=== PATIENT | female | born 1960 | race Hispanic/Latino ===

== ENCOUNTER 2017-09-28 22:54 | Emergency (ER) | payer MEDICAID, SELFPAY ==
[2017-09-28] MEDS ORDERED: Ondansetron HCl/PF 4 MG/2 ML Vial ONE (23:14)
[2017-09-28 23:21] LABS: #Basophils 0.1 thou/uL (0.0-0.2); #Lymphocytes 1.8 thou/uL (1.20-3.40); #Monocytes 0.6 thou/uL (0.11-0.59); #Neutrophils 13.3 thou/uL (1.40-6.50); %Basophils 0.5 % (0.0-1.0); %Eosinophils 0.2 % (0.0-10.0); %Lymphocytes 11.6 % (21.0-51.0); %Monocytes 3.5 % (0.0-10.0); %Neutrophils 84.1 % (42.0-75.0); Mean Corpuscular HGB CONC 33.4 g/dL (32.0-36.0); Mean Corpuscular Hemoglobin 30.7 pg (27.0-31.0); Mean Corpuscular Volume 91.8 fl (81.0-99.0); Platelet Count 343 thou/uL (130-400); RBC Distribution Width 12.1 % (11.5-14.5); White Blood Cell (WBC) Count 15.8 thou/uL (4.8-10.8)
[2017-09-28 23:42] LABS: ALT (SGPT) 13 U/L (8-55); AST (SGOT) 11 U/L (5-34); Albumin 4.5 g/dL (3.5-5.0); Alkaline Phosphatase 100 U/L (40-150); Anion Gap 15 mmol/L (10-20); BUN (Urea Nitrogen) 27 mg/dL (9.8-20.1); Bilirubin, Total 1.2 mg/dL (0.2-1.2); Calc. Creatinine Clearance 0 mL/min (70-130); Calcium 11.8 mg/dL (7.8-10.44); Carbon Dioxide 28 mmol/L (22-29); Chloride 100 mmol/L (98-107); Estimated GFR-MDRD 28; Globulin 3.9 g/dL (2.4-3.5); Glucose 433 mg/dL (70-105); Lipase 78 U/L (8-78); Potassium 3.9 mmol/L (3.5-5.1); Protein, Total 8.4 g/dL (6.0-8.3); Sodium 139 mmol/L (136-145)
[2017-09-28 23:53] LABS: Bilirubin Negative (Negative); Blood, Urine Trace (Negative); Clarity CLOUDY (Clear); Glucose, Urine (Dipstick) >=1000 mg/dL (Negative); Leukocyte Small (Negative); Nitrite Negative (Negative); Protein, Urine (Dipstick) > or equal to 300 mg/dL (Neg-Trace); Specific Gravity, Urine 1.024 (1.002-1.036)
[2017-09-28 23:56] LABS: Bacteria/HPF 1+ HPF (None Seen); Hyaline Casts/LPF 0-3 HYALINE CAST LPF (0-3 Hyaline); WBC/HPF 21-50 HPF (0-3)
[2017-09-29] LABS: Yeast-AUWi Flag 32.3 (0-25.0)
[2017-09-29] MEDS ORDERED: Ondansetron HCl/PF 4 MG/2 ML Vial ONE (00:08)
[2017-09-29 00:13] LABS: Renal Epithelial None Seen HPF (0-3); Transitional Epithelial NONE SEEN HPF (0-3); Yeast-All Forms None Seen HPF (None Seen)
[2017-09-29 00:17] LABS: CKMB 1.2 ng/mL (0-6.6)
[2017-09-29 01:12] LABS: Base Excess-Venous 1.3 mmol/L (-30.0-30.0); Bicarbonate (HCO3v) 25.3 mmol/L (1.0-85.0); CO2 Tension (PvCO2) 37.2 mmHg (41.0-51.0); Calcium, Ionized 1.25 mmol/L (1.12-1.32); Hemoglobin - Calc 12.5 g/dL (12.0-18.0); O2 Tension (PvO2) 47.9 mmHg (35.0-45.0); Potassium 3.5 mmol/L (3.4-4.7); T. Carbon Dioxide 26.5 mmol/L (1.0-85.0); pH (Venous) 7.441 (7.35-7.45)
[2017-09-29] MEDS ORDERED: Promethazine HCl 25 MG/ML VIAL ONE (01:52)
[2017-09-29] MEDS ORDERED: Amlodipine 5 MG TAB ONE (01:53)
[2017-09-29] MEDS ORDERED: Insulin Regular 300 UNITS/3 ML VIAL ONE (03:35)
--- NOTE | 2017-09-29 07:46 | RAD ---
RADIOGRAPH CHEST 1 VIEW: HISTORY: A 57-year-old female with chest pain. FINDINGS: There are no air space densities, pulmonary edema, pneumothorax, or cardiomegaly. The lateral costop hrenic angles are sharp. IMPRESSION: No acute cardiopulmonary findings. jn [] POS: JIN
== END 2017-09-29 05:30 | disposition home or self-care (01) ==
LOC: ERS 22:54
DX: E86.0 Dehydration (principal); E11.10 Type 2 diabetes mellitus with ketoacidosis without coma; E11.65 Type 2 diabetes mellitus with hyperglycemia; E03.9 Hypothyroidism, unspecified; Z79.4 Long term (current) use of insulin; Z79.899 Other long term (current) drug therapy
CPT/HCPCS: 36416; 71045; 80053; 81003; 81015; 82010; 82330; 82435; 82553; 82803; 83690; 84132; 84295; 84484; 85014; 85025; 93005; 96361; 96365; 96375; 96376; J1815; J2405; J2550

== ENCOUNTER 2017-09-30 17:58 | Emergency (ER) | payer SELFPAY ==
[2017-09-30 20:02] LABS: #Basophils 0.1 thou/uL (0.0-0.2); #Eosinphils 0.1 thou/uL (0.0-0.7); #Lymphocytes 2.6 thou/uL (1.20-3.40); %Basophils 0.7 % (0.0-1.0); %Eosinophils 0.8 % (0.0-10.0); %Lymphocytes 20.3 % (21.0-51.0); %Monocytes 7.7 % (0.0-10.0); %Neutrophils 70.5 % (42.0-75.0); Hemoglobin 12.8 g/dL (12.0-16.0); Mean Corpuscular HGB CONC 34.4 g/dL (32.0-36.0); Mean Corpuscular Hemoglobin 31.2 pg (27.0-31.0); Mean Corpuscular Volume 90.7 fl (81.0-99.0); Mean Platelet Volume 7.6 fL (7.4-10.4); Platelet Count 315 thou/uL (130-400); RBC Distribution Width 11.8 % (11.5-14.5); Red Blood Cell (RBC) Count 4.09 mill/uL (4.20-5.40); White Blood Cell (WBC) Count 12.8 thou/uL (4.8-10.8)
[2017-09-30 20:10] LABS: Base Excess-Venous 2.4 mmol/L (-30.0-30.0); Bicarbonate (HCO3v) 27.6 mmol/L (1.0-85.0); Calcium, Ionized 1.37 mmol/L (1.12-1.32); O2 Tension (PvO2) 23.6 mmHg (35.0-45.0); Potassium 3.4 mmol/L (3.4-4.7); pH (Venous) 7.406 (7.35-7.45); vO2 Saturation-calc 41.4 % (0.0-100.0)
[2017-09-30] MEDS ORDERED: Metoclopramide HCl 10 MG/2 ML VIAL ONE (20:12)
[2017-09-30 20:23] LABS: ALT (SGPT) 8 U/L (8-55); AST (SGOT) 9 U/L (5-34); Albumin 4.2 g/dL (3.5-5.0); Alkaline Phosphatase 81 U/L (40-150); Anion Gap 11 mmol/L (10-20); BUN (Urea Nitrogen) 22 mg/dL (9.8-20.1); Bilirubin, Total 1.2 mg/dL (0.2-1.2); Calc. Creatinine Clearance 0 mL/min (70-130); Calcium 11.2 mg/dL (7.8-10.44); Carbon Dioxide 27 mmol/L (22-29); Chloride 107 mmol/L (98-107); Estimated GFR-MDRD 31; Globulin 3.1 g/dL (2.4-3.5); Glucose 116 mg/dL (70-105); Potassium 3.4 mmol/L (3.5-5.1); Protein, Total 7.3 g/dL (6.0-8.3); Sodium 142 mmol/L (136-145)
== END 2017-09-30 21:00 | disposition home or self-care (01) ==
LOC: ERS 17:58
DX: R11.2 Nausea with vomiting, unspecified (principal); E03.9 Hypothyroidism, unspecified; I10 Essential (primary) hypertension; E11.42 Type 2 diabetes mellitus with diabetic polyneuropathy; Z79.899 Other long term (current) drug therapy
CPT/HCPCS: 80053; 82010; 82330; 82803; 85025; 96365; J2765

== ENCOUNTER 2018-05-22 17:21 | Outpatient (CLI) | payer MEDICAID ==
--- NOTE | 2018-05-22 18:52 | RAD ---
TWO VIEW CHEST: HISTORY: Shortness of breath. Cough. Possible pneumonia. FINDINGS: The lungs appear clear. no evidence of infiltrate identified. The heart and mediastinum are unremar kable. IMPRESSION: No evidence of infiltrate. POS: AGW
== END 2018-05-22 17:22 | disposition home or self-care (01) ==
LOC: RAD 17:21
PROVIDERS: ATTEND Internal Medicine
DX: J45.40 Moderate persistent asthma, uncomplicated (principal)
CPT/HCPCS: 71046

== ENCOUNTER 2019-08-02 11:35 | Inpatient (IN) | payer MEDICAID, OTHER ==
[2019-08-02] MEDS ORDERED: niCARdipine 25 MG in Sodium Chloride 0.9% 250 ML 240 ML IVPB SCH (12:15)
[2019-08-02] MEDS ORDERED: hydrALAZINE 20 MG/ML VIAL ONE (12:20)
[2019-08-02] MEDS ORDERED: Amlodipine 5 MG TAB ONE (12:33)
[2019-08-02] MEDS ORDERED: Ondansetron PF 4 MG/2 ML Vial ONE (12:35)
[2019-08-02 12:41] LABS: #Lymphocytes 1.5 thou/uL (1.20-3.40); #Monocytes 1.1 thou/uL (0.11-0.59); #Neutrophils 16.2 thou/uL (1.40-6.50); %Eosinophils 0.1 % (0.0-10.0); %Lymphocytes 7.9 % (21.0-51.0); %Monocytes 5.7 % (0.0-10.0); %Neutrophils 86.3 % (42.0-75.0); Mean Corpuscular Hemoglobin 30.9 pg (27.0-31.0); Mean Corpuscular Volume 91.1 fL (78.0-98.0); Mean Platelet Volume 7.9 fL (7.4-10.4); Platelet Count 333 thou/uL (130-400); Red Blood Cell (RBC) Count 3.87 mill/uL (4.20-5.40); White Blood Cell (WBC) Count 18.8 thou/uL (4.8-10.8)
[2019-08-02] MEDS ORDERED: Amlodipine 10 MG TAB PO SCH (12:45)
[2019-08-02 13:05] LABS: ALT (SGPT) 9 U/L (8-55); AST (SGOT) 11 U/L (5-34); Albumin 3.4 g/dL (3.5-5.0); Alkaline Phosphatase 79 U/L (40-110); Anion Gap 16 mmol/L (10-20); BUN (Urea Nitrogen) 55 mg/dL (9.8-20.1); Bilirubin, Total 0.7 mg/dL (0.2-1.2); Calc. Creatinine Clearance 0 mL/min (70-130); Calcium 9.7 mg/dL (7.8-10.44); Carbon Dioxide 18 mmol/L (22-29); Chloride 109 mmol/L (98-107); Estimated GFR-MDRD 9; Globulin 2.9 g/dL (2.4-3.5); Glucose 385 mg/dL (70-105); Potassium 4.6 mmol/L (3.5-5.1); Protein, Total 6.3 g/dL (6.0-8.3); Sodium 138 mmol/L (136-145)
[2019-08-02 13:56] LABS: CKMB 3.4 ng/mL (0-6.6)
[2019-08-02] MEDS ORDERED: Dextrose 5% in Water 1,000 ML IV PRN (16:05)
[2019-08-02] MEDS ORDERED: Dextrose 50% Abboject 50 ML SYRINGE SLOW IVP PRN (16:05)
[2019-08-02] MEDS ORDERED: Ondansetron PF 4 MG/2 ML Vial IVP PRN (16:10)
[2019-08-02] MEDS ORDERED: Acetaminophen 650 MG Suppository PR PRN (16:10)
[2019-08-02] MEDS ORDERED: Ondansetron ODT 4 MG TAB PO PRN (16:10)
--- NOTE | 2019-08-02 16:15 | PDOC.HHP ---
Hospitalist HPI - History of Present Illness N/V/D History of Present Illness: Mrs. Dang presents complaining of nausea, vomiting and diarrhea since Tuesday. States it started suddenly with diarrhea and she had vomiting immediately after. It has been persistent and she developed watery stools. No blood in the stools and no hematemesis. No associated abdominal pain. Has not been on antibiotics recently. No cough, sob or chest pain. Not able to tolerate any oral intake therefore hasn't had anything to eat or drink since Tuesday. She has had decreased urinary output. Reports having low grade temperatures as well. Due to the vomiting she hasnt been able to take her medications and so her blood pressure has been uncontrolled. Complains of a mild headache and has started noting some lightheadedness when she stands. Her children have had colds and flu like symptoms but no one at home has had n/v /d but her. Transferred here due to severe acute on chronic renal insufficiency and hypertensive urgency. Of note she was previously recommended consultation with a Final Finisher but she never went. ED Course: Initially seen in [place] where she states she was treated with IV fluids. On arrival here she had a significantly elevated BP of 245/124. She was given Amlodipine 10 mg PO and Hydralazine 10 mg IV. Her BP improved to 133/87. Initial order for Cardene drip therefore cancelled. CXR was normal. Labs notable for leukocytosis and an elevated creatinine of 4.98, GFR of 9. Significantly worse from baseline. Consult was placed to Nephrology (Dr. Calixto). EKG: NSR, HR 94. No ST changes or T wave abnormalities. Initial trop in the ED was indeterminate. She has not had any complaints of chest pain. Hospitalist ROS - Review of Systems Constitutional: reports: malaise Eyes: denies: pain, vision change, conjunctivae inflammation, eyelid inflammation, redness, other ENT: reports: other (dry mouth) Respiratory: denies: cough, dry, shortness of breath, hemoptysis, SOB with excertion, pleuritic pain, sputum, wheezing, other Cardiovascular: reports: light headedness. denies: chest pain, palpitations, orthopnea, paroxysmal noc. dyspnea, edema, other Gastrointestinal: reports: nausea, vomiting, diarrhea (NVD has settled since yesterday) Genitourinary: reports: other (decreased urinary output x 2 days) Musculoskeletal: denies: neck pain, shoulder pain, arm pain, back pain, hand pain, leg pain, foot pain, other Skin: denies: rash, lesions, justin, bruising, other Neurological: denies: weakness, numbness, incoordination, change in speech, confusion, seizures, other Hospitalist History - Past Medical History Cardiac: reports: HTN RECORD CHANGER: reports: Peripheral neuropathy Renal/: reports: Chronic renal failure Endocrine: reports: Diabetes, Hypothyroidism - Past Surgical History Past Surgical History: reports: Cholecystectomy, Hysterectomy - Social History Smoking Status: Never smoker Alcohol: reports: None Drugs: reports: none Living Situation: With Family Activity level: independent ambulation - Exam General Appearance: NAD, awake alert, ill appearing Eye: PERRL, anicteric sclera Eye - other findings: exophtalmos ENT: dry oral mucosa Neck: supple, no lymphadenopathy Heart: RRR, no murmur, no gallops, no rubs Respiratory: CTAB, no wheezes, no rales, no ronchi, normal chest expansion, no tachypnea Gastrointestinal: soft, non-tender, non-distended, normal bowel sounds, no palpable masses, no guarding, no rigidity Extremities: no cyanosis, no clubbing, no edema Skin: tenting Neurological: cranial nerve grossly intact Musculoskeletal: normal tone, normal strength, generalized weakness Psychiatric: normal affect, normal behavior, A&O x 3 Hospitalist Results - Labs Result Diagrams: 08/02/19 12:35 08/02/19 12:35 Lab results: WBC 18.8 thou/uL (4.8-10.8) H 08/02/19 12:35 Hgb 12.0 g/dL (12.0-16.0) 08/02/19 12:35 Hct 35.2 % (36.0-47.0) L 08/02/19 12:35 MCV 91.1 fL (78.0-98.0) 08/02/19 12:35 Plt Count 333 thou/uL (130-400) 08/02/19 12:35 Neutrophils % 86.3 % (42.0-75.0) H 08/02/19 12:35 Sodium 138 mmol/L (136-145) 08/02/19 12:35 Potassium 4.6 mmol/L (3.5-5.1) 08/02/19 12:35 Chloride 109 mmol/L (98-107) H 08/02/19 12:35 Carbon Dioxide 18 mmol/L (22-29) L 08/02/19 12:35 BUN 55 mg/dL (9.8-20.1) H 08/02/19 12:35 Creatinine 4.98 mg/dL (0.6-1.1) H 08/02/19 12:35 Glucose 385 mg/dL (70-105) H 08/02/19 12:35 Calcium 9.7 mg/dL (7.8-10.44) 08/02/19 12:35 Total Bilirubin 0.7 mg/dL (0.2-1.2) 08/02/19 12:35 AST 11 U/L (5-34) 08/02/19 12:35 ALT 9 U/L (8-55) 08/02/19 12:35 Alkaline Phosphatase 79 U/L (40-110) 08/02/19 12:35 Creatine Kinase 78 U/L (29-168) 08/02/19 12:35 CK-MB (CK-2) 3.4 ng/mL (0-6.6) 08/02/19 12:35 Troponin I 0.033 ng/mL (< 0.028) H 08/02/19 12:35 B-Natriuretic Peptide 89.6 pg/mL (0-100) 08/02/19 12:35 Serum Total Protein 6.3 g/dL (6.0-8.3) 08/02/19 12:35 Albumin 3.4 g/dL (3.5-5.0) L 08/02/19 12:35 - Radiology Interpretation Chest x-ray Status: report reviewed by ak Hospitalist H&P A/P - Problem (1) Malaise and fatigue Code(s): R53.81 - OTHER MALAISE; R53.83 - OTHER FATIGUE Status: Acute (2) Nausea & vomiting Code(s): R11.2 - NAUSEA WITH VOMITING, UNSPECIFIED Status: Acute (3) Diarrhea Code(s): R19.7 - DIARRHEA, UNSPECIFIED Status: Resolved Qualifiers: Diarrhea type: unspecified type Qualified Code(s): R19.7 - Diarrhea, unspecified (4) Gastroenteritis Code(s): K52.9 - NONINFECTIVE GASTROENTERITIS AND COLITIS, UNSPECIFIED Status : Acute (5) Acute on chronic renal insufficiency Code(s): N28.9 - DISORDER OF KIDNEY AND URETER, UNSPECIFIED; N18.9 - CHRONIC KIDNEY DISEASE, UNSPECIFIED Status: Acute (6) DMII (diabetes mellitus, type 2) Status: Chronic (7) HTN (hypertension) Code(s): I10 - ESSENTIAL (PRIMARY) HYPERTENSION Status: Chronic (8) Hypothyroid Code(s): E03.9 - HYPOTHYROIDISM, UNSPECIFIED Status: Chronic - Plan Plan: IV hydration. Monitor I/Os. UA/UCx. Lightheadedness due to dehydration. Orthostatis BPs. Obtain 2nd trop, first indeterminate. EKG normal. No CP. Consult placed to Dr. Calixto, Nephrology. BP now improved after Amlodipine and Hydralazine. Monitor BP and resume home medications. Initiate sliding scale and monitor glucose. Clear liquid diet and advance as tolerated. Antiemetics. No abdominal pain, LFTs normal, no indication for CT imaging, likely viral gastroenteritis. DVT prophylaxis with mechanical SCDs. GI Prophylaxis with Famotidine. CODE STATUS FULL Surrogate decision maker: Opal Lozoya, daughter.
[2019-08-02] MEDS ORDERED: Nitroglycerin 2% Ointment 1 INCH/1 GM Packet ONE (16:30)
[2019-08-02 16:48] LABS: Lactic Acid 1.4 mmol/L (0.5-2.2)
[2019-08-02 16:58] LABS: Troponin I 0.038 ng/mL (< 0.028)
[2019-08-02] MEDS: Sodium Chloride 0.9% 1,000 ML IV SCH (18:10)
[2019-08-02 22:11] LABS: Bacteria/HPF None Seen HPF (None Seen); Bilirubin Negative (Negative); Blood, Urine 1+ (Negative); Clarity Clear (Clear); Glucose, Urine (Dipstick) 500 mg/dL (Negative); Leukocyte Negative Leu/uL (Negative); Nitrite Negative (Negative); Protein, Urine (Dipstick) Greater than 600 mg/dL (Neg-Trace); Squamous Epithelial 0-3 HPF (0-3); Urobilinogen Normal mg/dL (Less than 2); WBC/HPF 0-3 HPF (0-3)
[2019-08-02 22:13] LABS: Urine Culture Reflex No No
[2019-08-03] MEDS: Sodium Chloride 0.9% 1,000 ML IV SCH ×3 (03:28→21:44)
[2019-08-03 05:41] LABS: #Basophils 0.1 thou/uL (0.0-0.2); #Lymphocytes 1.6 thou/uL (1.20-3.40); #Monocytes 0.9 thou/uL (0.11-0.59); #Neutrophils 10.1 thou/uL (1.40-6.50); %Basophils 0.4 % (0.0-1.0); %Eosinophils 0.1 % (0.0-10.0); %Lymphocytes 12.4 % (21.0-51.0); %Monocytes 7.4 % (0.0-10.0); %Neutrophils 79.7 % (42.0-75.0); Hemoglobin 11.1 g/dL (12.0-16.0); Mean Corpuscular HGB CONC 34.1 g/dL (32.0-36.0); Mean Corpuscular Hemoglobin 30.8 pg (27.0-31.0); Mean Corpuscular Volume 90.4 fL (78.0-98.0); Mean Platelet Volume 8.2 fL (7.4-10.4); Platelet Count 326 thou/uL (130-400); Red Blood Cell (RBC) Count 3.61 mill/uL (4.20-5.40); White Blood Cell (WBC) Count 12.7 thou/uL (4.8-10.8)
[2019-08-03 05:58] LABS: Anion Gap 13 mmol/L (10-20); BUN (Urea Nitrogen) 54 mg/dL (9.8-20.1); Calc. Creatinine Clearance 14 mL/min (70-130); Calcium 9.4 mg/dL (7.8-10.44); Carbon Dioxide 20 mmol/L (22-29); Chloride 111 mmol/L (98-107); Estimated GFR-MDRD 9; Glucose 64 mg/dL (70-105); Potassium 3.5 mmol/L (3.5-5.1); Sodium 140 mmol/L (136-145)
--- NOTE | 2019-08-03 08:23 | ULT ---
RENAL ULTRASOUND WITH DUPLEX EVALUATION HISTORY: Hypertension COMPARISON: None FINDINGS: Grayscale, color Doppler spectral Doppler images were obtained of the kidneys and bladder. Renal duplex evaluation was performed of the renal and aortic vasculature. The peak systolic velocity within the aorta was 127.8 cm/s. Right Kidney: Size: 11.9 x 5.0 x 5.7 cm Abnormality: Normal cortical echotexture. No hydronephrosis. The peak systolic velocity within the right renal arteries 148.1 cm/s. The right renal artery to aort ic ratio is 1.15. Sampled arcuate artery resistive index in the right kidney is 0.74 Left Kidney: Size: The left kidney measures 11.4 x 5.4 x 6.3 cm. Abnormality: Incidental note was made of a 1.4 cm cyst involving the inferior pole of the left kidney . No hydronephrosis is demonstrated. Peak systolic velocity within the left renal artery is 146.4 cm/s. The left renal artery to aortic ra vivi is 1.14. A sample resistive index within the left renal arcuate artery was 0.72. Urinary bladder: Normal mucosa. IMPRESSION: 1. No sonographic evidence to suggest presence of renal artery stenosis. 2. Small left renal cyst
[2019-08-03] MEDS: Amlodipine 10 MG TAB PO SCH (08:43)
[2019-08-03] MEDS: Famotidine/PF 20 mg/2ml Vial SLOW IVP SCH (08:44)
[2019-08-03] MEDS: hydrALAZINE 20 MG/ML VIAL SLOW IVP PRN (08:44)
[2019-08-03] MEDS: cloNIDine 0.1 MG TAB PO SCH ×2 (09:08→21:26)
--- NOTE | 2019-08-03 09:17 | PRG ---
DATE OF SERVICE: 08/03/2019 SUBJECTIVE: Ms. Dang is a 59-year-old female who was admitted for labile hypertension and acute kidney injury. She has history of generalized weakness, nausea, vomiting, and diarrhea. Empiric volume repletion is being given. We are following up for acute kidney injury on top of her chronic renal failure. No new complaints today. No chest pain or shortness of breath. OBJECTIVE: VITAL SIGNS: Blood pressure 217/108, heart rate 98, respiratory rate 16, temperature 98, and pulse ox 99%. GENERAL: Exam noted to be awake, alert, comfortable, sitting, not in distress. SKIN: Adequate turgor. HEENT: Pinkish conjunctivae. Anicteric sclerae. NECK: No neck mass. No carotid bruits. No JVD. CHEST: No deformities. LUNGS: Clear breath sounds. HEART: Normal sinus rhythm. No murmur. No gallops. No rubs. ABDOMEN: Globular, soft, nontender. No masses. Positive for bowel sounds. Negative for epigastric bruits. EXTREMITIES: No edema. No deformities. MEDICATIONS: On August 03, 2019, were reviewed. LABORATORY DATA: Laboratories on August 03, 2019, showed the following sodium 140, potassium 3.5, chloride 111, carbon dioxide 20, BUN 54, creatinine 4.93, glucose 64, and calcium 9.4. Hemoglobin 11.1, hematocrit 32.6. ASSESSMENT AND PLAN: 1. Acute kidney injury on top of chronic renal failure, superimposed prerenal azotemia. Continue IV hydration. No indication for any dialytic intervention. I did review the renal ultrasound, and there is no evidence of renal artery stenosis. In addition, there is no evidence of hydronephrosis. 2. Labile hypertension. Continue current BP medications. We will add clonidine 0.1 mg tablet b.i.d. 3. Overall, agree with current management. We will recheck basic metabolic profile and CBC in a.m. again tomorrow. Job ID: [id number]
[2019-08-03] MEDS: HumaLOG 300 UNITS/3 ML VIAL SC PRN ×3 (11:23→21:26)
--- NOTE | 2019-08-03 13:18 | CON ---
DATE OF CONSULTATION: 08/02/2019 SERVICE: Renal Medicine. HISTORY OF PRESENT ILLNESS: Ms. Dang is a 59-year-old female, who was admitted due to complaints of nausea and vomiting. This has been ongoing for several days. This was said to have been associated with headache and low-grade fever. She has had also decreased p.o. intake. Due to the worsening signs and symptoms, the patient went to the ER and she was found to have severely elevated blood pressure as well as an acute kidney injury on top of her chronic renal failure. Creatinine was noted to be 4.98 mg%. We are now evaluating this patient for further management of her acute kidney injury as well as chronic renal failure. ROS: no chest pain, no shortness of breath, no diarrhea, no dysuria, no abdominal pain, + nausea and vomiting, no melena, appetite and energy level is decreased, no headache, no sore throat, no fever or chills Meds of 08/02/19 - Reviewed PMH: Chronic Renal Failure, Type II DM, Hypertension, hyperlipidemia PSH: - S/p hysterectoy Social History: single, 3 children, lives in [place], retired loan officer assistant, education - HS; no smoking no alcohol intake, no IV drug use, sedentary lifestyle Allergies: See Medical Records Trauma: none Immunization: up to date Hospitalization: See PMH Family History: No ESRD BP - 170/90, HER-70, RR-12 Gen: Awake, alert,supine, comfortable,not in distress Skin: Adequate turgor, no rashs HEENT: Pinkish conjunctiva, anicteric sclerae, no neck mass, No JVD Lungs: Clear breath sounds, no wheezing, no crackles Heart: NSR, no murmur, no gallops, no rubs Abdomen: Globular, soft, non-tender Ext: No edema, no deformities Neuro: Awake, oriented to 3 spheres, moving all extremities, no tremors, no asterixis LABS of 08/02/19 - Reviewed 1. Acute Renal Failure/CRF - R/o superimposed pre-renal azotemia on top of her chronic renal failure; Her history of nausea and vomiting, use of previous diuretics maybe playing a possible pre-renal azotemia - our plan is empiric volume repletion with the patient; hold diuretics and VELMA-i inhibitors for the moment. No indication for any emergent dialytic intervention; review urine sediment and ultrasound - will also rule out possible renal artery stenosis with this patient Her history of DM suggests patient may have an underlying chronic renal failure secondary to diabetic nephropathy. For the moment agree with current management. Thank you for the consult, will continue to follow. Job ID: [id number] SORAYA
--- NOTE | 2019-08-03 16:56 | PDOC.HOSPP ---
- Subjective Subjective: Patient seen this morning. A little sleepy, but felt better in general. Had no complaints. - Objective Vital Signs & Weight: Vital Signs (12 hours) Temp Pulse Resp BP BP BP Pulse Ox 08/03/19 16:00 99.0 F 78 16 133/63 99 08/03/19 12:09 161/76 H 147/69 H 139/64 08/03/19 11:03 99.0 F 76 17 123/70 96 08/03/19 09:50 179/84 H 08/03/19 08:21 98.0 F 98 16 217/108 H 99 Weight Admit Weight 159 lb Weight 159 lb Result Diagrams: 08/03/19 04:21 08/03/19 04:21 Additional Labs: Accuchecks 08/03/19 08/03/19 08/02/19 10:29 05:54 19:18 POC Glucose 194 H 77 120 H Hospitalist ROS - Medication Medications: Active Medications Generic Name Dose Route Start Last Admin Trade Name Freq PRN Reason Stop Dose Admin Amlodipine Besylate 10 mg 08/03/19 09:00 08/03/19 08:43 Norvasc PO 10 mg DAILY JULIA Administration Clonidine 0.1 mg 08/03/19 09:00 08/03/19 09:08 Catapres PO 0.1 mg BID JULIA Administration Famotidine 20 mg 08/03/19 09:00 08/03/19 08:44 Pepcid SLOW IVP 20 mg DAILY JULIA Administration Hydralazine HCl 10 mg 08/03/19 08:36 08/03/19 08:44 Apresoline SLOW IVP 10 mg Q4H PRN Administration Hypertension Sodium Chloride 1,000 mls @ 100 mls/hr 08/02/19 16:15 08/03/19 15:40 Normal Saline 0.9% IV 1,000 mls .Q10H JULIA Administration Insulin Human Lispro 0 units 08/02/19 16:05 08/03/19 11:23 Humalog SC 2 unit .MILD SLIDING SCALE PRN Administration Mild Correctional Scale Ondansetron HCl 4 mg 08/02/19 16:10 08/03/19 08:45 Zofran IVP 4 mg Q6H PRN Administration Nausea/Vomiting Pantoprazole Sodium 40 mg 08/03/19 09:00 08/03/19 08:44 Protonix PO 40 mg DAILY JULIA Administration - Exam General Appearance: NAD, awake alert Eye - other findings: Exophthalmos. Heart: RRR, no murmur, no gallops, no rubs, normal peripheral pulses Respiratory: CTAB, no wheezes, no rales, no ronchi, normal chest expansion, no tachypnea, normal percussion Gastrointestinal: soft, non-tender, non-distended, normal bowel sounds, no palpable masses, no hepatomegaly, no splenomegaly, no bruit Extremities: no cyanosis, no clubbing, no edema Skin: normal turgor Psychiatric: somnolent Hosp A/P (1) Hypertensive urgency Code(s): I16.0 - HYPERTENSIVE URGENCY Status: Acute (2) Acute on chronic renal insufficiency Code(s): N28.9 - DISORDER OF KIDNEY AND URETER, UNSPECIFIED; N18.9 - CHRONIC KIDNEY DISEASE, UNSPECIFIED Status: Acute (3) Gastroenteritis Code(s): K52.9 - NONINFECTIVE GASTROENTERITIS AND COLITIS, UNSPECIFIED Status : Acute (4) Nausea & vomiting Code(s): R11.2 - NAUSEA WITH VOMITING, UNSPECIFIED Status: Acute (5) Diarrhea Code(s): R19.7 - DIARRHEA, UNSPECIFIED Status: Resolved Qualifiers: Diarrhea type: unspecified type Qualified Code(s): R19.7 - Diarrhea, unspecified (6) DMII (diabetes mellitus, type 2) Status: Chronic (7) HTN (hypertension) Code(s): I10 - ESSENTIAL (PRIMARY) HYPERTENSION Status: Chronic (8) Hypothyroid Code(s): E03.9 - HYPOTHYROIDISM, UNSPECIFIED Status: Chronic - Plan N/V/D: Appears to be improving. IVF. Symptomatic therapy. HTN urgency: IV meds prn. Dr. Calixto added Clonidine. acute on chronic kidney disease: Nephrology rec appreciated. IVF. Control BP. 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 Continue home meds. TSH is low and will need to be rechecked when she is not acutely ill. DM: Blood sugars well controlled. Continue home meds.
[2019-08-03] MEDS ORDERED: INSULIN DETEMIR SQ SCH (21:00)
[2019-08-03] MEDS ORDERED: Insulin Glargine 46 UNITS in Pre-Filled Syringe 1 EACH SC SCH (21:00)
[2019-08-04] MEDS: Acetaminophen 325 MG TAB PO PRN (02:41)
[2019-08-04 04:29] LABS: #Basophils 0.1 thou/uL (0.0-0.2); #Eosinphils 0.2 thou/uL (0.0-0.7); #Lymphocytes 1.4 thou/uL (1.20-3.40); #Monocytes 0.9 thou/uL (0.11-0.59); #Neutrophils 7.4 thou/uL (1.40-6.50); %Basophils 0.6 % (0.0-1.0); %Eosinophils 1.9 % (0.0-10.0); %Monocytes 8.6 % (0.0-10.0); %Neutrophils 74.9 % (42.0-75.0); Hemoglobin 11.1 g/dL (12.0-16.0); Mean Corpuscular HGB CONC 34.3 g/dL (32.0-36.0); Mean Corpuscular Hemoglobin 30.9 pg (27.0-31.0); Mean Corpuscular Volume 90.3 fL (78.0-98.0); Mean Platelet Volume 8.2 fL (7.4-10.4); Platelet Count 272 thou/uL (130-400); RBC Distribution Width 12.8 % (11.5-14.5); Red Blood Cell (RBC) Count 3.59 mill/uL (4.20-5.40); White Blood Cell (WBC) Count 9.9 thou/uL (4.8-10.8)
[2019-08-04 04:57] LABS: Anion Gap 13 mmol/L (10-20); BUN (Urea Nitrogen) 44 mg/dL (9.8-20.1); Calc. Creatinine Clearance 16 mL/min (70-130); Calcium 8.7 mg/dL (7.8-10.44); Carbon Dioxide 15 mmol/L (22-29); Chloride 109 mmol/L (98-107); Estimated GFR-MDRD 10; Glucose 145 mg/dL (70-105); Potassium 3.7 mmol/L (3.5-5.1); Sodium 133 mmol/L (136-145)
[2019-08-04] MEDS: Levothyroxine Sodium 50 MCG TAB PO SCH (05:16)
[2019-08-04] MEDS: Amlodipine 10 MG TAB PO SCH (07:11)
[2019-08-04] MEDS: cloNIDine 0.1 MG TAB PO SCH ×2 (07:11→21:34)
[2019-08-04] MEDS: Famotidine/PF 20 mg/2ml Vial SLOW IVP SCH (07:11)
[2019-08-04] MEDS: HumaLOG 300 UNITS/3 ML VIAL SC PRN ×3 (11:35→21:42)
[2019-08-04] MEDS: Sodium Chloride 0.9% 1,000 ML IV SCH ×2 (13:10→22:50)
--- NOTE | 2019-08-04 20:28 | PRG ---
DATE OF SERVICE: 08/04/2019 SUBJECTIVE: Ms. Dang is a 59-year-old female, who was seen by the Renal Service for her acute kidney injury on top of her chronic renal failure. She has been empirically volume repleted with slow improvement of the renal function. She voices no new complaints today. No chest pain or shortness of breath. OBJECTIVE: VITAL SIGNS: Blood pressure is 144/82, heart rate 69, respiratory rate 18, temperature 99.1, and pulse ox 97%. GENERAL: Noted to be awake, alert, comfortable, not in distress. SKIN: Adequate turgor. HEENT: She has a pinkish conjunctivae. Anicteric sclerae. No neck mass. No carotid bruits. No JVD. CHEST: No deformities. LUNGS: Clear breath sounds. HEART: Normal sinus rhythm. No murmur. No gallops. No rubs. ABDOMEN: Globular, soft, nontender. No masses. EXTREMITIES: No edema. No deformities. MEDICATIONS: Medications of 08/04/2019, were reviewed. LABORATORY DATA: Laboratories of 08/04/2019; white count 9.9, hemoglobin 11.1. On 08/04/2019, sodium 133, potassium 3.7, chloride 109, carbon dioxide 15, BUN 44, creatinine 4.67, glucose 145, calcium 8.7. ASSESSMENT AND PLAN: 1. Chronic renal failure/acute kidney injury, superimposed prerenal azotemia. Continue IV hydration. There is a slight improvement in the creatinine. I do not see any indication for any emergent dialytic intervention. Her underlying chronic renal failure is most likely from diabetic nephropathy. However, we will rule out other possible causes of the proteinuria to complete the workup for this patient. 2. Metabolic acidosis. Sodium bicarbonate 650 mg one tablet p.o. t.i.d. 3. Labile hypertension, much improved. Agree with current management. Continue IV hydration. 4. We will recheck CBC, basic metabolic panel, PTH, serum phosphorus, NOEMÍ, hepatitis B and C tomorrow. Job ID: [id number]
[2019-08-04] MEDS: Sodium Bicarbonate Tab 325 MG TAB PO SCH (21:34)
--- NOTE | 2019-08-04 22:03 | PDOC.HOSPP ---
- Subjective Encounter Date: 08/04/19 Encounter Time: 15:00 Subjective: The patient states her nausea, vomiting and diarrhea have resolved. She says her urine output has diminished compared to her baseline. She states family members had diarrhea but not nausea nad vomiting - Objective Vital Signs & Weight: Vital Signs (12 hours) Temp Pulse Resp BP BP BP Pulse Ox 08/04/19 21:33 98.7 F 68 16 157/74 H 98 08/04/19 15:27 99.1 F 69 18 144/82 H 97 08/04/19 11:29 99.4 F 65 16 155/79 H 156/84 H 152/76 H 95 Weight Admit Weight 159 lb Weight 163 lb 3 oz I&O: 08/03/19 08/04/19 08/05/19 06:59 06:59 06:59 Intake Total 4980 2400 Output Total 600 1300 Balance 4380 1100 Result Diagrams: 08/04/19 04:03 08/04/19 04:03 Additional Labs: Accuchecks 08/04/19 08/04/19 08/04/19 20:33 16:02 10:31 POC Glucose 301 H 287 H 259 H 08/04/19 05:11 POC Glucose 157 H Hospitalist ROS - Review of Systems Constitutional: denies: fever, chills - Medication Medications: Active Medications Generic Name Dose Route Start Last Admin Trade Name Freq PRN Reason Stop Dose Admin Acetaminophen 650 mg 08/02/19 16:10 08/04/19 02:41 Tylenol PO 650 mg Q4H PRN Administration Headache/Fever/Mild Pain (1-3) Amlodipine Besylate 10 mg 08/03/19 09:00 08/04/19 07:11 Norvasc PO 10 mg DAILY JULIA Administration Clonidine 0.1 mg 08/03/19 09:00 08/04/19 21:34 Catapres PO 0.1 mg BID JULIA Administration Famotidine 20 mg 08/03/19 09:00 08/04/19 07:11 Pepcid SLOW IVP 20 mg DAILY JULIA Administration Hydralazine HCl 10 mg 08/03/19 08:36 08/03/19 08:44 Apresoline SLOW IVP 10 mg Q4H PRN Administration Hypertension Sodium Chloride 1,000 mls @ 100 mls/hr 08/02/19 16:15 08/04/19 13:10 Normal Saline 0.9% IV 1,000 mls .Q10H JULIA Administration Insulin Human Lispro 0 units 08/02/19 16:05 08/04/19 16:16 Humalog SC 4 unit .MILD SLIDING SCALE PRN Administration Mild Correctional Scale Insulin Human Lispro 0 units 08/02/19 16:05 08/04/19 21:42 Humalog SC 4 unit .BEDTIME SLIDING SC PRN Administration Bedtime Correctional Scale Levothyroxine Sodium 50 mcg 08/04/19 06:00 08/04/19 05:16 Synthroid PO 50 mcg 0600 JULIA Administration Ondansetron HCl 4 mg 08/02/19 16:10 08/03/19 08:45 Zofran IVP 4 mg Q6H PRN Administration Nausea/Vomiting Pantoprazole Sodium 40 mg 08/03/19 09:00 08/04/19 07:11 Protonix PO 40 mg DAILY JULIA Administration Sodium Bicarbonate 650 mg 08/04/19 21:00 08/04/19 21:34 Bicarbonate, Sodium PO 650 mg TID JULIA Administration - Exam General Appearance: NAD, awake alert Eye: PERRL, anicteric sclera ENT: normocephalic atraumatic, no oropharyngeal lesions Neck: supple, symmetric, no JVD, no thyromegaly Heart: RRR, no murmur, no rubs Respiratory: CTAB, no wheezes, no rales, no ronchi Gastrointestinal: soft, non-tender, non-distended, normal bowel sounds Extremities: no cyanosis, no clubbing, no edema Skin: normal turgor, no lesions, no rashes Neurological: cranial nerve grossly intact, normal sensation to touch, no focal deficits, no new deficit Musculoskeletal: normal tone, normal strength, no muscle wasting Psychiatric: normal affect, normal behavior, A&O x 3 Hosp A/P - Plan Renal ultrasound: small left renal cyst This is a 59 year old female with past medical history of type II diabetes, hypothyroidism wh opresneted with Acute Kidney Injury -creatinine improved from 4.98 to 4.67. Continue IV fluids - per nephrology, plan to check hepatititis panel in the morning, NOEMÍ, SPEP, UPEP - urine protein > 600 Hypertensive urgency - continue on clonidine and amlodipine - BP improved Acute gastroenteritis - had WBC of 18 on admission with n/v/diarrhea, now resolved Hyponatremia - possibly from vomiting/diarrhea - sodium 133, will monitor - continue IV fluids Hypothyroidism - continue levothyroxine - TSH was elevated at 24 on admission Metabolic acidosis - bicarb of 15, on sodium bicarbonate TID Code status: full code
[2019-08-04] MEDS ORDERED: Insulin Glargine 15 UNITS in Pre-Filled Syringe 1 EACH SC SCH (22:15)
[2019-08-05] MEDS: hydrALAZINE 20 MG/ML VIAL SLOW IVP PRN (01:21)
[2019-08-05 04:57] LABS: Phosphorus 2.9 mg/dL (2.3-4.7)
[2019-08-05 05:01] LABS: Anion Gap 10 mmol/L (10-20); BUN (Urea Nitrogen) 39 mg/dL (9.8-20.1); Calc. Creatinine Clearance 17 mL/min (70-130); Carbon Dioxide 16 mmol/L (22-29); Chloride 111 mmol/L (98-107); Estimated GFR-MDRD 11; Glucose 155 mg/dL (70-105); Potassium 3.3 mmol/L (3.5-5.1); Sodium 134 mmol/L (136-145)
[2019-08-05 05:16] LABS: HBSAg Index 0.16 S/CO (0-0.99); Hep B Surf Ag Non-Reactive S/CO (NonReactive); Hep C IgG Ab Non-Reactive (NonReactive); Hep C Index 0.08 S/CO (0-0.79)
[2019-08-05 06:16] LABS: Band 4 % (5-11); Eosinophils 3 % (0-10); Hemoglobin 10.3 g/dL (12.0-16.0); Lymphocytes 26 % (21-51); MDiff Complete? YES; Mean Corpuscular HGB CONC 34.3 g/dL (32.0-36.0); Mean Corpuscular Hemoglobin 30.8 pg (27.0-31.0); Mean Corpuscular Volume 89.6 fL (78.0-98.0); Monocytes 7 % (0-10); Neutrophil 57 % (42-75); Platelet Count 223 thou/uL (130-400); Platelet Morphology Comment Appears Adequate; RBC Distribution Width 12.9 % (11.5-14.5); Reactive Lymphocytes 2 % (0-10); Red Blood Cell (RBC) Count 3.34 mill/uL (4.20-5.40); White Blood Cell (WBC) Count 8.6 thou/uL (4.8-10.8)
[2019-08-05] MEDS: Levothyroxine Sodium 50 MCG TAB PO SCH (06:20)
[2019-08-05] MEDS ORDERED: Potassium Chloride 20 MEQ TAB PO SCH (08:00)
[2019-08-05] MEDS: Amlodipine 10 MG TAB PO SCH (08:58)
[2019-08-05] MEDS: cloNIDine 0.1 MG TAB PO SCH ×2 (08:58→20:30)
[2019-08-05] MEDS: Calcitriol 0.25 MCG CAP PO SCH (08:58)
[2019-08-05] MEDS: Sodium Bicarbonate Tab 325 MG TAB PO SCH ×3 (08:58→20:30)
[2019-08-05] MEDS: Famotidine/PF 20 mg/2ml Vial SLOW IVP SCH (08:59)
[2019-08-05] MEDS: Sodium Chloride 0.9% 1,000 ML IV SCH (08:59)
[2019-08-05] MEDS: Albumin 25% 25 GM/100 ML BOT IVPB SCH ×3 (10:16→21:34)
--- NOTE | 2019-08-05 10:55 | PRG ---
DATE OF SERVICE: 08/05/2019 SUBJECTIVE: Ms. Dang is a 59-year-old female, who was admitted for her worsening renal dysfunction. Initially, we felt that she may have an acute kidney injury on top of her chronic renal failure from presumed diabetic nephropathy. IV hydration has been done with slow improvement of her creatinine. The patient voices no new complaints today. No chest pain. No shortness of breath. Please note, her urine showed significant proteinuria. OBJECTIVE: VITAL SIGNS: Blood pressure 163/79, heart rate 70, respiratory rate 16, temperature 98.8, and pulse ox 98%. GENERAL: Noted to be awake, alert, comfortable, not in overt distress. SKIN: Adequate turgor. HEENT: She has a pinkish conjunctivae. Anicteric sclerae. NECK: No neck mass. No carotid bruits. No JVD. CHEST: No deformities. LUNGS: Clear breath sounds. No wheezing. No crackles. HEART: Normal sinus rhythm. No murmur. No gallops. No rubs. ABDOMEN: Globular, soft, and nontender. No masses. EXTREMITIES: No edema. No deformities. MEDICATIONS: Medications of August 05, 2019, was reviewed. LABORATORY DATA: Laboratories of August 05, 2019; white count 8.6, hemoglobin 10.3. Sodium 134, potassium 3.3, chloride 111, carbon dioxide 16, BUN 39, creatinine 4.33, glucose 155, and calcium 8. PTH 755. Phosphorus 2.9. Hemoglobin 10.3. ASSESSMENT AND PLAN: 1. Chronic renal failure from a presumed diabetic nephropathy - renal function slowly improving. Creatinine is noted at 4.33 and previously, this was noted to be as high as 4.98. There is a slow improvement. However, the improvement is not very significant. I did discuss with the patient regarding the possibility of dialytic intervention as well as eventual renal transplantation. I gave her my cellphone and her daughter will be getting in touch with me, so I could explain her overall clinical situation. 2. Secondary hyperparathyroidism. Calcitriol 0.25 mcg tablet daily has been started. I will continue current IV hydration. I have decided to start her on albumin 25 g IV q.6 for 4 doses. Furthermore, workup for proteinuria has been done. We had ordered an NOEMÍ with this patient, ANCA, urine serum protein electrophoresis. Overall, agree with current management. Job ID: [id number]
[2019-08-05] MEDS: HumaLOG 300 UNITS/3 ML VIAL SC PRN ×2 (12:00→17:05)
--- NOTE | 2019-08-05 16:41 | PDOC.HOSPP ---
- Subjective Encounter Date: 08/05/19 Encounter Time: 15:00 Subjective: The patient is doing better. No nausea, vomiting diarrhea, urine output slightly better. Per family, patient has had multiple hospitalizations for nausea/vomiting/diarrhea. She had CKD before but not to this extent. Nephro told patient she may need dialysis since she is slow to improve. The patient reported some headache this morning which was relieved with tylenol - Objective Vital Signs & Weight: Vital Signs (12 hours) Temp Pulse Resp BP Pulse Ox 08/05/19 15:43 98.2 F 76 16 178/87 H 99 08/05/19 11:25 98.3 F 68 16 163/83 H 99 08/05/19 07:30 98.8 F 70 16 163/79 H 98 Weight Admit Weight 159 lb Weight 163 lb 3 oz I&O: 08/04/19 08/05/19 08/06/19 06:59 06:59 06:59 Intake Total 4980 3880 Output Total 600 3080 Balance 4380 800 Result Diagrams: 08/05/19 04:05 08/05/19 04:05 Additional Labs: Accuchecks 08/05/19 08/05/19 08/05/19 11:01 05:38 01:05 POC Glucose 225 H 155 H 198 H 08/04/19 08/04/19 20:33 16:02 POC Glucose 301 H 287 H Hospitalist ROS - Review of Systems Constitutional: denies: fever, chills Respiratory: denies: cough, dry - Medication Medications: Active Medications Generic Name Dose Route Start Last Admin Trade Name Freq PRN Reason Stop Dose Admin Acetaminophen 650 mg 08/02/19 16:10 08/04/19 02:41 Tylenol PO 650 mg Q4H PRN Administration Headache/Fever/Mild Pain (1-3) Albumin Human 25 gm 08/05/19 10:00 08/05/19 15:37 Albumin 25% IVPB 08/06/19 04:01 25 gm 0400,1000,1600,2200 JULIA Administration Amlodipine Besylate 10 mg 08/03/19 09:00 08/05/19 08:58 Norvasc PO 10 mg DAILY JULIA Administration Calcitriol 0.25 mcg 08/05/19 09:00 08/05/19 08:58 Rocaltrol PO 0.25 mcg DAILY JULIA Administration Clonidine 0.1 mg 08/03/19 09:00 08/05/19 08:58 Catapres PO 0.1 mg BID JULIA Administration Famotidine 20 mg 08/03/19 09:00 08/05/19 08:59 Pepcid SLOW IVP Not Given DAILY JULIA Hydralazine HCl 10 mg 08/03/19 08:36 08/05/19 01:21 Apresoline SLOW IVP 10 mg Q4H PRN Administration Hypertension Insulin Human Lispro 0 units 08/02/19 16:05 08/05/19 12:00 Humalog SC 3 unit .MILD SLIDING SCALE PRN Administration Mild Correctional Scale Insulin Human Lispro 0 units 08/02/19 16:05 08/04/19 21:42 Humalog SC 4 unit .BEDTIME SLIDING SC PRN Administration Bedtime Correctional Scale Levothyroxine Sodium 50 mcg 08/04/19 06:00 08/05/19 06:20 Synthroid PO 50 mcg 0600 JULIA Administration Ondansetron HCl 4 mg 08/02/19 16:10 08/03/19 08:45 Zofran IVP 4 mg Q6H PRN Administration Nausea/Vomiting Pantoprazole Sodium 40 mg 08/03/19 09:00 08/05/19 08:58 Protonix PO 40 mg DAILY JULIA Administration Sodium Bicarbonate 650 mg 08/04/19 21:00 08/05/19 15:37 Bicarbonate, Sodium PO 650 mg TID JULIA Administration - Exam General Appearance: NAD, awake alert Eye: PERRL, anicteric sclera ENT: normocephalic atraumatic, no oropharyngeal lesions Neck: supple, symmetric, no JVD, no thyromegaly Heart: RRR, no murmur, no gallops, no rubs Respiratory: CTAB, no wheezes, no rales, no ronchi Gastrointestinal: soft, non-tender, non-distended, normal bowel sounds Extremities: no cyanosis, no clubbing, no edema Skin: normal turgor, no lesions, no rashes Hosp A/P - Plan Renal ultrasound: small left renal cyst This is a 59 year old female with past medical history of type II diabetes, hypothyroidism wh opresneted with Acute Kidney Injury -creatinine improved to 4.33. Will stop IV fluids and do albumin for now - hepatitis panel normal. NOEMÍ, SPEP, UPEP pending - urine protein > 600 - check BMP tomorrow, may need dialysis eventually Hypokalemia - potassium 3.3, give 20 meq and recheck Hypertensive urgency - continue on clonidine and amlodipine. Add hydralazin 25 mg daily since BP still 170 Acute gastroenteritis - had WBC of 18 on admission with n/v/diarrhea, now resolved Hyponatremia - possibly from vomiting/diarrhea - sodium 134, will monitor Hypothyroidism - continue levothyroxine - TSH was elevated at 24 on admission Metabolic acidosis - bicarb of 15, on sodium bicarbonate TID Type II diabetes - continue levemir 15 units qhs Disposition: pending improvement in creatinine Code status: full code
[2019-08-05] MEDS ORDERED: hydrALAZINE 25 MG TAB PO SCH (17:00)
[2019-08-05 17:12] LABS: Potassium 4.1 mmol/L (3.5-5.1)
[2019-08-05] MEDS: Insulin Glargine 15 UNITS in Pre-Filled Syringe 1 EACH SC SCH (20:30)
[2019-08-06] MEDS: Albumin 25% 25 GM/100 ML BOT IVPB SCH (04:06)
[2019-08-06] MEDS: Levothyroxine Sodium 50 MCG TAB PO SCH (04:06)
[2019-08-06 04:48] LABS: #Eosinphils 0.4 thou/uL (0.0-0.7); #Lymphocytes 1.9 thou/uL (1.20-3.40); #Monocytes 0.7 thou/uL (0.11-0.59); %Basophils 0.6 % (0.0-1.0); %Eosinophils 5.2 % (0.0-10.0); %Lymphocytes 23.7 % (21.0-51.0); %Monocytes 8.8 % (0.0-10.0); %Neutrophils 61.7 % (42.0-75.0); Mean Corpuscular HGB CONC 34.7 g/dL (32.0-36.0); Mean Corpuscular Hemoglobin 31.4 pg (27.0-31.0); Mean Corpuscular Volume 90.6 fL (78.0-98.0); Mean Platelet Volume 8.6 fL (7.4-10.4); Platelet Count 189 thou/uL (130-400); RBC Distribution Width 12.9 % (11.5-14.5); Red Blood Cell (RBC) Count 2.86 mill/uL (4.20-5.40); White Blood Cell (WBC) Count 8.1 thou/uL (4.8-10.8)
[2019-08-06 05:12] LABS: Anion Gap 10 mmol/L (10-20); BUN (Urea Nitrogen) 39 mg/dL (9.8-20.1); Calc. Creatinine Clearance 16 mL/min (70-130); Calcium 8.3 mg/dL (7.8-10.44); Carbon Dioxide 16 mmol/L (22-29); Chloride 113 mmol/L (98-107); Estimated GFR-MDRD 10; Glucose 266 mg/dL (70-105); Sodium 135 mmol/L (136-145)
[2019-08-06] MEDS: Famotidine/PF 20 mg/2ml Vial SLOW IVP SCH (08:20)
[2019-08-06] MEDS: cloNIDine 0.1 MG TAB PO SCH ×2 (08:21→21:28)
[2019-08-06] MEDS: Calcitriol 0.25 MCG CAP PO SCH (08:21)
[2019-08-06] MEDS: Amlodipine 10 MG TAB PO SCH (08:21)
[2019-08-06] MEDS: HumaLOG 300 UNITS/3 ML VIAL SC PRN ×4 (08:22→21:29)
[2019-08-06] MEDS: Sodium Bicarbonate Tab 325 MG TAB PO SCH ×3 (08:22→21:28)
[2019-08-06] MEDS ORDERED: hydrALAZINE 25 MG TAB PO SCH (09:00)
--- NOTE | 2019-08-06 09:21 | PRG ---
DATE OF SERVICE: 08/06/2019 SUBJECTIVE: Ms. Dang is a 59-year-old female, admitted for worsening renal dysfunction. Empiric volume repletion was done over the last several days, but there is no improvement. I did discuss dialysis yesterday and again I rediscussed this with the patient. We will do an options visit as to what type of dialysis modality she wants to be. When she decides, we will consult Surgery for placement of dialysis access. No other complaints. No chest pain or shortness of breath. OBJECTIVE: VITAL SIGNS: Blood pressure is 173/85, heart rate 75, respiratory rate 16, temperature 98.3, and pulse ox 99%. GENERAL: Awake, alert, comfortable, not in distress. SKIN: Adequate turgor. HEENT: Pinkish conjunctivae. Anicteric sclerae. NECK: No neck mass. No carotid bruits. No JVD. CHEST: No deformities. LUNGS: Clear breath sounds. HEART: Normal sinus rhythm. No murmur. No gallops. No rubs. ABDOMEN: Globular, soft, and nontender. No masses. EXTREMITIES: No edema. No deformities. MEDICATIONS: Medications of August 06, 2019, reviewed. LABORATORY DATA: Laboratories of August 06, 2019; white count 8.1, hemoglobin 9. Sodium 135, potassium 4, chloride 113, carbon dioxide 16, BUN 39, creatinine 4.52, glucose 266, and calcium 8.3. ASSESSMENT AND PLAN: 1. Chronic renal failure - unimproved. This is in spite of volume repletion. The patient has been counseled regarding initiation of dialysis. An options visit will be done today and she will finalize the decision as to what type of dialysis modality she would like to go to. Continue current management. 2. Metabolic acidosis, currently on sodium bicarbonate. 3. Renal osteodystrophy, currently on calcitriol. 4. Borderline anemia. We will continue to observe. We will recheck basic metabolic panel and CBC again in a.m. Job ID: [id number]
[2019-08-06 13:08] LABS: ANA Symphony (Qualitative) Negative (Negative); ANA Symphony (Quantitative) 0.1 Ratio (< 0.7 Negative); dsDNA IgG Antibody Less than 0.5 IU/mL (<10 Negative)
--- NOTE | 2019-08-06 16:56 | ULT ---
BILATERAL UPPER EXTREMITY VEIN MAPPING: Clinical history: AV fistula Right upper extremity brachial artery 3.6 mm Radial artery 2.2 mm Ulnar artery 1.8 mm Cephalic size 2.7 2.3, 1.8 3.0, 1.5 1.1, 1.1 Basilic size 5.9 4.7, 3.9 4.9, 1.0 0.4, 0.7 Left upper extremity Brachial artery 4.0 cm Radial artery 1.9 cm Ulnar artery 2.2 cm Cephalic size 0.8, 0.9, 0.9, 1.5, 1.3 0.8, 1.1 Basilic size 3.1, 3.0, 2.4, 2.8, 1.1, 1.1, 1.3 Incidental note of hypoechoic complex appearing focus of the right base of neck/upper chest near the shoulder girdle, slightly greater than 5 cm in diameter. IMPRESSION: Bilateral upper extremity vein mapping, as above Complex appearing fluid collection, approximating the right shoulder girdle. Recommend clinical corre lation. Transcribed Date/Time: 08/06/2019 6:01 PM
[2019-08-06] MEDS ORDERED: CEFAZOLIN 2 GM in Premix Bag 1 BAG IVPB SCH (17:00)
--- NOTE | 2019-08-06 17:49 | PDOC.HOSPP ---
- Subjective Encounter Date: 08/06/19 Encounter Time: 17:47 Subjective: CC: JHOANA Patient states that she has no nausea, vomiting. Just fatigue. Had discussion about dialysis and explained PD versus HD options. Patient states three of her daughters are all willing to donate kidney and she is interested in kidney transplant. They are all the same blood type. Explained that transplant process takes a while and she would need something in the interim. Dr. Navas unfortunately not available today. - Objective Vital Signs & Weight: Vital Signs (12 hours) Temp Pulse Resp BP BP BP BP 08/06/19 15:35 97.8 F 75 16 166/83 H 163/79 H 165/77 H 08/06/19 11:00 98.2 F 76 20 182/88 H 08/06/19 07:45 98.3 F 75 16 173/85 H Pulse Ox 08/06/19 15:35 99 08/06/19 11:00 99 08/06/19 07:45 99 Weight Admit Weight 159 lb Weight 163 lb 3 oz I&O: 08/05/19 08/06/19 08/07/19 06:59 06:59 06:59 Intake Total 3880 1430 Output Total 3080 2300 Balance 800 -870 Result Diagrams: 08/06/19 04:02 08/06/19 04:02 Additional Labs: Accuchecks 08/06/19 08/06/19 08/05/19 10:40 07:47 20:36 POC Glucose 262 H 310 H 198 H Hospitalist ROS - Review of Systems Constitutional: denies: fever, chills Cardiovascular: denies: chest pain - Medication Medications: Active Medications Generic Name Dose Route Start Last Admin Trade Name Freq PRN Reason Stop Dose Admin Acetaminophen 650 mg 08/02/19 16:10 08/04/19 02:41 Tylenol PO 650 mg Q4H PRN Administration Headache/Fever/Mild Pain (1-3) Amlodipine Besylate 10 mg 08/03/19 09:00 08/06/19 08:21 Norvasc PO 10 mg DAILY JULIA Administration Calcitriol 0.25 mcg 08/05/19 09:00 08/06/19 08:21 Rocaltrol PO 0.25 mcg DAILY JULIA Administration Clonidine 0.1 mg 08/03/19 09:00 08/06/19 08:21 Catapres PO 0.1 mg BID JULIA Administration Famotidine 20 mg 08/03/19 09:00 08/06/19 08:20 Pepcid SLOW IVP Not Given DAILY JULIA Hydralazine HCl 10 mg 08/03/19 08:36 08/05/19 01:21 Apresoline SLOW IVP 10 mg Q4H PRN Administration Hypertension Hydralazine HCl 25 mg 08/06/19 09:00 08/06/19 08:21 Apresoline PO 25 mg DAILY JULIA Administration Insulin Glargine 15 units/ 0.15 mls @ 0 mls/hr 08/05/19 21:00 08/05/19 20:30 Miscellaneous Medication SC 0.15 mls HS JULIA Administration Insulin Human Lispro 0 units 08/02/19 16:05 08/06/19 11:41 Humalog SC 4 unit .MILD SLIDING SCALE PRN Administration Mild Correctional Scale Insulin Human Lispro 0 units 08/02/19 16:05 08/04/19 21:42 Humalog SC 4 unit .BEDTIME SLIDING SC PRN Administration Bedtime Correctional Scale Levothyroxine Sodium 50 mcg 08/04/19 06:00 08/06/19 04:06 Synthroid PO 50 mcg 0600 JULIA Administration Ondansetron HCl 4 mg 08/02/19 16:10 08/03/19 08:45 Zofran IVP 4 mg Q6H PRN Administration Nausea/Vomiting Pantoprazole Sodium 40 mg 08/03/19 09:00 08/06/19 08:22 Protonix PO 40 mg DAILY JULIA Administration Sodium Bicarbonate 650 mg 08/04/19 21:00 08/06/19 15:14 Bicarbonate, Sodium PO 650 mg TID JULIA Administration - Exam General Appearance: NAD, awake alert Eye: PERRL, anicteric sclera ENT: normocephalic atraumatic, no oropharyngeal lesions Neck: supple, symmetric, no JVD, no thyromegaly Heart: RRR, no murmur, no gallops, no rubs Respiratory: CTAB, no wheezes, no rales, no ronchi Gastrointestinal: soft, non-tender, non-distended, normal bowel sounds, no palpable masses Extremities: no cyanosis, no clubbing, no edema Skin: normal turgor, no lesions, no rashes Hosp A/P - Plan Renal ultrasound: small left renal cyst This is a 59 year old female with past medical history of type II diabetes, hypothyroidism wh opresneted with Acute Kidney Injury -creatinine worsened. Patient with no IV access currently, will monitor without but will need IV access. Possibly central line if anticipating dialysis, will discuss with Dr. Calixto - hepatitis panel normal. NOEMÍ negative - urine protein > 600 Hypokalemia - potassium 3.3, give 20 meq and recheck Hypertensive urgency - continue on clonidine and amlodipine. Started hydralazine 25 mg daily - hold IV fluids for now to see if it improves BP Acute gastroenteritis - had WBC of 18 on admission with n/v/diarrhea, now resolved Hyponatremia - possibly from vomiting/diarrhea - sodium 134, will monitor Hypothyroidism - continue levothyroxine - TSH was elevated at 24 on admission Metabolic acidosis - bicarb of 15, on sodium bicarbonate TID Type II diabetes - continue levemir 15 units qhs Disposition: pending improvement in creatinine Code status: full code
--- NOTE | 2019-08-06 18:57 | CON ---
DATE OF CONSULTATION: HISTORY OF PRESENT ILLNESS: Beth Dang is a 59-year-old female, who lives with her mother. She has been from her for 4 years. She is an insulin-dependent diabetic, takes insulin twice a day, oral hypoglycemics and has hypertension. She was admitted to the hospital four days ago and I was called today to establish dialysis access on August 06. The patient was not n.p.o. I have talked to Dr. Calixto and plan is to place a temporary dialysis catheter as cuffed tunneled catheter cannot be placed over the next few days as I will be out of town. The other surgeons who do this will be out of town. She has insurance product that demands that she goes elsewhere and this could not be established as an outpatient. Ultrasound vein mapping performed today reveals cephalic vein right 2.7, 2.3, and 1.8 mm antecubital and 3 mm antecubital and 1.5 mm smaller distal forearm. Basilic vein 5.9, 4.7, 3.9, and 4.9 mm right arm. Left upper extremity cephalic vein 0.8, 0.9, 0.9, and 1.5 mm. Basilic vein small. Plan is to place a right groin Trialysis catheter, save her veins for dialysis access and place a right arm fistula hemodialysis catheter next week. She understands risks and benefits and consents. ALLERGIES: NONE. SOCIAL HISTORY: Tobacco, none. Alcohol, none. MEDICATIONS: At home; 1. Insulin. 2. Protonix. 3. Amlodipine. 4. Levothyroxine. PAST SURGICAL HISTORY: Partial hysterectomy and laparoscopic cholecystectomy. PAST MEDICAL HISTORY: Diabetes mellitus, insulin-dependent; obesity. REVIEW OF SYSTEMS: Noncontributory. PHYSICAL EXAMINATION: VITAL SIGNS: 5 feet 8 inches, 163 pounds, and 24 BMI. 97.8, 75, and 166/83. HEAD, EARS, EYES, NOSE, AND THROAT: Unremarkable. LUNGS: Clear to auscultation. CARDIAC: Regular rate and rhythm without murmur or gallop. ABDOMEN: Soft and nontender. EXTREMITIES: Unremarkable. Palpable radial pulses. ASSESSMENT AND PLAN: End-stage renal disease. PLAN: Placement of hemodialysis catheter temporary groin to initiate dialysis. She will stay in the hospital and plan placement of hemodialysis catheter central line, possible right arm fistula next week. She understands risks and benefits, consents. Job ID: [id number]
[2019-08-06] MEDS: Acetaminophen 325 MG TAB PO PRN (21:28)
[2019-08-06] MEDS: Insulin Glargine 15 UNITS in Pre-Filled Syringe 1 EACH SC SCH (21:29)
[2019-08-07] MEDS: Levothyroxine Sodium 50 MCG TAB PO SCH (04:53)
[2019-08-07 05:34] LABS: #Eosinphils 0.5 thou/uL (0.0-0.7); #Lymphocytes 1.8 thou/uL (1.20-3.40); #Monocytes 0.6 thou/uL (0.11-0.59); #Neutrophils 4.8 thou/uL (1.40-6.50); %Basophils 0.1 % (0.0-1.0); %Eosinophils 6.3 % (0.0-10.0); %Lymphocytes 23.3 % (21.0-51.0); %Monocytes 8.3 % (0.0-10.0); Hemoglobin 8.9 g/dL (12.0-16.0); Mean Corpuscular HGB CONC 34.1 g/dL (32.0-36.0); Mean Corpuscular Hemoglobin 31.1 pg (27.0-31.0); Mean Corpuscular Volume 91.2 fL (78.0-98.0); Mean Platelet Volume 8.7 fL (7.4-10.4); Platelet Count 188 thou/uL (130-400); RBC Distribution Width 12.8 % (11.5-14.5); Red Blood Cell (RBC) Count 2.86 mill/uL (4.20-5.40); White Blood Cell (WBC) Count 7.8 thou/uL (4.8-10.8)
[2019-08-07 05:38] LABS: Anion Gap 10 mmol/L (10-20); BUN (Urea Nitrogen) 38 mg/dL (9.8-20.1); Calc. Creatinine Clearance 19 mL/min (70-130); Calcium 8.7 mg/dL (7.8-10.44); Carbon Dioxide 19 mmol/L (22-29); Chloride 111 mmol/L (98-107); Estimated GFR-MDRD 11; Glucose 104 mg/dL (70-105); Potassium 4.1 mmol/L (3.5-5.1); Sodium 136 mmol/L (136-145)
[2019-08-07] MEDS ORDERED: Heparin 10,000 UNITS/1 ML VIAL ONE (07:31)
--- NOTE | 2019-08-07 09:11 | PRG ---
DATE OF SERVICE: 08/07/2019 SUBJECTIVE: Ms. Dang is a 59-year-old female, who was admitted for an acute kidney injury on top of her chronic renal failure. She is undergoing hemodialysis due to the unimproved renal function in spite of IV hydration. A temporary femoral dialysis catheter was placed by Dr. Navas and this coming Tuesday, she will have a cuffed hemodialysis catheter with AV fistula. No other complaints today. OBJECTIVE: VITAL SIGNS: Blood pressure is 174/77, heart rate 69, respiratory rate 16, temperature 97.9, pulse ox 97% on room air. GENERAL: Awake, alert, comfortable, not in distress. SKIN: Adequate turgor. HEENT: The patient has a slightly pale conjunctivae. Anicteric sclerae. NECK: No neck mass. No carotid bruits. No JVD. CHEST: No deformities. LUNGS: Clear breath sounds. HEART: Normal sinus rhythm. No murmur. No gallops. No rubs. ABDOMEN: Globular, soft, nontender. No masses. EXTREMITIES: Trace edema. MEDICATIONS: Medications of August 07, 2019, reviewed. LABORATORY DATA: Laboratories of August 07, 2019; white count 7.8, hemoglobin 8.9. Hepatitis B and C negative. NOEMÍ is negative. Sodium 136, potassium 4.1, chloride 111, carbon dioxide 19, BUN 30, creatinine 4.26, calcium 8.7. ASSESSMENT AND PLAN: 1. Chronic renal failure/end-stage renal disease - most likely the patient has diabetic nephropathy. NOEMÍ was negative. In addition, hepatitis B and C negative. We are awaiting for ANCA and electrophoresis results. Continue supportive care. Continue daily dialysis. She has a temporary dialysis catheter. Permanent placement - dialysis access will be done on Tuesday. 2. Hypertension, adjust blood pressure medications. 3. Anemia, start Epogen 7500 units subcu every week. Iron supplementation will also be started. Job ID: [id number]
[2019-08-07 10:11] LABS: Albumin 2.3 g/dL (2.9-4.4); Alpha 1 0.1 g/dL (0.0-0.4); Alpha 2 0.8 g/dL (0.4-1.0); Beta 0.8 g/dL (0.7-1.3); Gamma 0.7 g/dL (0.4-1.8); Globulin, Total 2.4 g/dL (2.2-3.9); M-Spike Not Observed g/dL (Not Observed)
[2019-08-07] MEDS: Famotidine/PF 20 mg/2ml Vial SLOW IVP SCH (10:14)
[2019-08-07] MEDS: Amlodipine 10 MG TAB PO SCH (10:15)
[2019-08-07] MEDS: hydrALAZINE 25 MG TAB PO SCH ×3 (10:16→21:26)
[2019-08-07] MEDS: cloNIDine 0.1 MG TAB PO SCH ×2 (10:16→21:25)
[2019-08-07] MEDS: Calcitriol 0.25 MCG CAP PO SCH (10:16)
[2019-08-07] MEDS: Sodium Bicarbonate Tab 325 MG TAB PO SCH ×3 (10:17→21:29)
[2019-08-07] MEDS: EPOETIN ALFA-EPBX (ESRD) 4,000 UNIT/ML VIAL SC SCH (10:48)
--- NOTE | 2019-08-07 11:31 | PDOC.HOSPP ---
- Subjective Encounter Date: 08/07/19 Encounter Time: 11:29 Subjective: The patient is doing well, decided on HD. She has no nausea or vomiting. She had right groin catheter placed today and underwent dialysis for an hour today. Plan is to do next dialysis on and then AV fistula placement on Tuesday. Patient is interested in being transferred to [place] for transplant surgery evaluation after that. She will need cardiac workup there. - Objective Vital Signs & Weight: Vital Signs (12 hours) Temp Pulse Resp BP Pulse Ox 08/07/19 07:20 97.9 F 69 16 174/77 H 99 08/07/19 04:16 97.5 F L 67 16 157/86 H 100 08/06/19 23:47 98.6 F 71 16 145/69 H 99 Weight Admit Weight 159 lb Weight 178 lb 9.6 oz I&O: 08/06/19 08/07/19 08/08/19 06:59 06:59 06:59 Intake Total 1430 1660 Output Total 2300 1750 Balance -870 -90 Result Diagrams: 08/07/19 05:00 08/07/19 05:00 Additional Labs: Accuchecks 08/07/19 08/07/19 08/06/19 11:00 05:46 20:35 POC Glucose 244 H 106 256 H 08/06/19 17:40 POC Glucose 241 H Hospitalist ROS - Review of Systems Constitutional: denies: fever, chills Respiratory: denies: cough, dry Cardiovascular: denies: chest pain, palpitations - Medication Medications: Active Medications Generic Name Dose Route Start Last Admin Trade Name Betty PRN Reason Stop Dose Admin Acetaminophen 650 mg 08/02/19 16:10 08/06/19 21:28 Tylenol PO 650 mg Q4H PRN Administration Headache/Fever/Mild Pain (1-3) Amlodipine Besylate 10 mg 08/03/19 09:00 08/07/19 10:15 Norvasc PO 10 mg DAILY JULIA Administration Calcitriol 0.25 mcg 08/05/19 09:00 08/07/19 10:16 Rocaltrol PO 0.25 mcg DAILY JULIA Administration Clonidine 0.1 mg 08/03/19 09:00 08/07/19 10:16 Catapres PO 0.1 mg BID JULIA Administration Epoetin Ezequiel-epbx 7,500 unit 08/07/19 09:00 08/07/19 10:48 Retacrit SC 7,500 unit Q7D JULIA Administration Famotidine 20 mg 08/03/19 09:00 08/07/19 10:14 Pepcid SLOW IVP Not Given DAILY JULIA Heparin Sodium (Porcine) 500 units 08/07/19 09:00 08/07/19 10:16 Heparin Lock Flush 100 Units/Ml IVF 500 unit Q12HR JULIA Administration Heparin Sodium (Porcine) 500 units 08/07/19 04:41 08/07/19 04:57 Heparin Lock Flush 100 Units/Ml IVF 500 unit PRN PRN Administration Heparin Flush Hydralazine HCl 10 mg 08/03/19 08:36 08/05/19 01:21 Apresoline SLOW IVP 10 mg Q4H PRN Administration Hypertension Hydralazine HCl 25 mg 08/07/19 09:00 08/07/19 10:16 Apresoline PO 25 mg TID JULIA Administration Insulin Glargine 15 units/ 0.15 mls @ 0 mls/hr 08/05/19 21:00 08/06/19 21:29 Miscellaneous Medication SC 0.15 mls HS JULIA Administration Insulin Human Lispro 0 units 08/02/19 16:05 08/06/19 18:27 Humalog SC 3 unit .MILD SLIDING SCALE PRN Administration Mild Correctional Scale Insulin Human Lispro 0 units 08/02/19 16:05 08/06/19 21:29 Humalog SC 3 unit .BEDTIME SLIDING SC PRN Administration Bedtime Correctional Scale Levothyroxine Sodium 50 mcg 08/04/19 06:00 08/07/19 04:53 Synthroid PO 50 mcg 0600 JULIA Administration Ondansetron HCl 4 mg 08/02/19 16:10 08/03/19 08:45 Zofran IVP 4 mg Q6H PRN Administration Nausea/Vomiting Pantoprazole Sodium 40 mg 08/03/19 09:00 08/07/19 10:17 Protonix PO 40 mg DAILY JULIA Administration Sodium Bicarbonate 650 mg 08/04/19 21:00 08/07/19 10:17 Bicarbonate, Sodium PO 650 mg TID JULIA Administration - Exam General Appearance: NAD, awake alert Eye: PERRL, anicteric sclera ENT: normocephalic atraumatic, no oropharyngeal lesions Neck: supple, symmetric, no JVD, no thyromegaly Heart: RRR, no murmur, no gallops, no rubs Respiratory: CTAB, no wheezes, no rales, no ronchi Gastrointestinal: soft, non-tender, non-distended, normal bowel sounds Extremities: no cyanosis, no clubbing, no edema Hosp A/P - Plan Renal ultrasound: small left renal cyst This is a 59 year old female with past medical history of type II diabetes, hypothyroidism wh opresneted with Acute Kidney Injury -creatinine improved. Started hemodialysis today, plan for AV fistula on Tuesday. Afterwards patient would like to be transferred to get renal transplant SARI - hepatitis panel normal. NOEMÍ negative, ANCA pending, electropheresis results pending - urine protein > 600 Anemia - patient will be started on EPO 7500 SC q week per Dr. Calixto - also starting iron supplementation Hypertension - continue on clonidine and amlodipine. Started hydralazine 25 mg daily 08/06, increase to TID per Dr. Calixto. BP 140-170 Acute gastroenteritis - had WBC of 18 on admission with n/v/diarrhea, now resolved Hyponatremia -resolved Hypothyroidism - continue levothyroxine - TSH was elevated at 24 on admission Metabolic acidosis - bicarb of 15, on sodium bicarbonate TID Type II diabetes - continue levemir 15 units qhs - blood sugars controlled Disposition: needs dialysis with plan for AV fistula on Tuesday by Dr. Navas Code status: full code
[2019-08-07] MEDS: HumaLOG 300 UNITS/3 ML VIAL SC PRN ×2 (11:58→17:38)
--- NOTE | 2019-08-07 14:56 | RAD ---
Exam: Chest one view HISTORY:HD setup Comparison: 09/29/2017 FINDINGS: Lungs: No masses or consolidation. Cardiac silhouette:Accentuated by portable technique Pulmonary vessels: Normal Pleural Spaces: Clear Pneumothorax: None Osseous abnormalities: None of acuity. IMPRESSION: No focal consolidation.
[2019-08-07] MEDS ORDERED: Tuberculin PPD 0.1 ML VIAL I-DERMAL SCH (15:15)
[2019-08-07 15:31] LABS: HBSAB Concentration 2.15 mIU/mL; HBSAg Index 0.13 S/CO (0-0.99); Hep B Core Total Ab Non-Reactive (NonReactive); Hep B Surf AB Non-Reactive (NonReactive); Hep B Surf Ag Non-Reactive S/CO (NonReactive); Hep C IgG Ab Non-Reactive (NonReactive); Hep C Index 0.08 S/CO (0-0.79)
[2019-08-07] MEDS: Ferrous Sulfate 325 MG TAB PO SCH (17:38)
[2019-08-07] MEDS: Insulin Glargine 15 UNITS in Pre-Filled Syringe 1 EACH SC SCH (21:26)
[2019-08-08] MEDS: Levothyroxine Sodium 50 MCG TAB PO SCH (07:05)
[2019-08-08 08:00] LABS: %Neutrophils 63.2 % (42.0-75.0); Mean Corpuscular HGB CONC 34.2 g/dL (32.0-36.0); Mean Corpuscular Volume 90.7 fL (78.0-98.0); Platelet Count 194 thou/uL (130-400); RBC Distribution Width 12.9 % (11.5-14.5); Red Blood Cell (RBC) Count 3.22 mill/uL (4.20-5.40); White Blood Cell (WBC) Count 9.9 thou/uL (4.8-10.8)
[2019-08-08 08:01] LABS: #Basophils 0.1 thou/uL (0.0-0.2); #Eosinphils 0.5 thou/uL (0.0-0.7); #Lymphocytes 2.3 thou/uL (1.20-3.40); #Monocytes 0.7 thou/uL (0.11-0.59); #Neutrophils 6.3 thou/uL (1.40-6.50); %Basophils 0.7 % (0.0-1.0); %Eosinophils 5.5 % (0.0-10.0); %Lymphocytes 23.5 % (21.0-51.0); %Monocytes 7.1 % (0.0-10.0)
[2019-08-08 08:15] LABS: Anion Gap 10 mmol/L (10-20); BUN (Urea Nitrogen) 33 mg/dL (9.8-20.1); Calc. Creatinine Clearance 17 mL/min (70-130); Calcium 9.3 mg/dL (7.8-10.44); Carbon Dioxide 23 mmol/L (22-29); Chloride 110 mmol/L (98-107); Estimated GFR-MDRD 11; Glucose 103 mg/dL (70-105); Potassium 4.3 mmol/L (3.5-5.1); Sodium 139 mmol/L (136-145)
--- NOTE | 2019-08-08 08:36 | PRG ---
DATE OF SERVICE: 08/08/2019 SUBJECTIVE: Ms. Dang is a 59-year-old female, who was seen for her acute kidney injury on top of her chronic renal failure. Empiric volume repletion was given in attempt to improve renal function, but this remained unimproved. Due to the low GFR, it was decided to initiate hemodialysis. She underwent her first hemodialysis, it is today for 1 hour. She tolerated said treatment. Our plan is in the next few days to do daily dialysis with fluid removal only as tolerated. The patient voices no new complaints. No chest pain or shortness of breath. OBJECTIVE: VITAL SIGNS: Blood pressure 180/87, heart rate 73, respiratory rate 16, temperature 98.3, and pulse ox 99%. GENERAL: Noted to be awake, alert, comfortable, not in distress. SKIN: Adequate turgor. HEENT: She has pinkish conjunctivae. Anicteric sclerae. NECK: No neck mass. No carotid bruits. No JVD. CHEST: No deformities. LUNGS: Clear breath sounds. HEART: Normal sinus rhythm. No murmur. No gallops. No rubs. ABDOMEN: Globular, soft, and nontender. No masses. EXTREMITIES: No edema. No deformities. MEDICATIONS: Medication of August 08, 2019, reviewed. LABORATORY DATA: Laboratories of August 08, 2019; white count 9.9, hemoglobin 10. Sodium 139, potassium 4.3, chloride 110, carbon dioxide 23, BUN 33, creatinine 4.07, and calcium 9.3. ASSESSMENT AND PLAN: 1. Chronic renal failure/end-stage renal disease - secondary to diabetic nephropathy. So far serologies have been negative. NOEMÍ screening was said to have been normal. In addition, on albumin immunofixation was said to be on the low end at 2.3. Furthermore, hepatitis B and C was negative with this patient. We are still awaiting ANCA. The end-stage renal disease is most likely from diabetic nephropathy. 2. Hypertension. Recently, hydralazine 25 mg tablet t.i.d. was started. She will continue with the current BP medications as well as with amlodipine. Overall, agree with current management. 3. Anemia, on weekly Epogen. Recheck basic metabolic panel and CBC in a.m. Job ID: [id number]
[2019-08-08] MEDS: cloNIDine 0.1 MG TAB PO SCH ×2 (08:41→20:33)
[2019-08-08] MEDS: Ferrous Sulfate 325 MG TAB PO SCH ×2 (08:41→17:29)
[2019-08-08] MEDS: Sodium Bicarbonate Tab 325 MG TAB PO SCH ×3 (08:41→20:33)
[2019-08-08] MEDS: Calcitriol 0.25 MCG CAP PO SCH (08:41)
[2019-08-08] MEDS: Famotidine/PF 20 mg/2ml Vial SLOW IVP SCH (08:41)
[2019-08-08] MEDS: Amlodipine 10 MG TAB PO SCH (08:41)
[2019-08-08] MEDS: hydrALAZINE 25 MG TAB PO SCH ×3 (08:41→20:33)
[2019-08-08] MEDS: HumaLOG 300 UNITS/3 ML VIAL SC PRN ×2 (12:35→17:28)
--- NOTE | 2019-08-08 16:06 | PDOC.HOSPP ---
- Subjective Encounter Date: 08/08/19 Encounter Time: 03:30 Subjective: CC: acute renal failure The patient has no complaints. She is waiting for her procedure on Tuesday. No nausea or vomiting. Family is coming by today to celebrate [place] with her. - Objective Vital Signs & Weight: Vital Signs (12 hours) Temp Pulse Resp BP Pulse Ox 08/08/19 12:31 98.0 F 69 15 128/72 98 08/08/19 08:41 99 08/08/19 07:40 98.3 F 73 16 180/87 H 99 Weight Admit Weight 159 lb Weight 153 lb 6.4 oz I&O: 08/07/19 08/08/19 08/09/19 06:59 06:59 06:59 Intake Total 1660 1300 Output Total 1750 2600 Balance -90 -1300 Result Diagrams: 08/08/19 07:54 08/08/19 07:54 Additional Labs: Accuchecks 08/08/19 08/07/19 08/07/19 10:55 20:50 17:24 POC Glucose 242 H 197 H 198 H Hospitalist ROS - Review of Systems Constitutional: denies: fever, chills ENT: denies: ear pain, ear discharge - Medication Medications: Active Medications Generic Name Dose Route Start Last Admin Trade Name Freq PRN Reason Stop Dose Admin Acetaminophen 650 mg 08/02/19 16:10 08/06/19 21:28 Tylenol PO 650 mg Q4H PRN Administration Headache/Fever/Mild Pain (1-3) Amlodipine Besylate 10 mg 08/03/19 09:00 08/08/19 08:41 Norvasc PO 10 mg DAILY JULIA Administration Calcitriol 0.25 mcg 08/05/19 09:00 08/08/19 08:41 Rocaltrol PO 0.25 mcg DAILY JULIA Administration Clonidine 0.1 mg 08/03/19 09:00 08/08/19 08:41 Catapres PO 0.1 mg BID JULIA Administration Epoetin Ezequiel-epbx 7,500 unit 08/07/19 09:00 08/07/19 10:48 Retacrit SC 7,500 unit Q7D JULIA Administration Famotidine 20 mg 08/03/19 09:00 08/08/19 08:41 Pepcid SLOW IVP 20 mg DAILY JULIA Administration Ferrous Sulfate 325 mg 08/07/19 17:00 08/08/19 08:41 Feosol PO 325 mg BID-WM JULIA Administration Heparin Sodium (Porcine) 500 units 08/07/19 09:00 08/08/19 08:42 Heparin Lock Flush 100 Units/Ml IVF 500 ml Q12HR JULIA Administration Heparin Sodium (Porcine) 500 units 08/07/19 04:41 08/07/19 04:57 Heparin Lock Flush 100 Units/Ml IVF 500 unit PRN PRN Administration Heparin Flush Hydralazine HCl 10 mg 08/03/19 08:36 08/05/19 01:21 Apresoline SLOW IVP 10 mg Q4H PRN Administration Hypertension Hydralazine HCl 25 mg 08/07/19 09:00 08/08/19 14:45 Apresoline PO 25 mg TID JULIA Administration Insulin Glargine 15 units/ 0.15 mls @ 0 mls/hr 08/05/19 21:00 08/07/19 21:26 Miscellaneous Medication SC 0.15 mls HS JULIA Administration Insulin Human Lispro 0 units 08/02/19 16:05 08/08/19 12:35 Humalog SC 3 unit .MILD SLIDING SCALE PRN Administration Mild Correctional Scale Insulin Human Lispro 0 units 08/02/19 16:05 08/06/19 21:29 Humalog SC 3 unit .BEDTIME SLIDING SC PRN Administration Bedtime Correctional Scale Levothyroxine Sodium 50 mcg 08/04/19 06:00 08/08/19 07:05 Synthroid PO 50 mcg 0600 JULIA Administration Ondansetron HCl 4 mg 08/02/19 16:10 08/03/19 08:45 Zofran IVP 4 mg Q6H PRN Administration Nausea/Vomiting Pantoprazole Sodium 40 mg 08/03/19 09:00 08/08/19 08:42 Protonix PO 40 mg DAILY JULIA Administration Sodium Bicarbonate 650 mg 08/04/19 21:00 08/08/19 14:45 Bicarbonate, Sodium PO 650 mg TID JULIA Administration - Exam General Appearance: NAD, awake alert ENT: normocephalic atraumatic, no oropharyngeal lesions Respiratory: CTAB, no wheezes, no rales, no ronchi Gastrointestinal: non-distended Extremities: no edema Neurological: cranial nerve grossly intact, no focal deficits Hosp A/P - Plan Renal ultrasound: small left renal cyst This is a 59 year old female with past medical history of type II diabetes, hypothyroidism wh opresneted with Acute Kidney Injury -creatinine improved. Started hemodialysis today, plan for AV fistula on Tuesday. Afterwards patient would like to be transferred to get renal transplant SARI - hepatitis panel normal. NOEMÍ negative, ANCA pending, electropheresis results pending - urine protein > 600 Anemia -continue EPO 7500 SC q week per Dr. Calixto -continue iron supplementation Hypertension - continue on clonidine and amlodipine. Continue hydralazin 25 mg tid Acute gastroenteritis - had WBC of 18 on admission with n/v/diarrhea, now resolved Hyponatremia -resolved Hypothyroidism - continue levothyroxine - TSH was elevated at 24 on admission Metabolic acidosis - bicarb of 15, on sodium bicarbonate TID Type II diabetes - continue levemir 15 units qhs - blood sugars controlled Disposition: needs dialysis with plan for AV fistula on Tuesday by Dr. Navas Code status: full code
[2019-08-08] MEDS: Insulin Glargine 15 UNITS in Pre-Filled Syringe 1 EACH SC SCH (20:37)
[2019-08-09 04:27] LABS: #Basophils 0.1 thou/uL (0.0-0.2); #Eosinphils 0.5 thou/uL (0.0-0.7); #Lymphocytes 2.1 thou/uL (1.20-3.40); #Monocytes 0.8 thou/uL (0.11-0.59); #Neutrophils 5.5 thou/uL (1.40-6.50); %Basophils 0.8 % (0.0-1.0); %Eosinophils 5.2 % (0.0-10.0); %Lymphocytes 23.2 % (21.0-51.0); %Monocytes 9.2 % (0.0-10.0); %Neutrophils 61.6 % (42.0-75.0); Hemoglobin 8.6 g/dL (12.0-16.0); Mean Corpuscular HGB CONC 33.8 g/dL (32.0-36.0); Mean Corpuscular Hemoglobin 31.1 pg (27.0-31.0); Mean Corpuscular Volume 92.1 fL (78.0-98.0); Mean Platelet Volume 8.8 fL (7.4-10.4); Platelet Count 180 thou/uL (130-400); RBC Distribution Width 12.8 % (11.5-14.5); Red Blood Cell (RBC) Count 2.77 mill/uL (4.20-5.40)
[2019-08-09 04:51] LABS: Anion Gap 10 mmol/L (10-20); BUN (Urea Nitrogen) 37 mg/dL (9.8-20.1); Calc. Creatinine Clearance 15 mL/min (70-130); Calcium 8.8 mg/dL (7.8-10.44); Carbon Dioxide 22 mmol/L (22-29); Chloride 108 mmol/L (98-107); Estimated GFR-MDRD 10; Glucose 158 mg/dL (70-105); Potassium 4.2 mmol/L (3.5-5.1); Sodium 136 mmol/L (136-145)
[2019-08-09] MEDS: Levothyroxine Sodium 50 MCG TAB PO SCH (05:25)
--- NOTE | 2019-08-09 08:20 | OP ---
DATE OF PROCEDURE: 08/06/2019 PREOPERATIVE DIAGNOSIS: End-stage renal disease, in need of dialysis access. POSTOPERATIVE DIAGNOSIS: End-stage renal disease, in need of dialysis access. PROCEDURE PERFORMED: Right femoral vein Trialysis catheter. ANESTHESIA: 1% Xylocaine. DESCRIPTION OF PROCEDURE: With the patient's bedside, groin was clipped of hair, prepared with ChloraPrep and draped in routine fashion. 1% Xylocaine was infiltrated in the skin and subcutaneous tissue about the operative site. Trocar catheter was cannulated in the femoral vein, J-wire threaded, trocar catheter removed. Seldinger technique used to place a Trialysis catheter, securing it with 3-0 nylon and sterile dressing applied. Each port aspirated, blood flushed with heparinized saline solution. The patient tolerated the procedure well. Job ID: [id number]
--- NOTE | 2019-08-09 08:57 | PRG ---
DATE OF SERVICE: SUBJECTIVE: Ms. Dang is a 59-year-old female, who was admitted for an acute kidney injury/chronic renal failure. Initial empiric volume repletion did not improve renal function. For this reason, due to the significant decrease in GFR , she was initiated on dialysis. She is now on her second day. They were doing a 2-hour hemodialysis. She voices no new complaints. No chest pain or shortness of breath. OBJECTIVE: VITAL SIGNS: Blood pressure 155/76, heart rate 68, respiratory rate 15, temperature 98.7, and pulse ox 99%. GENERAL: Awake, alert, comfortable, not in distress. SKIN: Adequate turgor. HEENT: Slightly pale conjunctivae. Anicteric sclerae. No neck mass. No carotid bruits. No JVD. CHEST: No deformities. LUNGS: Clear breath sounds. No wheezing. No crackles. HEART: Normal sinus rhythm. No murmurs. No gallops. No rubs. ABDOMEN: Globular, soft, and nontender. No masses. EXTREMITIES: No edema. No deformities. MEDICATIONS: Medications of August 09, 2019, reviewed. LABORATORY DATA: August 09, 2019; white count 9, hemoglobin 8.6, sodium 136, potassium 4.2, chloride 108, carbon dioxide 22, BUN 37, creatinine 4.45, GFR 10 mL/min, glucose 158, and calcium 8.8. Hepatitis B and C were negative. NOEMÍ is negative. Total protein FARIHA, it is decreased. ANCA is still pending. ASSESSMENT AND PLAN: 1. Chronic renal failure/end-stage renal disease - this is most likely from diabetic nephropathy. Serologies were negative. We are awaiting for the ANCA, which I suspect will be negative. Continue supportive care. Continue daily dialysis. Fluid removal only as tolerated. 2. Hypertension, stable. Continue current BP medications. 3. Renal osteodystrophy. Continuing calcitriol and phosphate binders as needed. 4. Anemia, on weekly Epogen. Job ID: [id number] [facility]
[2019-08-09] MEDS ORDERED: READ PPD TEST SITE PO SCH (09:00)
[2019-08-09] MEDS: Sodium Bicarbonate Tab 325 MG TAB PO SCH ×3 (10:05→20:36)
[2019-08-09] MEDS: hydrALAZINE 25 MG TAB PO SCH ×3 (10:06→20:37)
[2019-08-09] MEDS: Calcitriol 0.25 MCG CAP PO SCH (10:06)
[2019-08-09] MEDS: Ferrous Sulfate 325 MG TAB PO SCH ×2 (10:06→17:34)
[2019-08-09] MEDS: Famotidine/PF 20 mg/2ml Vial SLOW IVP SCH (10:06)
[2019-08-09] MEDS: Amlodipine 10 MG TAB PO SCH (10:06)
[2019-08-09] MEDS: cloNIDine 0.1 MG TAB PO SCH ×2 (10:06→20:36)
--- NOTE | 2019-08-09 11:06 | PDOC.HOSPP ---
- Subjective Encounter Date: 08/09/19 Encounter Time: 15:00 Subjective: Patient with some fatigue from dialysis. No other complaints. Waiting for fistula surgery on Tuesday. - Objective Vital Signs & Weight: Vital Signs (12 hours) Temp Pulse Resp BP Pulse Ox 08/09/19 07:08 98.7 F 68 15 155/76 H 99 08/09/19 03:28 99.0 F 67 18 135/65 98 Weight Admit Weight 159 lb Weight 153 lb 6.4 oz I&O: 08/08/19 08/09/19 08/10/19 06:59 06:59 06:59 Intake Total 1300 960 Output Total 2600 854 Balance -1300 106 Result Diagrams: 08/09/19 04:05 08/09/19 04:05 Additional Labs: Accuchecks 08/09/19 08/08/19 08/08/19 05:42 21:00 17:01 POC Glucose 144 H 242 H 185 H 08/08/19 08/08/19 10:55 05:39 POC Glucose 242 H 117 H Hospitalist ROS - Review of Systems Constitutional: denies: fever, chills Respiratory: denies: cough, dry, shortness of breath Cardiovascular: denies: chest pain, palpitations, orthopnea Gastrointestinal: denies: nausea, vomiting, abdominal pain - Medication Medications: Active Medications Generic Name Dose Route Start Last Admin Trade Name Freq PRN Reason Stop Dose Admin Acetaminophen 650 mg 08/02/19 16:10 08/06/19 21:28 Tylenol PO 650 mg Q4H PRN Administration Headache/Fever/Mild Pain (1-3) Amlodipine Besylate 10 mg 08/03/19 09:00 08/09/19 10:06 Norvasc PO 10 mg DAILY JULIA Administration Calcitriol 0.25 mcg 08/05/19 09:00 08/09/19 10:06 Rocaltrol PO 0.25 mcg DAILY JULIA Administration Clonidine 0.1 mg 08/03/19 09:00 08/09/19 10:06 Catapres PO 0.1 mg BID JULIA Administration Epoetin Ezequiel-epbx 7,500 unit 08/07/19 09:00 08/07/19 10:48 Retacrit SC 7,500 unit Q7D JULIA Administration Famotidine 20 mg 08/03/19 09:00 08/09/19 10:06 Pepcid SLOW IVP 20 mg DAILY JULIA Administration Ferrous Sulfate 325 mg 08/07/19 17:00 08/09/19 10:06 Feosol PO 325 mg BID-WM JULIA Administration Heparin Sodium (Porcine) 500 units 08/07/19 09:00 08/09/19 10:06 Heparin Lock Flush 100 Units/Ml IVF 500 unit Q12HR JULIA Administration Heparin Sodium (Porcine) 500 units 08/07/19 04:41 08/07/19 04:57 Heparin Lock Flush 100 Units/Ml IVF 500 unit PRN PRN Administration Heparin Flush Hydralazine HCl 10 mg 08/03/19 08:36 08/05/19 01:21 Apresoline SLOW IVP 10 mg Q4H PRN Administration Hypertension Hydralazine HCl 25 mg 08/07/19 09:00 08/09/19 10:06 Apresoline PO 25 mg TID JULIA Administration Insulin Glargine 15 units/ 0.15 mls @ 0 mls/hr 08/05/19 21:00 08/08/19 20:37 Miscellaneous Medication SC 0.15 mls HS JULIA Administration Insulin Human Lispro 0 units 08/02/19 16:05 08/08/19 17:28 Humalog SC 2 unit .MILD SLIDING SCALE PRN Administration Mild Correctional Scale Insulin Human Lispro 0 units 08/02/19 16:05 08/06/19 21:29 Humalog SC 3 unit .BEDTIME SLIDING SC PRN Administration Bedtime Correctional Scale Levothyroxine Sodium 50 mcg 08/04/19 06:00 08/09/19 05:25 Synthroid PO 50 mcg 0600 JULIA Administration Ondansetron HCl 4 mg 08/02/19 16:10 08/03/19 08:45 Zofran IVP 4 mg Q6H PRN Administration Nausea/Vomiting Pantoprazole Sodium 40 mg 08/03/19 09:00 08/09/19 10:06 Protonix PO 40 mg DAILY JULIA Administration Sodium Bicarbonate 650 mg 08/04/19 21:00 08/09/19 10:05 Bicarbonate, Sodium PO 650 mg TID JULIA Administration - Exam General Appearance: NAD Eye: anicteric sclera ENT: moist mucosa Heart: RRR, no murmur, no gallops, no rubs Respiratory: CTAB, no wheezes, no rales, no ronchi Gastrointestinal: soft, non-tender, non-distended, normal bowel sounds Extremities: no edema Psychiatric: normal affect, normal behavior, A&O x 3 Hosp A/P (1) ESRD (end stage renal disease) Code(s): N18.6 - END STAGE RENAL DISEASE Status: Acute Plan: starting dialysis (2) DMII (diabetes mellitus, type 2) Status: Chronic 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 Started hemodialysis this week, plan for cuffed HD cath and AV fistula on Tuesday. Outpatient dialysis being arranged in [place] - hepatitis panel normal. NOEMÍ negative, ANCA pending, electropheresis results pending - urine protein > 600 Anemia -continue EPO 7500 SC q week per Dr. Calixto -continue iron supplementation Hypertension- decent control now - continue on clonidine and amlodipine. Continue hydralazin 25 mg tid Acute gastroenteritis- resolved - had WBC of 18 on admission with n/v/diarrhea, now resolved Hyponatremia -resolved Hypothyroidism - continue levothyroxine - TSH was elevated at 24 on admission Metabolic acidosis- resolved - bicarb of 15, on sodium bicarbonate TID Type II diabetes- insulin dependent - continue levemir 15 units qhs - blood sugars controlled Disposition: needs dialysis with plan for cuffed HD cath and AV fistula on Tuesday by Dr. Navas, arrange OP hemodialysis, then d/c Code status: full code
[2019-08-09] MEDS ORDERED: Heparin 10,000 UNITS/1 ML VIAL ONE (14:51)
[2019-08-09 15:10] LABS: Albumin-Ur 74.9 % (.); Alpha 1 - Ur 2.5 % (.); Alpha 2 - Ur 3.7 % (.); Beta-Ur 7.1 % (.); Gamma-Ur 11.8 % (.); M-Spike,% Not Observed % (Not Observed); Protein, Urine 324.8 mg/dL (Not Estab.)
[2019-08-09 16:09] LABS: Cytoplasmic (C-ANCA) <1:20 titer (Neg:<1:20); Myeloperoxidase AutoAbs <9.0 U/mL (0.0-9.0); Perinuclear (P-ANCA) <1:20 titer (Neg:<1:20); Proteinase-3 AutoAbs Less than 3.5 U/mL (0.0-3.5)
[2019-08-09] MEDS: HumaLOG 300 UNITS/3 ML VIAL SC PRN (17:35)
[2019-08-09] MEDS: Insulin Glargine 15 UNITS in Pre-Filled Syringe 1 EACH SC SCH (20:37)
[2019-08-10] MEDS: Levothyroxine Sodium 50 MCG TAB PO SCH (05:25)
--- NOTE | 2019-08-10 09:08 | PRG ---
DATE OF SERVICE: 08/10/2019 SUBJECTIVE: Ms. Dang is a 59-year-old female, who was admitted for an acute kidney injury/chronic renal failure. Renal function remained unimproved. For that reason, she was initiated on dialysis. She is tolerating said dialysis. She is undergoing a 3-hour hemodialysis today. She voices no new complaints. She is feeling better. No chest pain or shortness of breath. OBJECTIVE: VITAL SIGNS: Blood pressure 130/67, heart rate 76, respiratory rate 16, temperature 98.9, and pulse ox 98%. GENERAL: The patient is awake, alert, comfortable, not in overt distress. SKIN: Adequate turgor. HEENT: She has a slightly pale conjunctivae. Anicteric sclerae. NECK: No neck mass. No carotid bruits. No JVD. CHEST: No deformities. LUNGS: Clear breath sounds. No wheezing. No crackles. HEART: Normal sinus rhythm. No murmur. No gallops. No rubs. ABDOMEN: Globular, soft, and nontender. No masses. EXTREMITIES: No edema. No deformities. MEDICATIONS: Medications of August 10, 2019, reviewed. LABORATORY DATA: Laboratories of August 09, 2019; white count 9, hemoglobin 8.6. Sodium 136, potassium 4.2, chloride 108, carbon dioxide 22, BUN 37, creatinine 4.45, glucose 158, calcium 8.8. ANCA is negative. NOEMÍ is negative. Total protein FARIHA is negative. Hepatitis B and C negative. ASSESSMENT AND PLAN: 1. Nephrotic range proteinuria-most likely related to underlying diabetic nephropathy. Other serologies are negative. 2. Chronic renal failure/end-stage renal disease, continuing daily hemodialysis. Fluid removal as tolerated. 3. Anemia, on iron supplementation and p.r.n. blood transfusion. We have initiated the patient on Epogen at 7500 units subcu every week. 4. Hypertension. Blood pressure stable. Continue current BP medications. Recently hydralazine has been adjusted. 5. Recheck basic metabolic and CBC in a.m. Job ID: [id number]
--- NOTE | 2019-08-10 10:12 | PDOC.HOSPP ---
- Subjective Encounter Date: 08/10/19 Encounter Time: 16:50 Subjective: Patient tolerated 3 hours of dialysis this AM, tired afterward, but getting used to it. No other complaints. She took 50 units Lantus in AM and 15 at night at home previous to coming in. - Objective Vital Signs & Weight: Vital Signs (12 hours) Temp Pulse Resp BP BP Pulse Ox 08/10/19 07:50 98.9 F 76 16 130/67 98 08/10/19 03:51 98.5 F 71 18 141/71 H 99 Weight Admit Weight 159 lb Weight 170 lb 13.732 oz I&O: 08/09/19 08/10/19 08/11/19 06:59 06:59 06:59 Intake Total 960 770 Output Total 854 3000 Balance 106 -4630 Result Diagrams: 08/09/19 04:05 08/09/19 04:05 Additional Labs: Accuchecks 08/10/19 08/09/19 08/09/19 06:20 20:23 16:56 POC Glucose 265 H 195 H 326 H 08/09/19 11:19 POC Glucose 122 H Hospitalist ROS - Review of Systems Constitutional: denies: fever, chills Respiratory: denies: cough, shortness of breath Cardiovascular: denies: chest pain, palpitations Gastrointestinal: denies: nausea, vomiting, abdominal pain - Medication Medications: Active Medications Generic Name Dose Route Start Last Admin Trade Name Freq PRN Reason Stop Dose Admin Acetaminophen 650 mg 08/02/19 16:10 08/06/19 21:28 Tylenol PO 650 mg Q4H PRN Administration Headache/Fever/Mild Pain (1-3) Amlodipine Besylate 10 mg 08/03/19 09:00 08/09/19 10:06 Norvasc PO 10 mg DAILY JULIA Administration Calcitriol 0.25 mcg 08/05/19 09:00 08/09/19 10:06 Rocaltrol PO 0.25 mcg DAILY JULIA Administration Clonidine 0.1 mg 08/03/19 09:00 08/09/19 20:36 Catapres PO 0.1 mg BID JULIA Administration Epoetin Ezequiel-epbx 7,500 unit 08/07/19 09:00 08/07/19 10:48 Retacrit SC 7,500 unit Q7D JULIA Administration Famotidine 20 mg 08/03/19 09:00 08/09/19 10:06 Pepcid SLOW IVP 20 mg DAILY JULIA Administration Ferrous Sulfate 325 mg 08/07/19 17:00 08/09/19 17:34 Feosol PO 325 mg BID-WM JULIA Administration Heparin Sodium (Porcine) 500 units 08/07/19 09:00 08/09/19 20:44 Heparin Lock Flush 100 Units/Ml IVF 500 unit Q12HR JULIA Administration Heparin Sodium (Porcine) 500 units 08/07/19 04:41 08/07/19 04:57 Heparin Lock Flush 100 Units/Ml IVF 500 unit PRN PRN Administration Heparin Flush Hydralazine HCl 10 mg 08/03/19 08:36 08/05/19 01:21 Apresoline SLOW IVP 10 mg Q4H PRN Administration Hypertension Hydralazine HCl 25 mg 08/07/19 09:00 08/09/19 20:37 Apresoline PO 25 mg TID JULIA Administration Insulin Human Lispro 0 units 08/02/19 16:05 08/09/19 17:35 Humalog SC 5 unit .MILD SLIDING SCALE PRN Administration Mild Correctional Scale Insulin Human Lispro 0 units 08/02/19 16:05 08/06/19 21:29 Humalog SC 3 unit .BEDTIME SLIDING SC PRN Administration Bedtime Correctional Scale Levothyroxine Sodium 50 mcg 08/04/19 06:00 08/10/19 05:25 Synthroid PO 50 mcg 0600 JULIA Administration Ondansetron HCl 4 mg 08/02/19 16:10 08/03/19 08:45 Zofran IVP 4 mg Q6H PRN Administration Nausea/Vomiting Pantoprazole Sodium 40 mg 08/03/19 09:00 08/09/19 10:06 Protonix PO 40 mg DAILY JULIA Administration Sodium Bicarbonate 650 mg 08/04/19 21:00 08/09/19 20:36 Bicarbonate, Sodium PO 650 mg TID JULIA Administration - Exam General Appearance: NAD Eye: anicteric sclera ENT: moist mucosa Heart: RRR, no murmur, no gallops Respiratory: CTAB, no wheezes, no rales, no ronchi Gastrointestinal: soft, non-tender, non-distended, normal bowel sounds Psychiatric: normal affect, normal behavior, A&O x 3 Hosp A/P (1) ESRD (end stage renal disease) Code(s): N18.6 - END STAGE RENAL DISEASE Status: Acute (2) DMII (diabetes mellitus, type 2) Status: Chronic 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 Started hemodialysis this week, plan for cuffed HD cath and AV fistula on Tuesday. Outpatient dialysis being arranged in [place] - hepatitis panel normal. NOEMÍ negative, ANCA pending, electropheresis results pending - urine protein > 600 Anemia -continue EPO 7500 SC q week per Dr. Calixto -continue iron supplementation Hypertension- decent control now - continue on clonidine and amlodipine. Continue hydralazin 25 mg tid Acute gastroenteritis- resolved - had WBC of 18 on admission with n/v/diarrhea, now resolved Hyponatremia -resolved Hypothyroidism - continue levothyroxine - TSH was elevated at 24 on admission Metabolic acidosis- resolved - bicarb of 15, on sodium bicarbonate TID Type II diabetes- insulin dependent - blood sugars running high on diabetic diet - increase Lantus to 20 units qhs, will likely need a good bit more, though maybe less than her previous 65 per day due to worse renal failure Disposition: needs dialysis with plan for cuffed HD cath and AV fistula on Tuesday by Dr. Navas, arrange OP hemodialysis, then d/c Code status: full code
[2019-08-10] MEDS ORDERED: Heparin 10,000 UNITS/1 ML VIAL ONE (11:43)
[2019-08-10] MEDS: Amlodipine 10 MG TAB PO SCH (13:30)
[2019-08-10] MEDS: Sodium Bicarbonate Tab 325 MG TAB PO SCH ×3 (13:30→21:23)
[2019-08-10] MEDS: Ferrous Sulfate 325 MG TAB PO SCH ×2 (13:31→17:53)
[2019-08-10] MEDS: hydrALAZINE 25 MG TAB PO SCH ×3 (13:31→21:23)
[2019-08-10] MEDS: cloNIDine 0.1 MG TAB PO SCH (13:31)
[2019-08-10] MEDS: Famotidine/PF 20 mg/2ml Vial SLOW IVP SCH (13:31)
[2019-08-10] MEDS: Calcitriol 0.25 MCG CAP PO SCH (13:31)
[2019-08-10] MEDS: HumaLOG 300 UNITS/3 ML VIAL SC PRN ×2 (17:53→21:24)
[2019-08-10] MEDS: Insulin Glargine 20 UNITS in Pre-Filled Syringe 1 EACH SC SCH (21:24)
[2019-08-11] MEDS: cloNIDine 0.1 MG TAB PO SCH ×3 (01:14→20:18)
[2019-08-11] MEDS: Levothyroxine Sodium 50 MCG TAB PO SCH (05:07)
[2019-08-11 05:20] LABS: #Basophils 0.1 thou/uL (0.0-0.2); #Eosinphils 0.4 thou/uL (0.0-0.7); #Monocytes 0.9 thou/uL (0.11-0.59); #Neutrophils 4.5 thou/uL (1.40-6.50); %Basophils 1.2 % (0.0-1.0); %Eosinophils 4.9 % (0.0-10.0); %Lymphocytes 25.4 % (21.0-51.0); %Monocytes 11.1 % (0.0-10.0); %Neutrophils 57.3 % (42.0-75.0); Hemoglobin 9.2 g/dL (12.0-16.0); Mean Corpuscular HGB CONC 34.3 g/dL (32.0-36.0); Mean Corpuscular Hemoglobin 31.4 pg (27.0-31.0); Mean Corpuscular Volume 91.6 fL (78.0-98.0); Mean Platelet Volume 8.3 fL (7.4-10.4); Platelet Count 219 thou/uL (130-400); RBC Distribution Width 12.8 % (11.5-14.5); Red Blood Cell (RBC) Count 2.91 mill/uL (4.20-5.40); White Blood Cell (WBC) Count 7.8 thou/uL (4.8-10.8)
[2019-08-11 05:41] LABS: Anion Gap 12 mmol/L (10-20); BUN (Urea Nitrogen) 16 mg/dL (9.8-20.1); Calc. Creatinine Clearance 23 mL/min (70-130); Carbon Dioxide 27 mmol/L (22-29); Chloride 103 mmol/L (98-107); Estimated GFR-MDRD 15; Glucose 157 mg/dL (70-105); Potassium 4.1 mmol/L (3.5-5.1); Sodium 138 mmol/L (136-145)
--- NOTE | 2019-08-11 09:12 | PRG ---
DATE OF SERVICE: 08/11/2019 SUBJECTIVE: Ms. Dang is a 59-year-old female, who was admitted for acute kidney injury on top of her chronic renal failure. She has been initiated on hemodialysis due to the unimproved renal function. She is undergoing hemodialysis today. Serological workup for glucose and vasculitis were all negative. No other complaints today. We are attempting about a liter of fluid removal with dialysis today. OBJECTIVE: VITAL SIGNS: Blood pressure 127/77, heart rate 75, respiratory rate 16, temperature 98.6, and pulse ox 96%. GENERAL: Noted to be awake, alert, comfortable, not in distress. SKIN: Adequate turgor. HEENT: Slightly pale conjunctivae. Anicteric sclerae. NECK: No neck mass. No carotid bruits. No JVD. CHEST: No deformities. LUNGS: Clear breath sounds. HEART: Normal sinus rhythm. No murmur. No gallops. No rubs. ABDOMEN: Globular, soft, and nontender. No masses. EXTREMITIES: No edema. No deformities. MEDICATIONS: Medications of August 11, 2019, reviewed. LABORATORY DATA: Laboratories of August 11, 2019; white count 7.8, hemoglobin 9.2. Sodium 138, potassium 4.1, chloride 103, carbon dioxide 27, BUN 16, creatinine 3.2, glucose 157, and calcium 9. ASSESSMENT AND PLAN: 1. Chronic renal failure/end-stage renal disease - secondary to diabetic nephropathy, tolerating hemodialysis regimen. Again, fluid removal only as tolerated by the patient. 2. Hypertension, much improved with adjustment of her BP medications. 3. Renal osteodystrophy - the patient on calcitriol and a phosphate binder. 4. Anemia, continuing weekly Epogen. The patient is scheduled for placement of AV fistula this coming Tuesday. No dialysis scheduled for tomorrow. Job ID: [id number]
[2019-08-11] MEDS ORDERED: Heparin 10,000 UNITS/1 ML VIAL ONE (11:45)
[2019-08-11] MEDS: Calcitriol 0.25 MCG CAP PO SCH (13:00)
[2019-08-11] MEDS: Amlodipine 10 MG TAB PO SCH (13:00)
[2019-08-11] MEDS: hydrALAZINE 25 MG TAB PO SCH ×3 (13:01→20:18)
[2019-08-11] MEDS: Ferrous Sulfate 325 MG TAB PO SCH ×2 (13:01→17:22)
[2019-08-11] MEDS: Sodium Bicarbonate Tab 325 MG TAB PO SCH ×3 (13:01→20:18)
[2019-08-11] MEDS: Famotidine/PF 20 mg/2ml Vial SLOW IVP SCH (13:06)
--- NOTE | 2019-08-11 15:58 | PDOC.HOSPP ---
- Subjective Encounter Date: 08/11/19 (f/u ESRD) Encounter Time: 15:56 Subjective: Pt reports dialysis was better today, however afterwards she sat up and felt dizzy and nausea. That sensation resolved. She denies any pain or other new sx. - Objective Vital Signs & Weight: Vital Signs (12 hours) Temp Pulse Resp BP BP BP Pulse Ox 08/11/19 13:01 77 152/70 H 08/11/19 13:00 77 08/11/19 07:35 97.4 F L 83 16 160/78 H 98 08/11/19 04:00 98.6 F 75 16 127/77 96 Weight Admit Weight 159 lb Weight 167 lb 8.821 oz I&O: 08/10/19 08/11/19 08/12/19 06:59 06:59 06:59 Intake Total 770 920 Output Total 3000 1700 Balance -2230 -780 Result Diagrams: 08/11/19 05:02 08/11/19 05:02 Additional Labs: Accuchecks 08/11/19 08/10/19 08/10/19 05:52 20:29 17:16 POC Glucose 170 H 290 H 321 H EKG Reviewed by me: Yes (tele - sinus 70's) Hospitalist ROS - Medication Medications: Active Medications Generic Name Dose Route Start Last Admin Trade Name Freq PRN Reason Stop Dose Admin Acetaminophen 650 mg 08/02/19 16:10 08/06/19 21:28 Tylenol PO 650 mg Q4H PRN Administration Headache/Fever/Mild Pain (1-3) Amlodipine Besylate 10 mg 08/03/19 09:00 08/11/19 13:00 Norvasc PO 10 mg DAILY JULIA Administration Calcitriol 0.25 mcg 08/05/19 09:00 08/11/19 13:00 Rocaltrol PO 0.25 mcg DAILY JULIA Administration Clonidine 0.1 mg 08/03/19 09:00 08/11/19 13:01 Catapres PO 0.1 mg BID JULIA Administration Epoetin Ezequiel-epbx 7,500 unit 08/07/19 09:00 08/07/19 10:48 Retacrit SC 7,500 unit Q7D JULIA Administration Famotidine 20 mg 08/03/19 09:00 08/11/19 13:06 Pepcid SLOW IVP 20 mg DAILY JULIA Administration Ferrous Sulfate 325 mg 08/07/19 17:00 08/11/19 13:01 Feosol PO 325 mg BID-WM JULIA Administration Heparin Sodium (Porcine) 500 units 08/07/19 09:00 08/11/19 13:02 Heparin Lock Flush 100 Units/Ml IVF 500 unit Q12HR JULIA Administration Heparin Sodium (Porcine) 500 units 08/07/19 04:41 08/07/19 04:57 Heparin Lock Flush 100 Units/Ml IVF 500 unit PRN PRN Administration Heparin Flush Hydralazine HCl 10 mg 08/03/19 08:36 08/05/19 01:21 Apresoline SLOW IVP 10 mg Q4H PRN Administration Hypertension Hydralazine HCl 25 mg 08/07/19 09:00 08/11/19 14:40 Apresoline PO Not Given TID [facility] Insulin Glargine 20 units/ 0.2 mls @ 0 mls/hr 08/10/19 21:00 08/10/19 21:24 Miscellaneous Medication SC 0.2 mls HS JULIA Administration Insulin Human Lispro 0 units 08/02/19 16:05 08/10/19 17:53 Humalog SC 5 unit .MILD SLIDING SCALE PRN Administration Mild Correctional Scale Insulin Human Lispro 0 units 08/02/19 16:05 08/10/19 21:24 Humalog SC 3 unit .BEDTIME SLIDING SC PRN Administration Bedtime Correctional Scale Levothyroxine Sodium 50 mcg 08/04/19 06:00 08/11/19 05:07 Synthroid PO 50 mcg 0600 [facility] Administration Ondansetron HCl 4 mg 08/02/19 16:10 08/03/19 08:45 Zofran IVP 4 mg Q6H PRN Administration Nausea/Vomiting Pantoprazole Sodium 40 mg 08/03/19 09:00 08/11/19 13:00 Protonix PO 40 mg DAILY JULIA Administration Sodium Bicarbonate 650 mg 08/04/19 21:00 08/11/19 14:41 Bicarbonate, Sodium PO Not Given TID [facility] Sodium Chloride 10 ml 08/02/19 16:10 08/10/19 13:32 Flush - Normal Saline IVF 10 ml Q12H PRN Administration Saline Flush - Exam General Appearance: NAD Heart: RRR, no murmur Respiratory: CTAB, no wheezes, no rales, no ronchi Gastrointestinal: soft, non-tender, non-distended, normal bowel sounds Extremities: no cyanosis, no clubbing, no edema Psychiatric: normal affect Hosp A/P (1) ESRD (end stage renal disease) Code(s): N18.6 - END STAGE RENAL DISEASE Status: Acute (2) DMII (diabetes mellitus, type 2) Status: Chronic Qualifiers: Diabetes mellitus senior living insulin use: with exterminator helper use (3) HTN (hypertension) Code(s): I10 - ESSENTIAL (PRIMARY) HYPERTENSION Status: Chronic (4) Hypothyroid Code(s): E03.9 - HYPOTHYROIDISM, UNSPECIFIED Status: Chronic - Plan Appreciate Nephrology consult - dialysis per Dr. Durga Quiroz Gen Surgery consult - plan for cuffed HD cath and AV fisgular on Tuesday, with outpatient dialysis in [place] Anemia - stable on epogen and iron HTN - improved control with dialysis DM type 2 - improved control - continue daily lantus and I will adjust the sliding scale insulin to moderate scale Hypothyroidism - TSH was in the 20's on admission - will recheck tomorrow along with free T4. Pt is on levothyroxine, this may need adjustment. dvt prophy - ambulatory gi prophy - not indicated - on home ppi, continue this. Will d/c IV famotidine code status full reviewed plan of care wiht patient, no questions or further needs at end of eval pt remains at high risk in current condition
[2019-08-11] MEDS: HumaLOG 300 UNITS/3 ML VIAL SC PRN (17:22)
[2019-08-11] MEDS: Insulin Glargine 20 UNITS in Pre-Filled Syringe 1 EACH SC SCH (21:18)
[2019-08-12] MEDS: Levothyroxine Sodium 50 MCG TAB PO SCH (05:07)
[2019-08-12 05:25] LABS: Free T4 (Free Thyroxine) 0.53 ng/dL (0.70-1.48); Thyroid Stimulating Hormone 47.2142 uIU/mL (0.35-4.94)
[2019-08-12] MEDS: Sodium Bicarbonate Tab 325 MG TAB PO SCH (08:40)
[2019-08-12] MEDS: Calcitriol 0.25 MCG CAP PO SCH (08:41)
[2019-08-12] MEDS: Ferrous Sulfate 325 MG TAB PO SCH ×2 (08:42→17:18)
[2019-08-12] MEDS: Amlodipine 10 MG TAB PO SCH (08:42)
[2019-08-12] MEDS: hydrALAZINE 25 MG TAB PO SCH ×3 (08:48→21:05)
[2019-08-12] MEDS: cloNIDine 0.1 MG TAB PO SCH ×2 (08:48→21:04)
[2019-08-12] MEDS: HumaLOG 300 UNITS/3 ML VIAL SC PRN ×2 (12:01→17:18)
--- NOTE | 2019-08-12 12:18 | PRG ---
DATE OF SERVICE: 08/12/2019 SUBJECTIVE: Ms. Dang is a 59-year-old female with chronic renal failure and was initiated on hemodialysis due to the progressive azotemia. She has tolerated her hemodialysis. She did receive a 3.5 hours of hemodialysis yesterday. The patient is scheduled for placement of AV fistula and permanent hemodialysis catheter in a.m. No other complaints. No chest pain or shortness of breath. OBJECTIVE: VITAL SIGNS: Blood pressure 153/74, heart rate 74, respiratory rate 16, temperature 99.1, and pulse ox 99%. GENERAL: Noted to be awake, alert, comfortable, not in distress. SKIN: Adequate turgor. HEENT: Slightly pale conjunctivae. Anicteric sclerae. NECK: No neck mass. No carotid bruits. No JVD. CHEST: No deformities. LUNGS: Clear breath sounds. HEART: Normal sinus rhythm. No murmur. No gallops. No rubs. ABDOMEN: Globular, soft, and nontender. No masses. EXTREMITIES: No edema. MEDICATIONS: Medications of August 12, 2019, reviewed. LABORATORY DATA: Laboratories on August 11, 2019; hemoglobin 9.2. Sodium 138, potassium 4.1, chloride 103, carbon dioxide 27, BUN 16, creatinine 3.2, and calcium 9.0. ASSESSMENT AND PLAN: 1. End-stage renal disease/chronic renal failure - tolerating hemodialysis regimen. No dialysis today. For an arteriovenous fistula and cuffed hemodialysis catheter placement tomorrow. 2. Anemia - we are correcting the anemia currently on weekly Epogen and the patient is on iron supplementation. 3. Hypertension, much improved with adjustment of her BP medications. 4. Renal osteodystrophy. She has been currently on calcitriol. Job ID: [id number]
--- NOTE | 2019-08-12 13:44 | PDOC.HOSPP ---
- Subjective Encounter Date: 08/12/19 (f/u ESRD) Encounter Time: 13:42 Subjective: Pt states it has been a while since having a BM. She denies any n/v, she is having flatus. She denies any shortness of breath. - Objective Vital Signs & Weight: Vital Signs (12 hours) Temp Pulse Resp BP BP BP Pulse Ox 08/12/19 12:00 98.2 F 72 17 139/67 99 08/12/19 08:48 74 08/12/19 08:31 99.1 F 74 16 153/74 H 99 08/12/19 08:00 99 08/12/19 04:00 98.1 F 75 18 129/68 08/12/19 03:24 98.1 F 75 18 129/68 99 Weight Admit Weight 159 lb Weight 168 lb 3.2 oz I&O: 08/11/19 08/12/19 08/13/19 06:59 06:59 06:59 Intake Total 920 1150 Output Total 1700 1700 Balance -780 -550 Result Diagrams: 08/11/19 05:02 08/11/19 05:02 Additional Labs: Accuchecks 08/12/19 08/12/19 08/11/19 10:17 05:35 20:26 POC Glucose 212 H 113 H 205 H 08/11/19 16:41 POC Glucose 253 H EKG Reviewed by me: Yes (tele - sinus 60's) Hospitalist ROS - Medication Medications: Active Medications Generic Name Dose Route Start Last Admin Trade Name Freq PRN Reason Stop Dose Admin Acetaminophen 650 mg 08/02/19 16:10 08/06/19 21:28 Tylenol PO 650 mg Q4H PRN Administration Headache/Fever/Mild Pain (1-3) Amlodipine Besylate 10 mg 08/03/19 09:00 08/12/19 08:42 Norvasc PO 10 mg DAILY JULIA Administration Calcitriol 0.25 mcg 08/05/19 09:00 08/12/19 08:41 Rocaltrol PO 0.25 mcg DAILY JULIA Administration Clonidine 0.1 mg 08/03/19 09:00 08/12/19 08:48 Catapres PO 0.1 mg BID JULIA Administration Epoetin Ezequiel-epbx 7,500 unit 08/07/19 09:00 08/07/19 10:48 Retacrit SC 7,500 unit Q7D JULIA Administration Ferrous Sulfate 325 mg 08/07/19 17:00 08/12/19 08:42 Feosol PO 325 mg BID-WM JULIA Administration Heparin Sodium (Porcine) 500 units 08/07/19 09:00 08/12/19 08:49 Heparin Lock Flush 100 Units/Ml IVF 500 unit Q12HR JULIA Administration Heparin Sodium (Porcine) 500 units 08/07/19 04:41 08/07/19 04:57 Heparin Lock Flush 100 Units/Ml IVF 500 unit PRN PRN Administration Heparin Flush Hydralazine HCl 10 mg 08/03/19 08:36 08/05/19 01:21 Apresoline SLOW IVP 10 mg Q4H PRN Administration Hypertension Hydralazine HCl 25 mg 08/07/19 09:00 08/12/19 08:48 Apresoline PO 25 mg TID JULIA Administration Insulin Glargine 20 units/ 0.2 mls @ 0 mls/hr 08/10/19 21:00 08/11/19 21:18 Miscellaneous Medication SC 0.2 mls HS JULIA Administration Insulin Human Lispro 0 units 08/02/19 16:05 08/10/19 21:24 Humalog SC 3 unit .BEDTIME SLIDING SC PRN Administration Bedtime Correctional Scale Insulin Human Lispro 0 units 08/11/19 15:55 08/12/19 12:01 Humalog SC 4 unit .MODERATE SLIDING SC PRN Administration Moderate Correctional Scale Levothyroxine Sodium 50 mcg 08/04/19 06:00 08/12/19 05:07 Synthroid PO 50 mcg 0600 JULIA Administration Ondansetron HCl 4 mg 08/02/19 16:10 08/03/19 08:45 Zofran IVP 4 mg Q6H PRN Administration Nausea/Vomiting Pantoprazole Sodium 40 mg 08/03/19 09:00 08/12/19 08:41 Protonix PO 40 mg DAILY JULIA Administration Sodium Chloride 10 ml 08/02/19 16:10 08/10/19 13:32 Flush - Normal Saline IVF 10 ml Q12H PRN Administration Saline Flush - Exam General Appearance: NAD Heart: RRR, no murmur Respiratory: no wheezes, no ronchi Respiratory - other findings: faint bibasilar rales, good air movement Gastrointestinal: soft, non-tender, non-distended, normal bowel sounds Extremities: no cyanosis, no clubbing, no edema Psychiatric: normal affect Hosp A/P (1) ESRD (end stage renal disease) Code(s): N18.6 - END STAGE RENAL DISEASE Status: Acute (2) DMII (diabetes mellitus, type 2) Status: Chronic Qualifiers: Diabetes mellitus machine long goods helper insulin use: with custodial use (3) HTN (hypertension) Code(s): I10 - ESSENTIAL (PRIMARY) HYPERTENSION Status: Chronic (4) Hypothyroid Code(s): E03.9 - HYPOTHYROIDISM, UNSPECIFIED Status: Chronic - Plan Appreciate Nephrology consult - dialysis per Dr. Durga Quiroz Gen Surgery consult - plan for cuffed HD cath and AV fisgular on Tuesday, with outpatient dialysis in [place] Anemia - stable on epogen and iron HTN - improved control with dialysis DM type 2 - controlled Hypothyroidism - TSH is 47, Free T4 is low at 0.53 -> will double the dose of levothyroxine, and will need f/u check in 4 weeks. I'm uncertain if this is inadequate dosing , or if there is poor absorption. Constipation - schedule colace and miralax and add prn lactulose dvt prophy - ambulatory gi prophy - not indicated - on home ppi code status full reviewed plan of care jose patient, no questions or further needs at end of eval pt remains at high risk in current condition
[2019-08-12] MEDS ORDERED: Levothyroxine Sodium 50 MCG TAB PO SCH (13:45)
[2019-08-12] MEDS: Polyethylene Glycol 3350 17 GM Packet PO SCH (21:04)
[2019-08-12] MEDS: Docusate 100 MG CAP PO SCH (21:04)
[2019-08-12] MEDS: Insulin Glargine 20 UNITS in Pre-Filled Syringe 1 EACH SC SCH (21:05)
[2019-08-13] MEDS: HumaLOG 300 UNITS/3 ML VIAL SC PRN (05:28)
[2019-08-13] MEDS ORDERED: Levothyroxine Sodium 50 MCG TAB PO SCH (06:00)
[2019-08-13] MEDS: Ferrous Sulfate 325 MG TAB PO SCH ×2 (09:18→16:50)
[2019-08-13] MEDS: cloNIDine 0.1 MG TAB PO SCH ×2 (09:20→20:58)
[2019-08-13] MEDS: Amlodipine 10 MG TAB PO SCH (09:20)
[2019-08-13] MEDS: Calcitriol 0.25 MCG CAP PO SCH (09:20)
[2019-08-13] MEDS: Docusate 100 MG CAP PO SCH ×2 (09:21→20:58)
[2019-08-13] MEDS: hydrALAZINE 25 MG TAB PO SCH ×3 (09:21→20:58)
--- NOTE | 2019-08-13 09:27 | PRG ---
DATE OF SERVICE: 08/13/2019 SUBJECTIVE: Ms. Dang is a 59-year-old female with known history of chronic renal failure/ESRD and has been initiated on dialysis due to progressive azotemia. She is scheduled for an AV fistula and placement of a cuffed hemodialysis catheter today. She did receive dialysis Tuesday. No new complaints. She is doing well. OBJECTIVE: VITAL SIGNS: Blood pressure is noted at 152/73, heart rate 82, respiratory rate 18, temperature 98, and pulse ox 98%. GENERAL: Noted to be awake, alert, comfortable, not in overt distress. SKIN: Adequate turgor. HEENT: She has pinkish conjunctivae. Anicteric sclerae. No neck mass. No carotid bruits. No JVD. CHEST: No deformities. LUNGS: Clear breath sounds. No wheezing. No crackles. HEART: Normal sinus rhythm. No murmur. No gallops. No rubs. ABDOMEN: Globular, soft, nontender. No masses. EXTREMITIES: No edema. No deformities. MEDICATIONS: Medications of August 13, 2019, were reviewed. LABORATORY DATA: Laboratories of August 11, 2019; white count 7.8, hemoglobin 9.2. On August 13, 2019; glucose 330. On August 11, 2019; BUN 16, creatinine 3.2. ASSESSMENT AND PLAN: 1. End-stage renal disease/chronic renal failure secondary to diabetic nephropathy, initiated on hemodialysis. Tolerating said treatment. Continue 3 times a week hemodialysis with this patient. Awaiting placement of AV fistula as well as cuffed hemodialysis catheter. 2. Hypertension, adequate control. Continue current BP medications. 3. Anemia, continuing weekly Epogen. Recheck basic metabolic panel and CBC in a.m. Job ID: [id number]
[2019-08-13] MEDS ORDERED: PROPOFOL 200 MG/20 ML VIAL ONE (10:26)
[2019-08-13] MEDS ORDERED: Bupivacaine HCl 0.5%/Epinephrine 1:200,000/PF 30 ml Vial ONE (10:26)
[2019-08-13] MEDS ORDERED: Fentanyl 100 MCG/2 ML VIAL ONE ×2 (10:29→11:18)
[2019-08-13] MEDS ORDERED: Midazolam HCl 2 mg/2 ml Vial ONE ×2 (10:54→11:18)
--- NOTE | 2019-08-13 11:01 | PDOC.HOSPP ---
- Subjective Encounter Date: 08/13/19 Encounter Time: 16:40 Subjective: Patient back from surgery for tunnelled catheter and right forearm AV fistula. Very scared to move or get up, worried something bad will happen to the surgical sites. Crying some. Reassurance given. - Objective Vital Signs & Weight: Vital Signs (12 hours) Temp Pulse Resp BP BP BP BP 08/13/19 09:21 80 08/13/19 09:20 80 130/69 08/13/19 07:29 98 F 80 18 152/73 H 08/13/19 04:42 98.0 F 79 18 171/82 H 08/12/19 23:47 98.1 F 67 18 121/66 Pulse Ox 08/13/19 09:21 08/13/19 09:20 08/13/19 07:29 98 08/13/19 04:42 100 08/12/19 23:47 97 Weight Admit Weight 159 lb Weight 174 lb 5 oz I&O: 08/12/19 08/13/19 08/14/19 06:59 06:59 06:59 Intake Total 1150 550 Output Total 1700 600 Balance -550 -50 Result Diagrams: 08/11/19 05:02 08/11/19 05:02 Additional Labs: Accuchecks 08/13/19 08/12/19 08/12/19 04:40 20:19 16:22 POC Glucose 330 H 183 H 165 H Hospitalist ROS - Review of Systems Constitutional: denies: fever, chills Respiratory: denies: cough, shortness of breath Cardiovascular: denies: chest pain, palpitations, orthopnea Gastrointestinal: denies: nausea, vomiting, abdominal pain - Medication Medications: Active Medications Generic Name Dose Route Start Last Admin Trade Name Freq PRN Reason Stop Dose Admin Acetaminophen 650 mg 08/02/19 16:10 08/06/19 21:28 Tylenol PO 650 mg Q4H PRN Administration Headache/Fever/Mild Pain (1-3) Amlodipine Besylate 10 mg 08/13/19 09:00 08/13/19 09:20 Norvasc PO Not Given DAILY JULIA Calcitriol 0.25 mcg 08/05/19 09:00 08/13/19 09:20 Rocaltrol PO Not Given DAILY JULIA Clonidine 0.1 mg 08/03/19 09:00 08/13/19 09:20 Catapres PO Not Given BID [facility] Docusate Sodium 100 mg 08/12/19 21:00 08/13/19 09:21 Colace PO Not Given BID [facility] Epoetin Ezequiel-epbx 7,500 unit 08/07/19 09:00 08/07/19 10:48 Retacrit SC 7,500 unit Q7D JULIA Administration Ferrous Sulfate 325 mg 08/07/19 17:00 08/13/19 09:18 Feosol PO Not Given BID-WM [facility] Heparin Sodium (Porcine) 500 units 08/07/19 09:00 08/13/19 09:21 Heparin Lock Flush 100 Units/Ml IVF Not Given Q12HR [facility] Heparin Sodium (Porcine) 500 units 08/07/19 04:41 08/07/19 04:57 Heparin Lock Flush 100 Units/Ml IVF 500 unit PRN PRN Administration Heparin Flush Hydralazine HCl 10 mg 08/03/19 08:36 08/05/19 01:21 Apresoline SLOW IVP 10 mg Q4H PRN Administration Hypertension Hydralazine HCl 25 mg 08/12/19 21:00 08/13/19 09:21 Apresoline PO Not Given TID [facility] Insulin Glargine 20 units/ 0.2 mls @ 0 mls/hr 08/10/19 21:00 08/12/19 21:05 Miscellaneous Medication SC Not Given HS [facility] Insulin Human Lispro 0 units 08/02/19 16:05 08/10/19 21:24 Humalog SC 3 unit .BEDTIME SLIDING SC PRN Administration Bedtime Correctional Scale Insulin Human Lispro 0 units 08/11/19 15:55 08/13/19 05:28 Humalog SC 8 unit .MODERATE SLIDING SC PRN Administration Moderate Correctional Scale Lactulose 20 gm 08/12/19 13:41 08/12/19 14:19 Lactulose PO 20 gm DAILYPRN PRN Administration Constipation Levothyroxine Sodium 100 mcg 08/13/19 06:00 08/13/19 05:24 Synthroid PO 100 mcg 0600 JULIA Administration Ondansetron HCl 4 mg 08/02/19 16:10 08/03/19 08:45 Zofran IVP 4 mg Q6H PRN Administration Nausea/Vomiting Pantoprazole Sodium 40 mg 08/03/19 09:00 08/13/19 09:21 Protonix PO Not Given DAILY JULIA Polyethylene Glycol 17 gm 08/12/19 21:00 08/12/19 21:04 Miralax PO 17 gm HS JULIA Administration Sodium Chloride 10 ml 08/02/19 16:10 08/10/19 13:32 Flush - Normal Saline IVF 10 ml Q12H PRN Administration Saline Flush - Exam General Appearance: awake alert General - other findings: anxious, tearful Eye: anicteric sclera ENT: moist mucosa Heart: RRR, no murmur, no gallops, no rubs Respiratory: CTAB, no wheezes, no rales, no ronchi Gastrointestinal: soft, non-tender, non-distended Extremities - other findings: RUE fistula site with incision C/D/I Psychiatric: normal behavior, A&O x 3 Psychiatric - other findings: anxious Hosp A/P (1) ESRD (end stage renal disease) Code(s): N18.6 - END STAGE RENAL DISEASE Status: Acute (2) DMII (diabetes mellitus, type 2) Status: Chronic Qualifiers: Diabetes mellitus detention insulin use: with detention use (3) HTN (hypertension) Code(s): I10 - ESSENTIAL (PRIMARY) HYPERTENSION Status: Chronic (4) Hypothyroid Code(s): E03.9 - HYPOTHYROIDISM, UNSPECIFIED Status: Chronic - Plan This is a 59 year old female with past medical history of type II diabetes, hypothyroidism who presented with: Acute Kidney Injury- Now End Stage Renal Disease on Dialysis - tunneled cath and AV fistula done today Anemia -continue EPO 7500 SC q week per Dr. Calixto -continue iron supplementation Hypertension- decent control now - continue on clonidine and amlodipine. Continue hydralazin 25 mg tid Acute gastroenteritis- resolved - had WBC of 18 on admission with n/v/diarrhea, now resolved Hyponatremia -resolved Hypothyroidism - continue levothyroxine- increased to 75mg daily, needs repeat labs in 6 weeks - TSH was elevated at 24 on admission Metabolic acidosis- resolved - bicarb of 15, on sodium bicarbonate TID Type II diabetes- insulin dependent - blood sugars running high on diabetic diet - increase Lantus to 25 units qhs, will likely need a good bit more, though maybe less than her previous 65 per day due to worse renal failure Disposition: after HD cath placement need arrange OP hemodialysis, then d/c Code status: full code
[2019-08-13] MEDS ORDERED: Protamine Sulfate 50 MG/5 ML VIAL ONE (11:17)
[2019-08-13] MEDS ORDERED: Heparin 10,000 UNITS/1 ML VIAL ONE (11:17)
[2019-08-13] MEDS ORDERED: Heparin 5,000 UNITS/ML VIAL ONE (11:17)
[2019-08-13] MEDS ORDERED: Lidocaine 1% w/Epinephrine 1:100K 20 ML VIAL ONE (11:17)
[2019-08-13] MEDS ORDERED: Bupivacaine PF 0.5% 30 ML VIAL ONE (11:17)
[2019-08-13] MEDS ORDERED: Sodium Chloride 0.9% 30 ML ONE (11:32)
[2019-08-13] MEDS ORDERED: PROPOFOL 20 ML ONE (12:57)
[2019-08-13] MEDS ORDERED: Promethazine HCl 25 MG/ML VIAL IM PRN (13:50)
[2019-08-13] MEDS ORDERED: Promethazine HCl 25 MG/ML VIAL SLOW IVP PRN (13:50)
[2019-08-13] MEDS ORDERED: Ondansetron HCl/PF 4 MG/2 ML Vial IVP PRN (13:50)
[2019-08-13] MEDS ORDERED: traMADol HCl 50 MG TAB PO PRN (13:53)
--- NOTE | 2019-08-13 14:28 | RAD ---
EXAM: Single view of the chest HISTORY: Central line placement COMPARISON: 08/07/2019 FINDINGS: Single view of the chest shows an enlarged but stable cardiomediastinal silhouette. A righ t IJ dialysis catheter seen with its tip in the superior vena cava. A left IJ central venous catheter seen with its tip in the superior vena cava. No pneumothorax is seen. There is no evidence of consolidation, mass, or pleural effusion. The bones are unremarkable. IMPRESSION: Appropriate position of dialysis and central venous catheters.
--- NOTE | 2019-08-13 14:30 | OP ---
DATE OF PROCEDURE: 08/13/2019 PREOPERATIVE DIAGNOSES: 1. End-stage renal disease. 2. Poor IV access. POSTOPERATIVE DIAGNOSES: 1. End-stage renal disease. 2. Poor IV access. PROCEDURES PERFORMED: 1. Right IJ cuffed tunneled hemodialysis catheter, AngioDynamics, pre-curved. 2. Left IJ triple-lumen catheter for ultrasound fluoroscopy use. 3. Right arm primary arteriovenous fistula, antecubital vein to proximal radial artery outflow, cephalic and basilic vein, calibrated to 4 mm coronary dilator, cephalic vein outflow. ANESTHESIA: Regional anesthesia, TIVA, local 0.5% Marcaine 30 mL mixed with 1% Xylocaine with epinephrine 30 mL. DESCRIPTION OF PROCEDURE: The patient was taken to the operating room, where under regional anesthesia and intravenous sedation, neck, chest, right upper extremity, axilla, and shoulder were prepared with ChloraPrep and draped in routine fashion. Local anesthetic was infiltrated in the skin and subcutaneous tissue for placement of central lines. Ultrasound used to cannulate the right and left internal jugular veins and J-wire was threaded. Trocar and catheters were removed. Skin site was enlarged sharply on both sides. Using a Seldinger technique, a triple-lumen catheter placed in the left internal jugular vein and secured with 3-0 nylon suture. Each port aspirated blood, flushed with saline solution. Sterile dressing applied. On the right side, a stab incision was made over the right chest. Using a tunneling device, a pre-curved AngioDynamics cuffed-tunneled hemodialysis catheter was tunneled between 2 incisions, placed the fabric cuff beneath the skin exit site, catheter secured with 2 interrupted suture of 3-0 nylon. Sterile dressing applied. Smaller and medium size dilators placed over the J-wire in the internal jugular vein. Dilator removed. Catheter placed with the Peel-Away sheath. Peel-Away sheath removed. Platysma was approximated with 4-0 Monocryl, skin with subdermal 4-0 Monocryl. The hemodialysis catheter flushed with saline solution and heparinized saline solution, 1000 units of heparin per mL, indicating the volume of the port. Sterile dressings applied. Fluoroscopic images revealed good line placement. Incision was made in the proximal volar forearm longitudinally below the antecubital fossa, carried down to skin and subcutaneous tissue and a good-sized antecubital vein identified, dissected free, and the proximal radial artery dissected free, brachial, proximal radial artery, ulnar artery dissected free, and after 6000 units of heparin administered intravenously, circulating for 3 minutes, artery inflow and outflow, occluded with a vascular clamp. Antecubital vein dissected free, spatulated and interrogated with coronary dilators, passing coronary dilators from 2 mm to 4 mm coronary dilator throughout the cephalic vein outflow. Cephalic vein to side proximal artery anastomosis created with continuous suture of 6-0 Prolene, completing anastomosis and releasing vascular inflow, noting good Doppler signal in the outflow. The patient tolerated the procedure well. She has dual outflow cephalic and basilic vein, may need a fistulogram in the future. She may need ligation of basilic vein direct outflow to the cephalic vein, but did not want to commit to that at this time due to uncertain venous outflow in the cephalic vein. Subcutaneous tissue was approximated with 3-0 Monocryl, skin with subdermal 4-0 Monocryl, and [place] glue applied. Job ID: [id number]
[2019-08-13] MEDS: Polyethylene Glycol 3350 17 GM Packet PO SCH (20:59)
[2019-08-13] MEDS: Insulin Glargine 25 UNITS in Pre-Filled Syringe 1 EACH SC SCH (21:18)
[2019-08-14] MEDS: Levothyroxine Sodium 75 MCG TAB PO SCH (05:19)
[2019-08-14 05:53] LABS: #Basophils 0.1 thou/uL (0.0-0.2); #Eosinphils 0.3 thou/uL (0.0-0.7); #Lymphocytes 1.5 thou/uL (1.20-3.40); #Monocytes 0.7 thou/uL (0.11-0.59); #Neutrophils 6.5 thou/uL (1.40-6.50); %Basophils 0.7 % (0.0-1.0); %Eosinophils 3.8 % (0.0-10.0); %Lymphocytes 16.1 % (21.0-51.0); %Monocytes 7.7 % (0.0-10.0); %Neutrophils 71.7 % (42.0-75.0); Hemoglobin 8.2 g/dL (12.0-16.0); Mean Corpuscular HGB CONC 31.1 g/dL (32.0-36.0); Mean Corpuscular Hemoglobin 29.2 pg (27.0-31.0); Mean Corpuscular Volume 93.9 fL (78.0-98.0); Mean Platelet Volume 8.1 fL (7.4-10.4); Platelet Count 249 thou/uL (130-400); RBC Distribution Width 12.8 % (11.5-14.5); Red Blood Cell (RBC) Count 2.81 mill/uL (4.20-5.40)
[2019-08-14 06:17] LABS: Anion Gap 10 mmol/L (10-20); BUN (Urea Nitrogen) 23 mg/dL (9.8-20.1); Calc. Creatinine Clearance 16 mL/min (70-130); Calcium 9.5 mg/dL (7.8-10.44); Carbon Dioxide 27 mmol/L (22-29); Chloride 107 mmol/L (98-107); Estimated GFR-MDRD 10; Glucose 83 mg/dL (70-105); Potassium 4.9 mmol/L (3.5-5.1); Sodium 139 mmol/L (136-145)
--- NOTE | 2019-08-14 09:08 | PDOC.HOSPP ---
- Subjective Encounter Date: 08/14/19 Encounter Time: 14:50 Subjective: Patient feeling much less anxious today. Getting up and ambulating well. Awaiting OP dialysis arrangements. - Objective Vital Signs & Weight: Vital Signs (12 hours) Temp Pulse Resp BP Pulse Ox 08/14/19 07:43 98.0 F 78 20 151/66 H 94 L 08/14/19 04:00 98.3 F 69 19 125/69 99 08/14/19 00:00 98.5 F 67 19 124/70 97 Weight Admit Weight 159 lb Weight 174 lb 5 oz I&O: 08/13/19 08/14/19 08/15/19 06:59 06:59 06:59 Intake Total 550 720 Output Total 600 Balance -50 720 Result Diagrams: 08/14/19 05:33 08/14/19 05:33 Additional Labs: Accuchecks 08/14/19 08/13/19 08/13/19 04:46 20:14 16:01 POC Glucose 105 217 H 169 H 08/13/19 10:35 POC Glucose 111 H Hospitalist ROS - Review of Systems Constitutional: denies: fever, chills Respiratory: denies: cough, shortness of breath Cardiovascular: denies: chest pain, palpitations, orthopnea Gastrointestinal: denies: nausea, vomiting, abdominal pain - Medication Medications: Active Medications Generic Name Dose Route Start Last Admin Trade Name Freq PRN Reason Stop Dose Admin Amlodipine Besylate 10 mg 08/13/19 09:00 08/13/19 09:20 Norvasc PO Not Given DAILY [facility] Calcitriol 0.25 mcg 08/05/19 09:00 08/13/19 09:20 Rocaltrol PO Not Given DAILY [facility] Clonidine 0.1 mg 08/03/19 09:00 08/13/19 20:58 Catapres PO 0.1 mg BID [facility] Administration Docusate Sodium 100 mg 08/12/19 21:00 08/13/19 20:58 Colace PO 100 mg BID [facility] Administration Epoetin Ezequiel-epbx 7,500 unit 08/07/19 09:00 08/07/19 10:48 Retacrit SC 7,500 unit Q7D [facility] Administration Ferrous Sulfate 325 mg 08/07/19 17:00 08/13/19 16:50 Feosol PO Not Given BID-WM [facility] Heparin Sodium (Porcine) 500 units 08/07/19 09:00 08/13/19 21:00 Heparin Lock Flush 100 Units/Ml IVF 500 unit Q12HR [facility] Administration Heparin Sodium (Porcine) 500 units 08/07/19 04:41 08/07/19 04:57 Heparin Lock Flush 100 Units/Ml IVF 500 unit PRN PRN Administration Heparin Flush Hydralazine HCl 10 mg 08/03/19 08:36 08/05/19 01:21 Apresoline SLOW IVP 10 mg Q4H PRN Administration Hypertension Hydralazine HCl 25 mg 08/12/19 21:00 08/13/19 20:58 Apresoline PO 25 mg TID [facility] Administration Insulin Glargine 25 units/ 0.25 mls @ 0 mls/hr 08/13/19 21:00 08/13/19 21:18 Miscellaneous Medication SC 0.25 mls HS [facility] Administration Insulin Human Lispro 0 units 08/02/19 16:05 08/10/19 21:24 Humalog SC 3 unit .BEDTIME SLIDING SC PRN Administration Bedtime Correctional Scale Insulin Human Lispro 0 units 08/11/19 15:55 08/13/19 05:28 Humalog SC 8 unit .MODERATE SLIDING SC PRN Administration Moderate Correctional Scale Lactulose 20 gm 08/12/19 13:41 08/12/19 14:19 Lactulose PO 20 gm DAILYPRN PRN Administration Constipation Levothyroxine Sodium 75 mcg 08/14/19 06:00 08/14/19 05:19 Synthroid PO 75 mcg 0600 [facility] Administration Ondansetron HCl 4 mg 08/02/19 16:10 08/03/19 08:45 Zofran IVP 4 mg Q6H PRN Administration Nausea/Vomiting Pantoprazole Sodium 40 mg 08/03/19 09:00 08/13/19 09:21 Protonix PO Not Given DAILY [facility] Polyethylene Glycol 17 gm 08/12/19 21:00 08/13/19 20:59 Miralax PO 17 gm HS [facility] Administration Sodium Chloride 10 ml 08/02/19 16:10 08/10/19 13:32 Flush - Normal Saline IVF 10 ml Q12H PRN Administration Saline Flush - Exam General Appearance: NAD Eye: anicteric sclera ENT: moist mucosa Heart: RRR, no murmur, no gallops, no rubs Respiratory: CTAB, no wheezes, no rales, no ronchi Gastrointestinal: soft, non-tender, non-distended Psychiatric: normal affect, normal behavior, A&O x 3 Hosp A/P (1) ESRD (end stage renal disease) Code(s): N18.6 - END STAGE RENAL DISEASE Status: Acute (2) DMII (diabetes mellitus, type 2) Status: Chronic Qualifiers: Diabetes mellitus long term care social worker insulin use: with assisted use (3) HTN (hypertension) Code(s): I10 - ESSENTIAL (PRIMARY) HYPERTENSION Status: Chronic (4) Hypothyroid Code(s): E03.9 - HYPOTHYROIDISM, UNSPECIFIED Status: Chronic - Plan This is a 59 year old female with past medical history of type II diabetes, hypothyroidism who presented with: Acute Kidney Injury- Now End Stage Renal Disease on Dialysis - tunneled cath and AV fistula done Tuesday Anemia -continue EPO 7500 SC q week per Dr. Calixto -continue iron supplementation Hypertension- decent control now - continue on clonidine and amlodipine. Continue hydralazin 25 mg tid Acute gastroenteritis- resolved - had WBC of 18 on admission with n/v/diarrhea, now resolved Hyponatremia -resolved Hypothyroidism - continue levothyroxine- increased to 75mg daily, needs repeat labs in 6 weeks - TSH was elevated at 24 on admission Metabolic acidosis- resolved - bicarb of 15, on sodium bicarbonate TID Type II diabetes- insulin dependent - blood sugars running high on diabetic diet - increase Lantus to 25 units qhs, blood sugars much better Disposition: need to arrange OP hemodialysis, then d/c Code status: full code
[2019-08-14] MEDS ORDERED: Tuberculin PPD 0.1 ML VIAL I-DERMAL SCH ×2 (12:00→14:00)
--- NOTE | 2019-08-14 12:11 | CON ---
DATE OF CONSULTATION: HISTORY OF PRESENT ILLNESS: Ms. Dang is a 59-year-old female, who was admitted for acute kidney injury. She has been initiated on hemodialysis and she is tolerating dialysis. She is undergoing a 3-1/2 hour hemodialysis treatment today. The plan is to place her three times a week. Recently, she had an AV fistula placed and a cuffed dialysis catheter placed by Dr. Navas. Her femoral dialysis catheter said to have been pulled out. No new complaints today. PHYSICAL EXAMINATION: VITAL SIGNS: Blood pressure 151/66, heart rate 78, respiratory rate 20, temperature 98, pulse ox 94%. GENERAL: Noted to be awake, alert, comfortable, not in distress. SKIN: Adequate turgor. HEENT: Pinkish conjunctivae, anicteric sclerae. NECK: No neck mass. No carotid bruits. No JVD. CHEST: No deformities. LUNGS: Clear breath sounds. HEART: Normal sinus rhythm. No murmur. No gallops. No rubs. ABDOMEN: Globular, soft, nontender, no masses. EXTREMITIES: No edema. No deformities. MEDICATIONS: Medications of August 14, 2019, was reviewed. LABORATORY DATA: Laboratories of August 14, 2019; white count 9, hemoglobin 8.2, sodium 139, potassium 4.9, chloride 107, carbon dioxide 27, BUN , creatinine 4.73, calcium 9.5. ASSESSMENT AND PLAN: 1. Chronic renal failure/end-stage renal disease, stable. We will continue current hemodialysis regimen of 3 times a week. Awaiting outpatient dialysis placement. 2. Anemia, continuing weekly Epogen and iron supplementation. 3. Hypertension, continue current BP medications. The patient has now a permanent AV fistula and cuffed dialysis catheter placed. Overall, agree with current management. Job ID: [id number]
[2019-08-14] MEDS: cloNIDine 0.1 MG TAB PO SCH ×2 (14:33→20:31)
[2019-08-14] MEDS: Amlodipine 10 MG TAB PO SCH (14:33)
[2019-08-14] MEDS: hydrALAZINE 25 MG TAB PO SCH ×3 (14:34→20:31)
[2019-08-14] MEDS: Ferrous Sulfate 325 MG TAB PO SCH ×2 (14:34→16:56)
[2019-08-14] MEDS: Calcitriol 0.25 MCG CAP PO SCH (14:34)
[2019-08-14] MEDS: Docusate 100 MG CAP PO SCH ×2 (14:34→20:31)
[2019-08-14 15:35] VITALS: BMI 26.4
[2019-08-14] MEDS: HumaLOG 300 UNITS/3 ML VIAL SC PRN ×2 (17:34→21:13)
[2019-08-14] MEDS: EPOETIN ALFA-EPBX (ESRD) 4,000 UNIT/ML VIAL SC SCH (17:38)
[2019-08-14] MEDS: Polyethylene Glycol 3350 17 GM Packet PO SCH (20:31)
[2019-08-14] MEDS: Insulin Glargine 25 UNITS in Pre-Filled Syringe 1 EACH SC SCH (21:11)
[2019-08-15] MEDS: Levothyroxine Sodium 75 MCG TAB PO SCH (05:26)
--- NOTE | 2019-08-15 08:55 | PDOC.HOSPP ---
- Subjective Encounter Date: 08/15/19 Encounter Time: 14:10 Subjective: Patient without complaint. Moving around well and much more supervisor weaving. Awaiting outpatient HD arrangement. - Objective Vital Signs & Weight: Vital Signs (12 hours) Temp Pulse Resp BP BP Pulse Ox 08/15/19 08:00 98.4 F 88 18 169/79 H 100 08/15/19 04:00 98.3 F 86 17 143/77 H 98 08/15/19 00:44 98.4 F 76 18 151/75 H 99 Weight Admit Weight 159 lb Weight 174 lb 5 oz I&O: 08/14/19 08/15/19 08/16/19 06:59 06:59 06:59 Intake Total 720 800 Output Total 2800 Balance 720 -2000 Result Diagrams: 08/14/19 05:33 08/14/19 05:33 Additional Labs: Accuchecks 08/15/19 08/14/19 08/14/19 04:48 20:35 16:13 POC Glucose 132 H 339 H 215 H 08/14/19 13:48 POC Glucose 119 H Hospitalist ROS - Review of Systems Constitutional: denies: fever, chills Respiratory: denies: cough, shortness of breath Cardiovascular: denies: chest pain, palpitations Gastrointestinal: denies: nausea, vomiting, abdominal pain - Medication Medications: Active Medications Generic Name Dose Route Start Last Admin Trade Name Freq PRN Reason Stop Dose Admin Amlodipine Besylate 10 mg 08/13/19 09:00 08/14/19 14:33 Norvasc PO 10 mg DAILY [facility] Administration Calcitriol 0.25 mcg 08/05/19 09:00 08/14/19 14:34 Rocaltrol PO 0.25 mcg DAILY [facility] Administration Clonidine 0.1 mg 08/03/19 09:00 08/14/19 20:31 Catapres PO 0.1 mg BID [facility] Administration Docusate Sodium 100 mg 08/12/19 21:00 08/14/19 20:31 Colace PO 100 mg BID [facility] Administration Epoetin Ezequiel-epbx 7,500 unit 08/07/19 09:00 08/14/19 17:38 Retacrit SC 7,500 unit Q7D [facility] Administration Ferrous Sulfate 325 mg 08/07/19 17:00 08/14/19 16:56 Feosol PO Not Given BID-WM [facility] Heparin Sodium (Porcine) 500 units 08/07/19 09:00 08/14/19 20:31 Heparin Lock Flush 100 Units/Ml IVF 500 unit Q12HR [facility] Administration Heparin Sodium (Porcine) 500 units 08/07/19 04:41 08/07/19 04:57 Heparin Lock Flush 100 Units/Ml IVF 500 unit PRN PRN Administration Heparin Flush Hydralazine HCl 10 mg 08/03/19 08:36 08/05/19 01:21 Apresoline SLOW IVP 10 mg Q4H PRN Administration Hypertension Hydralazine HCl 25 mg 08/12/19 21:00 08/14/19 20:31 Apresoline PO 25 mg TID [facility] Administration Insulin Glargine 25 units/ 0.25 mls @ 0 mls/hr 08/13/19 21:00 08/14/19 21:11 Miscellaneous Medication SC 0.25 mls HS [facility] Administration Insulin Human Lispro 0 units 08/02/19 16:05 08/14/19 21:13 Humalog SC 4 unit .BEDTIME SLIDING SC PRN Administration Bedtime Correctional Scale Insulin Human Lispro 0 units 08/11/19 15:55 08/14/19 17:34 Humalog SC 4 unit .MODERATE SLIDING SC PRN Administration Moderate Correctional Scale Lactulose 20 gm 08/12/19 13:41 08/12/19 14:19 Lactulose PO 20 gm DAILYPRN PRN Administration Constipation Levothyroxine Sodium 75 mcg 08/14/19 06:00 08/15/19 05:26 Synthroid PO 75 mcg 0600 [facility] Administration Ondansetron HCl 4 mg 08/02/19 16:10 08/03/19 08:45 Zofran IVP 4 mg Q6H PRN Administration Nausea/Vomiting Pantoprazole Sodium 40 mg 08/03/19 09:00 08/14/19 14:34 Protonix PO 40 mg DAILY [facility] Administration Polyethylene Glycol 17 gm 08/12/19 21:00 08/14/19 20:31 Miralax PO 17 gm HS [facility] Administration Sodium Chloride 10 ml 08/02/19 16:10 08/14/19 14:36 Flush - Normal Saline IVF 10 ml Q12H PRN Administration Saline Flush - Exam General Appearance: NAD, awake alert Eye: anicteric sclera ENT: moist mucosa Heart: RRR, no murmur, no gallops, no rubs Respiratory: CTAB, no wheezes, no rales, no ronchi Gastrointestinal: soft, non-tender, non-distended, normal bowel sounds Hosp A/P (1) ESRD (end stage renal disease) Code(s): N18.6 - END STAGE RENAL DISEASE Status: Acute (2) DMII (diabetes mellitus, type 2) Status: Chronic Qualifiers: Diabetes mellitus fci insulin use: with fci use (3) HTN (hypertension) Code(s): I10 - ESSENTIAL (PRIMARY) HYPERTENSION Status: Chronic (4) Hypothyroid Code(s): E03.9 - HYPOTHYROIDISM, UNSPECIFIED Status: Chronic - Plan This is a 59 year old female with past medical history of type II diabetes, hypothyroidism who presented with: Acute Kidney Injury- Now End Stage Renal Disease on Dialysis - tunneled cath and AV fistula done Tuesday Anemia -continue EPO 7500 SC q week per Dr. Calixto -continue iron supplementation Hypertension- decent control now - continue on clonidine and amlodipine. Continue hydralazin 25 mg tid Acute gastroenteritis- resolved - had WBC of 18 on admission with n/v/diarrhea, now resolved Hyponatremia -resolved Hypothyroidism - continue levothyroxine- increased to 75mg daily, needs repeat labs in 6 weeks - TSH was elevated at 24 on admission Metabolic acidosis- resolved - bicarb of 15, on sodium bicarbonate TID Type II diabetes- insulin dependent - blood sugars running high on diabetic diet - increase Lantus to 25 units qhs, blood sugars much better but still spiking during the day, increase to 30 units sc Disposition: ready for d/c when outpatient HD arranged Code status: full code
[2019-08-15] MEDS: cloNIDine 0.1 MG TAB PO SCH ×2 (09:13→20:51)
[2019-08-15] MEDS: Acetaminophen 500 MG TAB PO PRN ×2 (09:14→15:00)
[2019-08-15] MEDS: Docusate 100 MG CAP PO SCH ×2 (09:14→20:52)
[2019-08-15] MEDS: Calcitriol 0.25 MCG CAP PO SCH (09:14)
[2019-08-15] MEDS: hydrALAZINE 25 MG TAB PO SCH ×3 (09:14→20:51)
[2019-08-15] MEDS: Amlodipine 10 MG TAB PO SCH (09:14)
[2019-08-15] MEDS: Ferrous Sulfate 325 MG TAB PO SCH ×2 (09:14→17:49)
--- NOTE | 2019-08-15 13:19 | PRG ---
DATE OF SERVICE: 08/15/2019 SUBJECTIVE: Ms. Dang is doing well today. Her right hand is functioning well. She has a good thrill and bruit in her right upper arm fistula. Overall, the patient is doing well. I recommend she exercise the right arm and hand without restrictions, exercise it frequently to promote maturation of her fistula. The patient should follow up in my office in 3 to 4 weeks. Central line should be removed prior to discharge. I will see her as needed this hospitalization. Please call if necessary. Job ID: [id number]
[2019-08-15] MEDS: HumaLOG 300 UNITS/3 ML VIAL SC PRN (17:49)
[2019-08-15] MEDS ORDERED: Insulin Glargine 30 UNITS in Pre-Filled Syringe 1 EACH SC SCH (21:00)
[2019-08-15] MEDS: Polyethylene Glycol 3350 17 GM Packet PO SCH (21:08)
[2019-08-16] MEDS: Levothyroxine Sodium 75 MCG TAB PO SCH (04:59)
[2019-08-16] MEDS: HumaLOG 300 UNITS/3 ML VIAL SC PRN ×3 (05:00→15:55)
[2019-08-16] MEDS ORDERED: READ PPD TEST SITE PO SCH (09:00)
--- NOTE | 2019-08-16 09:00 | PDOC.HOSPP ---
- Subjective Encounter Date: 08/16/19 Encounter Time: 15:00 Subjective: Patient doing well. No problems with dialysis today. Just approved for OP dialysis starting Tuesday. - Objective Vital Signs & Weight: Vital Signs (12 hours) Temp Pulse Resp BP Pulse Ox 08/16/19 07:42 100 08/16/19 07:09 98.0 F 71 18 144/71 H 100 08/16/19 04:00 98.0 F 71 17 143/73 H 96 Weight Admit Weight 159 lb Weight 174 lb 5 oz I&O: 08/15/19 08/16/19 08/17/19 06:59 06:59 06:59 Intake Total 800 1900 Output Total 2800 Balance -1999 1899 Result Diagrams: 08/14/19 05:33 08/14/19 05:33 Additional Labs: Accuchecks 08/16/19 08/15/19 08/15/19 05:01 19:16 16:58 POC Glucose 203 H 233 H 225 H 08/15/19 12:41 POC Glucose 176 H Hospitalist ROS - Review of Systems Constitutional: denies: fever, chills Respiratory: denies: cough, shortness of breath Cardiovascular: denies: chest pain, palpitations, orthopnea Gastrointestinal: denies: nausea, vomiting, abdominal pain - Medication Medications: Active Medications Generic Name Dose Route Start Last Admin Trade Name Freq PRN Reason Stop Dose Admin Acetaminophen 1,000 mg 08/13/19 13:53 08/15/19 15:00 Tylenol PO 1,000 mg Q6H PRN Administration Moderate to Severe Pain (6-10) Amlodipine Besylate 10 mg 08/13/19 09:00 08/15/19 09:14 Norvasc PO 10 mg DAILY [facility] Administration Calcitriol 0.25 mcg 08/05/19 09:00 08/15/19 09:14 Rocaltrol PO 0.25 mcg DAILY [facility] Administration Clonidine 0.1 mg 08/03/19 09:00 08/15/19 20:51 Catapres PO 0.1 mg BID [facility] Administration Docusate Sodium 100 mg 08/12/19 21:00 08/15/19 20:52 Colace PO 100 mg BID [facility] Administration Epoetin Ezequiel-epbx 7,500 unit 08/07/19 09:00 08/14/19 17:38 Retacrit SC 7,500 unit Q7D [facility] Administration Ferrous Sulfate 325 mg 08/07/19 17:00 08/15/19 17:49 Feosol PO 325 mg BID-WM [facility] Administration Heparin Sodium (Porcine) 500 units 08/07/19 09:00 08/15/19 20:52 Heparin Lock Flush 100 Units/Ml IVF 500 unit Q12HR [facility] Administration Heparin Sodium (Porcine) 500 units 08/07/19 04:41 08/07/19 04:57 Heparin Lock Flush 100 Units/Ml IVF 500 unit PRN PRN Administration Heparin Flush Hydralazine HCl 10 mg 08/03/19 08:36 08/05/19 01:21 Apresoline SLOW IVP 10 mg Q4H PRN Administration Hypertension Hydralazine HCl 25 mg 08/12/19 21:00 08/15/19 20:51 Apresoline PO 25 mg TID [facility] Administration Insulin Glargine 30 units/ 0.3 mls @ 0 mls/hr 08/15/19 21:00 08/15/19 20:52 Miscellaneous Medication SC 0.3 mls HS [facility] Administration Insulin Human Lispro 0 units 08/02/19 16:05 08/14/19 21:13 Humalog SC 4 unit .BEDTIME SLIDING SC PRN Administration Bedtime Correctional Scale Insulin Human Lispro 0 units 08/11/19 15:55 08/16/19 05:00 Humalog SC 4 unit .MODERATE SLIDING SC PRN Administration Moderate Correctional Scale Lactulose 20 gm 08/12/19 13:41 08/12/19 14:19 Lactulose PO 20 gm DAILYPRN PRN Administration Constipation Levothyroxine Sodium 75 mcg 08/14/19 06:00 08/16/19 04:59 Synthroid PO 75 mcg 0600 [facility] Administration Ondansetron HCl 4 mg 08/02/19 16:10 08/03/19 08:45 Zofran IVP 4 mg Q6H PRN Administration Nausea/Vomiting Pantoprazole Sodium 40 mg 08/03/19 09:00 08/15/19 09:14 Protonix PO 40 mg DAILY [facility] Administration Polyethylene Glycol 17 gm 08/12/19 21:00 08/15/19 21:08 Miralax PO Not Given HS [facility] Sodium Chloride 10 ml 08/02/19 16:10 01/01/20 09:16 Flush - Normal Saline IVF 10 ml Q12H PRN Administration Saline Flush - Exam General Appearance: NAD, awake alert Eye: anicteric sclera ENT: moist mucosa Heart: RRR, no murmur, no gallops, no rubs Respiratory: CTAB, no wheezes, no rales, no ronchi Gastrointestinal: soft, non-tender, non-distended, normal bowel sounds Psychiatric: normal affect, normal behavior, A&O x 3 Hosp A/P (1) ESRD (end stage renal disease) Code(s): N18.6 - END STAGE RENAL DISEASE Status: Acute (2) DMII (diabetes mellitus, type 2) Status: Chronic Qualifiers: Diabetes mellitus fci insulin use: with fci use (3) HTN (hypertension) Code(s): I10 - ESSENTIAL (PRIMARY) HYPERTENSION Status: Chronic (4) Hypothyroid Code(s): E03.9 - HYPOTHYROIDISM, UNSPECIFIED Status: Chronic - Plan This is a 59 year old female with past medical history of type II diabetes, hypothyroidism who presented with: Acute Kidney Injury- Now End Stage Renal Disease on Dialysis - tunneled cath and AV fistula placed, ready for discharge Anemia -continue EPO 7500 SC q week per Dr. Calixto -continue iron supplementation Hypertension- decent control now - continue on clonidine and amlodipine. Continue hydralazin 25 mg tid Acute gastroenteritis- resolved - had WBC of 18 on admission with n/v/diarrhea, now resolved Hyponatremia -resolved Hypothyroidism - continue levothyroxine- increased to 75mg daily, needs repeat labs 6 weeks after change - TSH was elevated at 24 on admission Metabolic acidosis- resolved - bicarb of 15, on sodium bicarbonate TID Type II diabetes- insulin dependent - blood sugars running high on diabetic diet - increase Lantus to 25 units qhs, blood sugars much better but still spiking during the day, increase to 30 units sc Disposition: discharge home today, start OP dialysis on Tuesday, f/u PCP and recheck TSH in 5 more weeks Code status: full code
--- NOTE | 2019-08-16 09:04 | PRG ---
DATE OF SERVICE: 08/16/2019 SERVICE: Renal Medicine. SUBJECTIVE: Ms. Dang is a 59-year-old female with chronic renal failure/ESRD and currently undergoing hemodialysis this morning. She was admitted for worsening renal dysfunction. Due to the progressive azotemia, she was initiated on dialysis and has been tolerating treatment. No new complaints today. Denies any chest pain or shortness of breath. OBJECTIVE: VITAL SIGNS: Blood pressure is 144/71, heart rate 71, respiratory rate 18, temperature 98, and pulse ox 100%. GENERAL: Awake, alert, comfortable, not in distress. SKIN: Adequate turgor. HEENT: She has a pinkish conjunctivae. Anicteric sclerae. NECK: No neck mass. No carotid bruits. No JVD. CHEST: No deformities. LUNGS: Clear breath sounds. HEART: Normal sinus rhythm. No murmur. No gallops. No rubs. ABDOMEN: Globular, soft, and nontender. No masses. EXTREMITIES: No edema. No deformities. MEDICATIONS: Medications of August 16, 2019, was reviewed. LABORATORY DATA: Laboratories of August 14, 2019; hemoglobin 8.2. On August 16, 2019; glucose 203. On August 14, 2019; potassium 4.9, BUN 23, and creatinine 4.73. ASSESSMENT AND PLAN: 1. End-stage renal disease/chronic renal failure, continuing current 3 times a week hemodialysis. Fluid removal as tolerated. We are currently awaiting outpatient dialysis placement. 2. Anemia. Continue weekly Epogen. 3. Renal osteodystrophy, currently on calcitriol. Agree with current management. Job ID: [id number]
[2019-08-16] MEDS ORDERED: Heparin 10,000 UNITS/1 ML VIAL ONE (10:32)
[2019-08-16] MEDS: Amlodipine 10 MG TAB PO SCH (12:22)
[2019-08-16] MEDS: cloNIDine 0.1 MG TAB PO SCH (12:22)
[2019-08-16] MEDS: Calcitriol 0.25 MCG CAP PO SCH (12:22)
[2019-08-16] MEDS: Ferrous Sulfate 325 MG TAB PO SCH ×2 (12:22→15:55)
[2019-08-16] MEDS: hydrALAZINE 25 MG TAB PO SCH ×2 (12:22→15:54)
[2019-08-16] MEDS: Docusate 100 MG CAP PO SCH (12:23)
[2019-08-16 15:58] VITALS: BP 133/69
[2019-08-16 16:03] VITALS: TEMP 98.7
[2019-08-16] MEDS ORDERED: Insulin Glargine 35 UNITS in Pre-Filled Syringe 1 EACH SC SCH (21:00)
--- NOTE | 2019-08-17 10:05 | DIS ---
DATE OF ADMISSION: 08/02/2019 DATE OF DISCHARGE: 08/16/2019 PRIMARY CARE PHYSICIAN: Kehinde Jennings MD. REASON FOR ADMISSION: Intractable nausea and vomiting, acute on chronic renal failure. DIAGNOSES AT DISCHARGE: 1. End-stage renal disease, now on dialysis. 2. Diabetes mellitus type 2, insulin dependent. 3. Hypertension. 4. Hypothyroidism with increased dose of medicine. 5. Anemia of chronic renal disease. 6. Acute gastroenteritis, resolved. 7. Hyponatremia, resolved. 8. Metabolic acidosis, resolved. 9. Sepsis, resolved. PROCEDURES: 1. Renal ultrasound showing no evidence of renal artery stenosis, small left renal cyst. 2. Bilateral upper extremity vein mapping. 3. Right femoral vein Trialysis catheter placement. 4. Left internal jugular triple-lumen catheter placement. 5. Right internal jugular cuffed tunneled hemodialysis catheter placement. 6. Right arm primary arteriovenous fistula of antecubital vein to the proximal radial artery. CONSULTATIONS: 1. Nephrology, Dr. Calixto. 2. General Surgery, Dr. Navas. SUMMARY OF HOSPITAL COURSE: This is a 59-year-old female with a known history of diabetes mellitus, chronic renal failure, hypertension, and hypothyroidism. She came into the emergency room complaining of nausea, vomiting, diarrhea, and leukocytosis, and initially, a tachycardia in the emergency room classifying sepsis. The patient was admitted, given IV fluids, and was also noted to be with severe hypertension up to 200s/90s classifying as hypertensive urgency. She was given nicardipine drip in the emergency room with improved control of her pressures along with Nitro-Bid. The patient had improvement in her nausea, vomiting, diarrhea during her hospitalization and eventually resolved, and her leukocytosis resolved. However, her kidneys did not pick back up. Eventually, she was diagnosed with end-stage renal disease and started on dialysis. Dr. Navas did place a Trialysis catheter and then he placed a cuffed hemodialysis catheter and did right AV fistula in her right upper extremity. The patient tolerated dialysis well. Her blood pressure is markedly improved. She was initially on large doses of Levemir 50 units in the morning and I believe 15 at night. However, in the hospital, she was not requiring insulin likely due to her renal failure. She was eventually titrated up to 30 units of Levemir each evening and she is being discharged to home on that amount. The patient was also noted to have a significantly elevated TSH in the hospital 24.5, recheck 10 days later was 47. Free T4 was low at 0.53, and so her levothyroxine which was 50 mcg per day was increased to 75 and she will need a recheck as an outpatient. DISCHARGE MANAGEMENT: Discharged to home. FOLLOWUP: Follow up with [facility] for Tuesday, Tuesday, dialysis. Also, follow up with Dr. Navas in 3 to [address] Kehinde Jennings in the office, will need to recheck a TSH in 5 weeks on the new levothyroxine dose. ACTIVITY: As tolerated. DIET: Diabetic fluid-restricted diet. IV THERAPY INSTRUCTIONS: Central line care. DISCHARGE MEDICATIONS: 1. Calcitriol 0.25 mcg p.o. daily, 30 capsules dispensed. 2. Clonidine 0.1 mg twice a day, 60 tablets dispensed. 3. Colace 100 mg twice a day, 60 capsules dispensed. 4. Hydralazine 25 mg three times a day, 90 tablets dispensed. 5. Levemir 30 units subcu at bedtime, one vial dispensed. 6. Levothyroxine 75 mcg p.o. daily, 30 tablets dispensed. 7. MiraLAX 17 g p.o. at night, 30 packs dispensed. 8. Amlodipine 10 mg daily. 9. Protonix 40 mg daily. 10. Humulin sliding scale as needed. Arranging the details of this discharge took 32 minutes. Job ID: [id number]
== END 2019-08-16 18:06 | disposition home or self-care (01) | DRG 674 ==
LOC: ERS 11:35 → ERHOLD 14:14 → 2NO 17:58 → T4-A 08-12 16:02
PROVIDERS: ADMIT Internal Medicine; ATTEND Internal Medicine
PROC: 06HY33Z Insertion of Infusion Device into Lower Vein, Percutaneous Approach (ICD-10-PCS; 2019-08-06)
PROC: 5A1D70Z Performance of Urinary Filtration, Intermittent, Less than 6 Hours Per Day (ICD-10-PCS; 2019-08-06)
PROC: 031B3ZF Bypass Right Radial Artery to Lower Arm Vein, Percutaneous Approach (ICD-10-PCS; principal; 2019-08-13)
PROC: 0JH63XZ Insertion of Tunneled Vascular Access Device into Chest Subcutaneous Tissue and Fascia, Percutaneous Approach (ICD-10-PCS; 2019-08-13)
PROC: 02HV33Z Insertion of Infusion Device into Superior Vena Cava, Percutaneous Approach (ICD-10-PCS; 2019-08-13)
PROC: B518ZZA Fluoroscopy of Superior Vena Cava, Guidance (ICD-10-PCS; 2019-08-13)
DX: N17.9 Acute kidney failure, unspecified (principal); E87.2 Acidosis; E87.1 Hypo-osmolality and hyponatremia; E11.22 Type 2 diabetes mellitus with diabetic chronic kidney disease; N18.6 End stage renal disease; E86.0 Dehydration; E03.9 Hypothyroidism, unspecified; E11.42 Type 2 diabetes mellitus with diabetic polyneuropathy; N25.81 Secondary hyperparathyroidism of renal origin; D63.1 Anemia in chronic kidney disease; N25.0 Renal osteodystrophy; E11.65 Type 2 diabetes mellitus with hyperglycemia; I16.0 Hypertensive urgency; I10 Essential (primary) hypertension; K52.9 Noninfective gastroenteritis and colitis, unspecified; E78.5 Hyperlipidemia, unspecified; Z90.49 Acquired absence of other specified parts of digestive tract; E87.6 Hypokalemia; Z90.710 Acquired absence of both cervix and uterus; Z79.4 Long term (current) use of insulin; Z79.899 Other long term (current) drug therapy; Z79.890 Hormone replacement therapy
CPT/HCPCS: 36415; 36416; 71045; 76000; 76770; 80048; 80053; 82550; 82553; 83520; 83605; 83735; 83880; 83970; 84100; 84165; 84166; 84439; 84443; 84484; 85025; 86038; 86225; 86256; 86580; 86704; 86706; 86803; 87340; 87633; 90935; 93005; 93970; 93975; 96374; 96375; C1752; C1769; G0257; G0365; J0360; J0670; J0690; J1642; J1644; J1815; J2250; J2405; J2704; J2720; J3010; J7050; P9047; Q5105; S0020; S0028

== ENCOUNTER 2020-02-21 00:56 | Inpatient (IN) | payer OTHER ==
[2020-02-21] MEDS ORDERED: niCARdipine 20MG In NaCl 20 MG/200 ML BAG ONE (01:35)
[2020-02-21] MEDS ORDERED: Ondansetron PF 4 MG/2 ML Vial ONE (04:44)
[2020-02-21 05:33] VITALS: BMI 26.6
[2020-02-21] MEDS ORDERED: niCARdipine 25 MG in Sodium Chloride 0.9% 250 ML 240 ML IVPB SCH (05:45)
[2020-02-21 05:47] LABS: Troponin I 0.063 ng/mL (< 0.028)
[2020-02-21] MEDS ORDERED: hydrALAZINE 20 MG/ML VIAL SLOW IVP PRN (06:11)
[2020-02-21] MEDS ORDERED: Acetaminophen 325 MG TAB PO PRN (10:43)
[2020-02-21] MEDS ORDERED: Ondansetron ODT 4 MG TAB PO PRN (10:43)
[2020-02-21] MEDS ORDERED: Ondansetron PF 4 MG/2 ML Vial IVP PRN (10:43)
[2020-02-21] MEDS ORDERED: Dextrose 5% in Water 1,000 ML IV PRN (10:44)
[2020-02-21] MEDS ORDERED: Dextrose 50% Abboject 50 ML SYRINGE SLOW IVP PRN (10:44)
--- NOTE | 2020-02-21 10:50 | PDOC.HHP ---
Hospitalist HPI - History of Present Illness N/V History of Present Illness: Hx of gastroparesis. Presented to the ED with N/V that started on the day of admission. Unable to eat or drink. Did not have abd pain. No F/C. Noted to be severely hypertensive in ED. Started on Cardene gtt and transferred here. Feels much better. Able to eat. Has not missed HD. Has not been checking BP at home, but says it is always high at dialysis. Does monitor her blood sugars at home and the have been 160's. Hospitalist ROS - Review of Systems Constitutional: denies: fever, chills Respiratory: denies: cough, dry, shortness of breath Cardiovascular: denies: chest pain, palpitations, orthopnea Gastrointestinal: reports: nausea, vomiting. denies: abdominal pain, diarrhea, constipation All other systems reviewed; all pertinent +/- noted in HPI/Subj - Medication Medications: Active Medications Generic Name Dose Route Start Last Admin Trade Name Freq PRN Reason Stop Dose Admin Hydralazine HCl 10 mg 02/21/20 06:11 02/21/20 06:20 Apresoline SLOW IVP 10 mg Q3H PRN Administration SBP GREATER THAN 160 Unconfirmed: Hydralazine 25 po tid. Amlodipine 10 po q day Levothyroxine Calcitriol Pantoprazole. Lantus 30 units q hs. Hospitalist History - Past Medical History Renal/: reports: Chronic renal failure Endocrine: reports: Diabetes, Hypothyroidism - Past Surgical History Past Surgical History: reports: Cholecystectomy, Hysterectomy - Social History Alcohol: reports: None Drugs: reports: none - Exam General Appearance: NAD, awake alert Eye: PERRL Eye - other findings: Mild exophthalmos Neck: supple, symmetric, no JVD, no thyromegaly, no lymphadenopathy, no carotid bruit Heart: RRR, no gallops, no rubs, normal peripheral pulses, II/IV Heart - other findings: Tachy Respiratory: CTAB, no wheezes, no rales, no ronchi, normal chest expansion, no tachypnea, normal percussion Gastrointestinal: soft, non-tender, non-distended, normal bowel sounds, no palpable masses, no hepatomegaly, no splenomegaly, no bruit Extremities: no cyanosis, no clubbing, no edema Skin: normal turgor, no lesions, no rashes Neurological: cranial nerve grossly intact, normal sensation to touch, no weakness, no focal deficits, no new deficit Musculoskeletal: normal tone, normal strength, no muscle wasting Psychiatric: normal affect, normal behavior, A&O x 3 Hospitalist Results - Labs Lab results: Troponin I 0.063 ng/mL (< 0.028) H 02/21/20 05:09 Additional comment: Results from ED visit reviewed. Hospitalist H&P A/P - Problem (1) Gastroparesis Code(s): K31.84 - GASTROPARESIS Status: Acute (2) Hypokalemia Code(s): E87.6 - HYPOKALEMIA Status: Acute (3) ESRD (end stage renal disease) Code(s): N18.6 - END STAGE RENAL DISEASE Status: Acute (4) Hypertensive urgency Code(s): I16.0 - HYPERTENSIVE URGENCY Status: Acute (5) Nausea & vomiting Code(s): R11.2 - NAUSEA WITH VOMITING, UNSPECIFIED Status: Acute (6) DMII (diabetes mellitus, type 2) Status: Chronic (7) HTN (hypertension) Code(s): I10 - ESSENTIAL (PRIMARY) HYPERTENSION Status: Chronic (8) Hypothyroid Code(s): E03.9 - HYPOTHYROIDISM, UNSPECIFIED Status: Chronic - Plan Plan: HTN Urgency: Off Cardene. Resume po meds, including home Hydralazine and Amlodipine. ESRD: Consult Dr. Calixto. Continue HD. DM with hyperglycemia: Resume home regimen of long acting insulin. SSI Mod. Adjust diet. N/V: Hx of gastroparesis. Symptoms resolved. Hypothyroid: Resume home meds. Hypokalemia: PO replacement.
[2020-02-21] MEDS ORDERED: Potassium Chloride 20 MEQ TAB PO SCH (11:00)
[2020-02-21] MEDS ORDERED: Amlodipine 10 MG TAB PO SCH (13:20)
[2020-02-21] MEDS: hydrALAZINE 25 MG TAB PO SCH ×2 (13:38→21:21)
[2020-02-21] MEDS: Heparin 5,000 UNITS/ML VIAL SC SCH ×2 (13:40→21:22)
--- NOTE | 2020-02-21 17:03 | CON ---
DATE OF CONSULTATION: HISTORY OF PRESENT ILLNESS: Ms. Dang is a 59-year-old white female, who was admitted due to persistent nausea and vomiting. She was also noted to be having labile hypertension. For that reason, she was admitted for further management. We are now being consulted for management of her ESRD as well as maintenance hemodialysis. I have scheduled this patient for hemodialysis today. Today is her regular dialysis day. Her nausea and vomiting slightly improved. REVIEW OF SYSTEMS: No fever or chills. No chest pain or shortness of breath. No productive cough. Denies any palpitations. Positive for nausea and vomiting. Positive for abdominal pain. No constipation. No leg swelling. No syncopal episode. Appetite and energy level are decreased. Occasional joint pains. HOME MEDICATIONS: Include: 1. Hydralazine 25 mg p.o. t.i.d. 2. Amlodipine 10 mg tablet once a day. 3. Calcitriol 0.25 mcg tablet daily. 4. Protonix 40 mg tablet once a day. 5. Levothyroxine 1 tablet daily. PAST MEDICAL HISTORY: 1. ESRD from diabetic nephropathy. 2. Longstanding hypertension. 3. Hyperlipidemia. 4. Type 2 DM. PAST SURGICAL HISTORY: Status post hysterectomy. 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 Lives in [place]. She has 3 children. Lives with one of her children. Education, high school. No smoking. No alcohol intake. No IV drug abuse. Status post blood transfusion. Sedentary lifestyle. ALLERGIES: UNKNOWN. TRAUMA: None. IMMUNIZATIONS: Up-to-date. HOSPITALIZATIONS: Please see past medical history. FAMILY HISTORY: No family history of ESRD. PHYSICAL EXAMINATION: VITAL SIGNS: Blood pressure is 219/93, heart rate is 100, respiratory rate is 16, O2 saturation 100%. GENERAL: Awake, alert, comfortable, not in distress. SKIN: Adequate turgor. HEENT: She has slightly pale conjunctivae. Anicteric sclerae. No neck mass. No carotid bruits. No JVD. CHEST: No deformities. LUNGS: Clear breath sounds. No wheezing. No crackles. HEART: Normal sinus rhythm. No murmurs. No gallops. No rubs. ABDOMEN: Globular, soft, nontender. No masses. EXTREMITIES: No edema. No deformities. LABORATORY DATA: Laboratories of February 20, 2020: White count 9, hemoglobin 10.6. Sodium 136, potassium 3.1, chloride 100, carbon dioxide 21, BUN 25, creatinine 5.89, glucose 357, and calcium 10.6. Troponin I 0.063. On February 20, 2020, chest x-ray showed mild cardiomegaly with no acute findings. ASSESSMENT AND PLAN: 1. End-stage renal disease, stable. We will continue current Tuesday, , and Tuesday dialysis regimen. Again, fluid removal only as tolerated. Review of the last Kt/V suggests she is adequately dialyzed with the current dialysis regimen. 2. Labile hypertension. Continue current blood pressure medications. 3. We will probably restart this patient on clonidine 0.1 mg tablet b.i.d. 4. Borderline anemia. We will simply observe this. Overall agree with current management. Job ID: [id number]
[2020-02-21] MEDS ORDERED: Non-Formulary Item 1 EACH (Insulin Detemir [Levemir] 30 UNIT) SQ SCH (21:00)
[2020-02-21] MEDS ORDERED: Insulin Glargine 35 UNITS in Pre-Filled Syringe 1 EACH SC SCH (21:00)
[2020-02-21] MEDS ORDERED: Famotidine 20 MG TAB PO SCH (21:00)
[2020-02-21] MEDS: Docusate 100 MG CAP PO SCH (21:21)
[2020-02-21] MEDS: cloNIDine 0.1 MG TAB PO SCH (21:22)
[2020-02-21 21:33] VITALS: BP 154/74
[2020-02-21] MEDS: HumaLOG 300 UNITS/3 ML VIAL SC PRN (22:29)
[2020-02-22] MEDS ORDERED: Insulin Regular 300 UNITS/3 ML VIAL IVP SCH (02:15)
[2020-02-22 03:27] LABS: #Basophils 0.1 thou/uL (0.0-0.2); #Eosinphils 0.1 thou/uL (0.0-0.7); #Monocytes 0.5 thou/uL (0.11-0.59); #Neutrophils 7.2 thou/uL (1.40-6.50); %Basophils 0.8 % (0.0-1.0); %Eosinophils 1.5 % (0.0-10.0); %Lymphocytes 20.3 % (21.0-51.0); %Monocytes 5.1 % (0.0-10.0); %Neutrophils 72.4 % (42.0-75.0); Hemoglobin 9.7 g/dL (12.0-16.0); Mean Corpuscular HGB CONC 34.2 g/dL (32.0-36.0); Mean Corpuscular Hemoglobin 31.1 pg (27.0-31.0); Mean Platelet Volume 8.9 fL (7.4-10.4); Platelet Count 207 thou/uL (130-400); RBC Distribution Width 13.3 % (11.5-14.5)
[2020-02-22 03:59] LABS: Anion Gap 14 mmol/L (10-20); BUN (Urea Nitrogen) 35 mg/dL (9.8-20.1); Calc. Creatinine Clearance 11 mL/min (70-130); Calcium 9.9 mg/dL (7.8-10.44); Carbon Dioxide 21 mmol/L (22-29); Chloride 98 mmol/L (98-107); Estimated GFR-MDRD 6; Glucose 331 mg/dL (70-105); Potassium 3.3 mmol/L (3.5-5.1); Sodium 130 mmol/L (136-145)
[2020-02-22] MEDS ORDERED: Levothyroxine Sodium 75 MCG TAB PO SCH (06:00)
[2020-02-22] MEDS: HumaLOG 300 UNITS/3 ML VIAL SC PRN (06:04)
[2020-02-22] MEDS ORDERED: Amlodipine 10 MG TAB PO SCH (09:00)
[2020-02-22] MEDS ORDERED: Calcitriol 0.25 MCG CAP PO SCH (09:00)
[2020-02-22] MEDS: Docusate 100 MG CAP PO SCH (09:26)
[2020-02-22] MEDS: cloNIDine 0.1 MG TAB PO SCH (09:26)
[2020-02-22] MEDS: hydrALAZINE 25 MG TAB PO SCH (09:26)
[2020-02-22] MEDS: Heparin 5,000 UNITS/ML VIAL SC SCH (09:27)
--- NOTE | 2020-02-22 10:00 | PRG ---
DATE OF SERVICE: 02/22/2020 SUBJECTIVE: Ms. Dang is a 59-year-old white female with ESRD and was admitted for labile hypertension. BP medication adjustment has been made with improvement of the blood pressure. In addition, she is currently undergoing hemodialysis. She missed dialysis yesterday and for that reason, she will undergo a 3-hour hemodialysis today. Fluid removal will be done as tolerated. No other complaints. The patient voices no new complaints. No chest pain or shortness of breath. OBJECTIVE: VITAL SIGNS: Blood pressure 159/83, heart rate 77, respiratory rate 10, O2 saturations 100%. GENERAL: Awake, alert, comfortable, not in overt distress. SKIN: Adequate turgor. HEENT: Pinkish conjunctivae. Anicteric sclerae. No neck mass. No carotid bruits. No JVD. CHEST: No deformities. LUNGS: Clear breath sounds. HEART: Normal sinus rhythm. No murmur. No gallops. No rubs. ABDOMEN: Globular, soft, nontender. No masses. EXTREMITIES: No edema. No deformities. MEDICATIONS: Medications of February 22, 2020, was reviewed. LABORATORY DATA: Laboratories of February 22, 2020; sodium 130, potassium 3.3, chloride 98, carbon dioxide 21, BUN 35, creatinine 7.03, glucose 331, calcium 9.9. Troponin I 0.063. Hemoglobin 9.7. ASSESSMENT AND PLAN: 1. Labile hypertension, much improved. Resumption of BP medications. The patient counseled on regarding compliance with BP medications. 2. End-stage renal disease, stable, currently undergoing hemodialysis. Fluid removal as tolerated. 3. Mild hypokalemia. Adjusting potassium bath. 4. From a renal point of view, this patient can be discharged any time. Job ID: [id number]
[2020-02-22 11:42] VITALS: TEMP 98.9
--- NOTE | 2020-02-22 17:52 | DIS ---
DATE OF ADMISSION: 02/21/2020 DATE OF DISCHARGE: 02/22/2020 DISCHARGE DISPOSITION: To home. PRIMARY DISCHARGE DIAGNOSIS: Initial hypertensive emergency, resolved, likely noncompliance with medication. SECONDARY DISCHARGE DIAGNOSES: 1. End-stage renal disease, on hemodialysis. 2. Diabetes mellitus type 2. 3. Intractable nausea and vomiting on admission, resolved, likely due to underlying gastroparesis. 4. Hypothyroidism. PROCEDURES DONE DURING HOSPITALIZATION: The patient has had chest x-ray done on the day of admission, which showed mild cardiomegaly, but no acute findings. H and H 10 and 28, platelet count 207, MCV 91. Discharge BUN and creatinine are 35 and 7.0 , serum bicarb 21. Initial serum glucose was 488. DISCHARGE MEDICATIONS: 1. Norvasc 10 mg p.o. daily. 2. Calcitriol 0.25 mcg p.o. daily. 3. Clonidine 0.1 mg twice daily. 4. Hydralazine 25 mg 3 times daily. 5. Colace 100 mg twice daily. 6. Levemir 30 units subcu at bedtime and Humalog coverage as before. 7. Synthroid 75 mcg p.o. daily. 8. Protonix 40 mg p.o. daily. 9. MiraLAX 17 g p.o. at bedtime. ALLERGIES: NO KNOWN DRUG ALLERGIES. INPATIENT CONSULT: Dr. Calixto for Nephrology. DISCHARGE PLAN: The patient to follow up with Dr. Jennings, her primary care physician, in 1 week. She is also advised to check blood pressure and pulse twice daily and record along with fingerstick glucose as well to follow up with her primary care physician in 1 week. BRIEF COURSE DURING HOSPITALIZATION: The patient initially presented to [facility] with complaints of epigastric pain, nausea, and vomiting. The patient has had blood pressures of 247/98 on arrival. Also, her fingerstick glucose was more than 400. The patient was initially placed on Cardene drip and was admitted to [facility]. She has had hemodialysis done and has had consultation with Dr. Calixto for Nephrology. The patient was placed back on her home medications for hypertension and diabetes. She has responded well to above measures. Likely, the patient is noncompliant with her medications. No new medications were added to her current regimen. She is hemodynamically stable, ambulating and eating well prior to discharge. Please note, the patient dramatically responded to above measures and will be shortly discharged home. She is cleared for discharge by Dr. Calixto. The patient dialysis on Tuesdays, , and Saturdays. She needs to have her next dialysis on Tuesday. I have seen and examined patient on the day of discharge. Job ID: [id number] MTDD
--- NOTE | 2020-02-24 00:03 | PQF ---
CLINICAL DOCUMENTATION CLARIFICATION FORM: Dear : Nataliia Boston Date / Time: 02/24/2020 Please exercise your independent, professional judgment in responding to the clarification form. Clinical indicators are provided on the bottom of this form for your review Please check appropriate box(es) to clarify if the following diagnosis has been ruled in our ruled out: NSTEMI [ ] Ruled in diagnosis [ ] Continue to treat [ ] Resolved [ x ] Ruled out diagnosis [ ] Improving [ ] Cannot rule out diagnosis [ ] Other diagnosis [ ] Unable to determine In addition, please specify: Present on Admission (POA): [ ] Yes [ ] No [ ] Unable to determine To be completed by CDI/Coding staff for physician review: Present Clinical Indicators - Signs / Symptoms / Labs Results and Location in Medical Record [ x ] ED final diagnosis: NSTEMI ED Provider Report [ x ] Troponin I is 0.063 (H) Laboratory Present Risk Factors Results and Location in Medical Record [ x ] Diabetes, hypertensive emergency Discharge summary [ x ] Noncompliance with medications Discharge summary Present Treatments Results and Location in Medical Record [ x ] Cardene 20mg 02/21/20 Medications CDS/Manager Logistic Signature: [id number] Phone #: Date/Time: 02/24/2020 This is a permanent part of the Medical Record [facility]
== END 2020-02-22 13:35 | disposition home or self-care (01) | DRG 304 ==
LOC: ERS 00:56 → ERHOLD 02:19 → IMCU/EMU 05:23
PROVIDERS: ADMIT Internal Medicine; ATTEND Internal Medicine
PROC: 5A1D70Z Performance of Urinary Filtration, Intermittent, Less than 6 Hours Per Day (ICD-10-PCS; principal; 2020-02-21)
DX: I16.1 Hypertensive emergency (principal); N18.6 End stage renal disease; E11.22 Type 2 diabetes mellitus with diabetic chronic kidney disease; E11.43 Type 2 diabetes mellitus with diabetic autonomic (poly)neuropathy; K31.84 Gastroparesis; E03.9 Hypothyroidism, unspecified; E87.6 Hypokalemia; I12.0 Hypertensive chronic kidney disease with stage 5 chronic kidney disease or end stage renal disease; E78.5 Hyperlipidemia, unspecified; E11.65 Type 2 diabetes mellitus with hyperglycemia; Z91.14 Patient's other noncompliance with medication regimen; Z99.2 Dependence on renal dialysis; Z90.49 Acquired absence of other specified parts of digestive tract; Z90.710 Acquired absence of both cervix and uterus
CPT/HCPCS: 36415; 36416; 80048; 84484; 85025; 90935; 93005; 96365; 96366; G0257; J0360; J1644; J1815; J2405

== ENCOUNTER 2021-03-23 18:37 | Inpatient (IN) | payer OTHER ==
[~2021-03-23 18:37] MED LIST: Iopamidol-370 76% 500 ML 1 ML ONE
[2021-03-23 19:40] LABS: #Eosinphils 0.1 thou/uL (0.0-0.7); #Lymphocytes 0.9 thou/uL (1.20-3.40); #Monocytes 0.5 thou/uL (0.11-0.59); #Neutrophils 9.2 thou/uL (1.40-6.50); %Basophils 0.2 % (0.0-1.0); %Eosinophils 0.9 % (0.0-10.0); %Lymphocytes 8.8 % (21.0-51.0); %Monocytes 4.6 % (0.0-10.0); %Neutrophils 85.5 % (42.0-75.0); Hemoglobin 8.9 g/dL (12.0-16.0); Mean Corpuscular HGB CONC 32.2 g/dL (32.0-36.0); Mean Corpuscular Volume 99.3 fL (78.0-98.0); Mean Platelet Volume 9.2 fL (7.4-10.4); Platelet Count 231 thou/uL (130-400); RBC Distribution Width 14.3 % (11.5-14.5); Red Blood Cell (RBC) Count 2.78 mill/uL (4.20-5.40); White Blood Cell (WBC) Count 10.7 thou/uL (4.8-10.8)
[2021-03-23 20:04] LABS: ALT (SGPT) 16 U/L (8-55); AST (SGOT) 15 U/L (5-34); Albumin 3.1 g/dL (3.5-5.0); Alkaline Phosphatase 183 U/L (40-110); Anion Gap 19 mmol/L (10-20); BUN (Urea Nitrogen) 71 mg/dL (9.8-20.1); Bilirubin, Total 0.7 mg/dL (0.2-1.2); Calc. Creatinine Clearance 0 mL/min (70-130); Calcium 7.7 mg/dL (7.8-10.44); Carbon Dioxide 23 mmol/L (22-29); Chloride 87 mmol/L (98-107); Globulin 3.7 g/dL (2.4-3.5); Lipase 148 U/L (8-78); Magnesium 1.9 mg/dL (1.6-2.6); Potassium 5.2 mmol/L (3.5-5.1); Protein, Total 6.8 g/dL (6.0-8.3); Sodium 124 mmol/L (136-145)
[2021-03-23 20:16] LABS: Glucose 847 mg/dL (70-105)
[2021-03-23 23:23] LABS: Lactic Acid 1.3 mmol/L (0.5-2.2)
[2021-03-23 23:31] LABS: Actual Bicarbonate (HCO3v) 23 mEq/L (22-28); Analyzer IN Cardio ER; Base Excess -1.7 mEq/L (-2.0 to +3.0); Calcium, Ionized (venous) 0.95 mmol/L (1.16-1.32); Chloride (VBG) 87 mmol/L (98-106); Hemoglobin (Hb) 9.6 g/dL (11.7-16.0); Potassium (VBG) 5.09 mmol/L (3.70-5.30); Sodium 123.5 mmol/L (133-146); pH (venous) 7.37 (7.32-7.43)
[2021-03-23] MEDS ORDERED: Cefepime 2 GM VIAL ONE (23:33)
[2021-03-23] MEDS ORDERED: Dexamethasone 4 mg/ml Vial ONE (23:33)
[2021-03-23] MEDS ORDERED: Insulin Regular 300 UNITS/3 ML VIAL ONE (23:33)
[2021-03-23] MEDS ORDERED: Azithromycin 500 MG VIAL ONE (23:33)
[2021-03-24] MEDS ORDERED: Azithromycin 500 MG VIAL ONE (00:35)
[2021-03-24] MEDS ORDERED: INSULIN REGULAR IN 0.9 % NACL 100 UNIT/100 ML BAG ONE (01:10)
[2021-03-24 03:26] LABS: Glucose 767 mg/dL (70-105)
[2021-03-24] MEDS ORDERED: Electrolyte Replacement Protocol 1 EACH IVPB ONE (03:34)
[2021-03-24] MEDS ORDERED: Acetaminophen 325 MG TAB PO PRN (03:34)
[2021-03-24] MEDS ORDERED: NS 0.9% w/ 20 MEQ KCL 1,000 ML IV PRN ×2 (03:34)
[2021-03-24] MEDS ORDERED: Dextrose 5 %-0.45 % NaCl 1,000 ML IV PRN (03:34)
[2021-03-24] MEDS ORDERED: D5 1/2 NS w/20 mEq KCL 1,000 ML IV PRN (03:34)
[2021-03-24] MEDS ORDERED: Sodium Chloride 0.9% 1,000 ML IV PRN ×4 (03:34)
[2021-03-24] MEDS ORDERED: Ondansetron PF 4 MG/2 ML Vial IVP PRN (03:34)
[2021-03-24] MEDS ORDERED: HUMULIN R 100 UNITS in Sodium Chloride 0.9% 100 ML IVPB SCH (03:45)
[2021-03-24 04:05] LABS: Anion Gap 20 mmol/L (10-20); BUN (Urea Nitrogen) 75 mg/dL (9.8-20.1); Calc. Creatinine Clearance 0 mL/min (70-130); Calcium 7.9 mg/dL (7.8-10.44); Carbon Dioxide 22 mmol/L (22-29); Chloride 90 mmol/L (98-107); Potassium 4.9 mmol/L (3.5-5.1); Sodium 127 mmol/L (136-145)
[2021-03-24 04:12] LABS: Glucose 720 mg/dL (70-105)
[2021-03-24 05:06] LABS: Glucose 603 mg/dL (70-105)
[2021-03-24 06:25] LABS: Glucose 296 mg/dL (70-105)
[2021-03-24] MEDS ORDERED: HumaLOG 300 UNITS/3 ML VIAL SC PRN ×2 (07:40)
[2021-03-24] MEDS ORDERED: Dextrose 50% Abboject 50 ML SYRINGE SLOW IVP PRN (07:40)
[2021-03-24] MEDS ORDERED: Dextrose 5% in Water 1,000 ML IV PRN (07:40)
[2021-03-24] MEDS ORDERED: hydrALAZINE 20 MG/ML VIAL SLOW IVP PRN (07:45)
[2021-03-24 08:28] LABS: Anion Gap 18 mmol/L (10-20); BUN (Urea Nitrogen) 23 mg/dL (9.8-20.1); Calc. Creatinine Clearance 0 mL/min (70-130); Calcium 8.8 mg/dL (7.8-10.44); Carbon Dioxide 23 mmol/L (22-29); Chloride 99 mmol/L (98-107); Glucose 158 mg/dL (70-105); Potassium 3.5 mmol/L (3.5-5.1); Sodium 136 mmol/L (136-145)
[2021-03-24] MEDS ORDERED: Dexamethasone 4 mg/ml Vial SLOW IVP SCH (09:00)
[2021-03-24] MEDS ORDERED: Amlodipine 10 MG TAB PO SCH (09:00)
[2021-03-24] MEDS ORDERED: Famotidine 20 MG TAB PO SCH (09:00)
[2021-03-24] MEDS ORDERED: Heparin 5,000 UNITS/ML VIAL SC SCH (09:00)
[2021-03-24] MEDS ORDERED: Ascorbic Acid 500 mg Chewable Tablet PO SCH (09:00)
[2021-03-24] MEDS ORDERED: Zinc Sulfate 220 MG CAP PO SCH (09:00)
[2021-03-24] MEDS ORDERED: Cholecalciferol 1,000 UNITS (25 MCG) TAB PO SCH (09:00)
[2021-03-24] MEDS ORDERED: Dexamethasone 10 MG/ML VIAL ONE (09:08)
[2021-03-24] MEDS ORDERED: Famotidine 20 MG TAB ONE (09:08)
[2021-03-24] MEDS ORDERED: HumaLOG 300 UNITS/3 ML VIAL ONE (12:04)
[2021-03-24 12:38] LABS: Anion Gap 15 mmol/L (10-20); BUN (Urea Nitrogen) 37 mg/dL (9.8-20.1); Calc. Creatinine Clearance 0 mL/min (70-130); Calcium 8.3 mg/dL (7.8-10.44); Carbon Dioxide 27 mmol/L (22-29); Chloride 96 mmol/L (98-107); Glucose 322 mg/dL (70-105); Potassium 4.3 mmol/L (3.5-5.1); Sodium 134 mmol/L (136-145)
[2021-03-24 12:45] VITALS: BP 182/96
[2021-03-24] MEDS ORDERED: Lantus 1000 UNITS/10 ML VIAL SC SCH (21:00)
== END 2021-03-24 17:58 | disposition home or self-care (01) | DRG 177 ==
LOC: ERS 18:37 → ERHOLD 23:26
PROVIDERS: ADMIT Internal Medicine; ATTEND Internal Medicine
PROC: 8E0ZXY6 Isolation (ICD-10-PCS; principal; 2021-03-23)
PROC: 5A1D70Z Performance of Urinary Filtration, Intermittent, Less than 6 Hours Per Day (ICD-10-PCS; 2021-03-24)
DX: U07.1 COVID-19 (principal); E11.00 Type 2 diabetes mellitus with hyperosmolarity without nonketotic hyperglycemic-hyperosmolar coma (NKHHC); N18.6 End stage renal disease; J12.82 Pneumonia due to coronavirus disease 2019; J96.01 Acute respiratory failure with hypoxia; I50.43 Acute on chronic combined systolic (congestive) and diastolic (congestive) heart failure; E87.1 Hypo-osmolality and hyponatremia; I31.3 Pericardial effusion (noninflammatory); I13.2 Hypertensive heart and chronic kidney disease with heart failure and with stage 5 chronic kidney disease, or end stage renal disease; E03.9 Hypothyroidism, unspecified; E87.5 Hyperkalemia; E11.42 Type 2 diabetes mellitus with diabetic polyneuropathy; E11.22 Type 2 diabetes mellitus with diabetic chronic kidney disease; I50.9 Heart failure, unspecified; E83.52 Hypercalcemia; T38.0X5A Adverse effect of glucocorticoids and synthetic analogues, initial encounter; Z79.899 Other long term (current) drug therapy; Z79.890 Hormone replacement therapy; Z79.4 Long term (current) use of insulin; Z90.49 Acquired absence of other specified parts of digestive tract; Z99.2 Dependence on renal dialysis; Z90.712 Acquired absence of cervix with remaining uterus; Z83.3 Family history of diabetes mellitus
CPT/HCPCS: 36415; 36416; 71045; 71275; 80053; 82553; 82728; 82805; 82947; 83605; 83690; 83735; 83880; 83930; 84484; 85025; 85379; 86140; 87040; 93005; 96365; 96375; J0456; J0692; J1100; J1644; J1815; Q9967

== ENCOUNTER 2021-06-19 16:32 | Emergency (ER) | payer OTHER | END 2021-06-19 18:45 | disposition home or self-care (01) | LOC: ERS 16:32 | DX: S80.12XA Contusion of left lower leg, initial encounter (principal); E03.9 Hypothyroidism, unspecified; I10 Essential (primary) hypertension; E11.42 Type 2 diabetes mellitus with diabetic polyneuropathy; Z99.2 Dependence on renal dialysis; W22.8XXA Striking against or struck by other objects, initial encounter ==

== ENCOUNTER 2023-09-06 12:10 | Emergency (ER) | payer OTHER ==
[2023-09-06 13:39] LABS: #Basophils 0.1 thou/uL (0.0-0.2); #Eosinphils 0.3 thou/uL (0.0-0.7); #Monocytes 0.6 thou/uL (0.11-0.59); #Neutrophils 4.5 thou/uL (1.40-6.50); %Basophils 0.9 % (0.0-1.0); %Eosinophils 4.6 % (0.0-10.0); %Lymphocytes 15.6 % (21.0-51.0); %Monocytes 9.2 % (0.0-10.0); %Neutrophils 69.4 % (42.0-75.0); Hematocrit 36.1 % (36.0-47.0); Hemoglobin 11.3 g/dL (12.0-16.0); Mean Corpuscular HGB CONC 31.3 g/dL (32.0-36.0); Mean Corpuscular Hemoglobin 30.1 pg (27.0-31.0); Mean Platelet Volume 10.3 fL (7.4-10.4); Platelet Count 151 10x3/uL (130-400); RBC Distribution Width 17.2 % (11.5-14.5); Red Blood Cell (RBC) Count 3.76 mill/uL (4.20-5.40); White Blood Cell (WBC) Count 6.5 10x3/uL (4.8-10.8)
[2023-09-06 14:01] LABS: ALT (SGPT) 16 U/L (8-55); AST (SGOT) 26 U/L (5-34); Albumin 3.9 g/dL (3.4-4.8); Alkaline Phosphatase 175 U/L (40-110); Anion Gap 15 mmol/L (10-20); BUN (Urea Nitrogen) 56 mg/dL (9.8-20.1); Bilirubin, Total 1.2 mg/dL (0.2-1.2); CK (CPK) 91 U/L (29-168); Calc. Creatinine Clearance 0 mL/min (70-130); Calcium 10.2 mg/dL (7.8-10.44); Carbon Dioxide 31 mmol/L (23-31); Chloride 95 mmol/L (98-107); Estimated GFR 9; Globulin 4.7 g/dL (2.4-3.5); Glucose 195 mg/dL (80-115); Protein, Total 8.6 g/dL (5.8-8.1); Sodium 136 mmol/L (136-145)
== END 2023-09-06 15:47 ==
LOC: ERS 12:10
DX: L03.115 Cellulitis of right lower limb (principal); E11.22 Type 2 diabetes mellitus with diabetic chronic kidney disease; N18.6 End stage renal disease; I12.0 Hypertensive chronic kidney disease with stage 5 chronic kidney disease or end stage renal disease; E03.9 Hypothyroidism, unspecified; Z99.2 Dependence on renal dialysis; Z79.82 Long term (current) use of aspirin; Z79.899 Other long term (current) drug therapy
CPT/HCPCS: 36415; 80053; 82550; 85025